=== PATIENT | female | born 1960 | race Caucasian/White ===

== ENCOUNTER 2020-04-28 14:25 | Outpatient (REF) | payer OTHER, SELFPAY ==
--- NOTE | 2020-04-28 15:36 | XR_ITS ---
EXAMINATION: XR CHEST CLINICAL INFORMATION: Asthma COMPARISON: None TECHNIQUE: 2 views of the chest were obtained. FINDINGS: Cardiac silhouette is at the upper limits of normal in size. Lungs are well aerated. There is no lobar consolidation. No pleural effusion or pneumothorax. Mild diffuse degenerative changes of the spine. IMPRESSION: No acute pulmonary pathology.
--- NOTE | 2020-04-28 15:36 | XR_ITS ---
EXAMINATION: XR SOFT TISSUE NECK CLINICAL INDICATION: Unspecified asthma, uncomplicated. J45.909. COMPARISON: None. TECHNIQUE: 2 views of the soft tissue neck were obtained. FINDINGS: The nasopharynx is patent measuring 4-6 mm in width. The vallecula is not well visualized, likely due to laxity of the tongue and technique. The epiglottis and aryepiglottic folds are normal. The subglottic airway is unremarkable. There is no prevertebral soft tissue swelling. There are degenerative changes cervical spine with disc narrowing C4-C5 and C5-C6. Both levels show mild retrolisthesis of C4 on C5 and C5 on C6, likely due to degenerative changes. There is no disc or facet widening. No vertebral compression. The lung apices are clear. IMPRESSION: 1. Unremarkable epiglottis, aryepiglottic folds, and subglottic airway. 2. Vallecula not well visualized, likely related to laxity of tongue and technique. 3. No prevertebral soft tissue swelling. 4. Degenerative changes cervical spine with disc narrowing and mild retrolisthesis C4-C5 and at C5-C6.
== END 2020-04-28 14:26 | disposition home or self-care (01) ==
LOC: HO.XRAY 14:25
PROVIDERS: PCP Internal Medicine; Referring Provider Internal Medicine; Visit Provider Internal Medicine
DX: R59.0 Localized enlarged lymph nodes (principal); R06.00 Dyspnea, unspecified; J45.909 Unspecified asthma, uncomplicated; G47.33 Obstructive sleep apnea (adult) (pediatric)
CPT/HCPCS: 70360; 71046; 99203; 99204

== ENCOUNTER 2020-05-05 11:07 | Outpatient (REF) | payer OTHER, SELFPAY ==
--- NOTE | 2020-05-06 08:38 | PFT_ITS ---
Forced vital capacity and FEV1 are normal. CTY53-32 slightly reduced. MVV normal. Post bronchodilator therapy, there is a significant improvement in BIF00-83, and slight improvement in FEV1. Total lung capacity and residual volume normal. Diffusion capacity normal. CONCLUSION: Mild obstructive airway disorder with complete reversibility after bronchodilator therapy. This finding is consistent with a mild degree of bronchial asthma. Clinical correlation recommended. MD ELEN Clemons/MODL / [id number]
== END 2020-05-05 11:08 | disposition home or self-care (01) ==
LOC: HO.RESP 11:07
PROVIDERS: PCP Internal Medicine; Visit Provider Internal Medicine
DX: R06.00 Dyspnea, unspecified (principal); J45.909 Unspecified asthma, uncomplicated
CPT/HCPCS: 94010

== ENCOUNTER 2020-05-24 10:50 | Outpatient (REF) | payer OTHER, SELFPAY ==
[2020-05-24 13:19] LABS: Blood Urea Nitrogen 21 mg/dL (9-16); Estimated Glomerular Filt Rate > 60
== END 2020-05-24 10:51 | disposition home or self-care (01) ==
LOC: HO.LAB 10:50
PROVIDERS: Visit Provider Internal Medicine
DX: R59.0 Localized enlarged lymph nodes (principal)
CPT/HCPCS: 82565; 84520

== ENCOUNTER 2020-05-25 09:07 | Outpatient (REF) | payer OTHER, SELFPAY ==
--- NOTE | 2020-05-25 09:12 | CT_ITS ---
EXAMINATION: CT SOFT TISSUE NECK WITH CONTRAST CLINICAL INFORMATION: Localized swelling. Mass and lump in neck. COMPARISON: Soft tissue neck radiographs 04/28/2020. TECHNIQUE: Following the intravenous administration of 60 mL of Omnipaque 350 intravenous contrast, helical imaging was performed in the axial plane with generation of coronal and sagittal reformatted images. This CT examination was performed using dose optimization techniques as appropriate, variously including the following: *Automated exposure control *Adjustment of mA and/or kV according to patient size (this includes techniques or standardized protocols for targeted exams where dose is matched to indication/reason for exam; i.e. extremities or head) *Use of iterative reconstruction technique DLP: 357 mGy-cm FINDINGS: There is a nasopharyngeal mucosal mass best illustrated on axial image 26 of 137 series 4. Multiple bulky right and left cervical lymph nodes are noted. For instance the dominant right level II cervical lymph node measures 3.3 cm in maximal transaxial dimension best illustrated on axial image 48 of 137 series 4 with multiple areas of central necrosis. A necrotic 2.3 cm left level II cervical lymph node is visualized on axial image 45 of the same series. Scattered small albeit suspicious right level V cervical lymph nodes are also noted. Television Production Technician spaces are symmetric. Parotid and submandibular glands are normal. The tongue base and epiglottis are normal. Preepiglottic fat is preserved. Glottic and subglottic airways are normal. The thyroid gland is normal and the remainder of the visualized visceral soft tissues are normal. Lung apices are clear. Aortic arch apex is normal. Cervical carotid and vertebral arteries are patent. Internal jugular veins fill symmetrically. There is no acute osseous finding. Specifically no worrisome lytic or blastic osseous lesion. There is a right mastoid tip effusion. Mild to moderate paranasal sinus disease within the sphenoid sinus. Globes and orbits are symmetric. Limited visualization of intracranial compartment reveals no abnormal finding. 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
[2020-05-25] MEDS: iohexoL 350 MG/ML 100 ML INFUS..BTL 60 ML IV (09:46)
== END 2020-05-25 09:08 | disposition home or self-care (01) ==
LOC: HO.CT 09:07
PROVIDERS: PCP Internal Medicine; Visit Provider Internal Medicine
DX: R22.1 Localized swelling, mass and lump, neck (principal)
CPT/HCPCS: 70491; Q9967

== ENCOUNTER → 2020-06-01 11:18 | Outpatient (BNVA) | payer OTHER, SELFPAY | PROVIDERS: PCP Internal Medicine; Visit Provider Internal Medicine | DX: R22.1 Localized swelling, mass and lump, neck (principal); J45.909 Unspecified asthma, uncomplicated | CPT/HCPCS: 99212 ==

== ENCOUNTER → 2020-06-18 13:49 | Outpatient (REF) | payer OTHER, SELFPAY ==
--- NOTE | 2020-06-18 14:00 | ECG_ITS ---
Test Reason : ANESTHESIA PRE OP Blood Pressure : / mmHG Vent. Rate : 076 BPM Atrial Rate : 076 BPM P-R Int : 164 ms QRS Dur : 088 ms QT Int : 382 ms P-R-T Axes : 020 007 020 degrees QTc Int : 429 ms Normal sinus rhythm Normal ECG No previous ECGs available Referred By: Kimberly Marques Electronically Signed By:KAYE MARTIN
== END ==
LOC: HO.CARD 13:49
PROVIDERS: PCP Internal Medicine; Visit Provider Nurse Practitioner Family
DX: Z01.818 Encounter for other preprocedural examination (principal)
CPT/HCPCS: 93005

== ENCOUNTER 2020-06-21 11:51 | Outpatient (REF) | payer OTHER, SELFPAY ==
[2020-06-21 12:19] LABS: MANUAL DIFF FLAG NO
[2020-06-21 12:25] LABS: Basophils Percent Auto 0.4 % (0-2); Eosinophils Percent Auto 0.4 % (0-4); Hematocrit 42.9 % (37-47); Hemoglobin 13.7 g/dl (12.0-16.0); Imm Gran Abs Auto 0.04 X10*3/uL (0.00-0.03); Imm Gran Pct Auto 0.5 % (0.0-0.4); Lymphocytes Absolute Auto 1.6 X10*3/uL (1.2-4.9); Lymphocytes Percent Auto 18.6 % (20-40); Mean Corpuscular HGB Conc 31.9 g/dl (31.0-35.0); Mean Corpuscular Hemoglobin 31.6 pg (27.0-33.0); Mean Corpuscular Volume 98.8 fL (80-98); Mean Platelet Volume 9.6 fL (9.4-12.3); Monocytes Absolute Auto 0.7 X10*3/uL (0.1-1.2); Monocytes Percent Auto 7.9 % (2-11); Neutrophils Absolute Auto 6.2 X10*3/uL (2.0-8.3); Neutrophils Percent Auto 72.2 % (45-73); Platelet Count 267 X10*3/uL (160-400); Red Blood Count 4.34 X10*6/uL (4.20-5.50); Red Cell Distribution Width 12.5 % (11.0-16.0); White Blood Count 8.6 X10*3/uL (4.8-10.8)
[2020-06-21 13:08] LABS: Anion Gap 16 (12-20); Blood Urea Nitrogen 19 mg/dL (9-16); Carbon Dioxide 28 mmol/L (22-29); Chloride 101 mmol/L (96-108); Estimated Glomerular Filt Rate > 60; Glucose Fasting 90 mg/dL (60-99); Potassium 4.2 mmol/l (3.3-5.1); Sodium 141 mmol/L (135-145)
[2020-06-25 11:52] LABS: Mixing Study - PT 10.3 sec (9.0-11.5); PTT LA 29 sec (< OR = 40)
== END 2020-06-21 11:52 | disposition home or self-care (01) ==
LOC: HO.LAB 11:51
PROVIDERS: Absent Provider Internal Medicine; PCP Internal Medicine; Visit Provider Nurse Practitioner Family
DX: Z01.818 Encounter for other preprocedural examination (principal); I10 Essential (primary) hypertension
CPT/HCPCS: 36415; 80048; 85025; 85611; 85732

== ENCOUNTER 2021-09-08 10:11 | Outpatient (REF) | payer OTHER, SELFPAY ==
--- NOTE | ~2021-09-08 | MM_ITS ---
EXAMINATION: MM SCREENING DIGITAL BREAST TOMOSYNTHESIS, BILATERAL CLINICAL INFORMATION: Screening. Asymptomatic. History head and neck cancer. The lifetime risk of breast cancer based on the Tyrer-Cuzick Model is 10%. COMPARISON: Mammography: 12/16/2014, 03/05/2012 TECHNIQUE: Digital breast tomosynthesis is performed in both the craniocaudal and mediolateral oblique views along with computer-aided detection (CAD). Synthesized 2D images are generated from the tomosynthesis. Additional right MLO view is provided. FINDINGS: There are scattered areas of fibroglandular density (ACR BI-RADS breast composition Category b). There is a fine fibronodular parenchymal pattern similar to prior studies. No interval developing density or dominant nodularity. There is a port partially overlying the posterior right axilla on MLO view. There are no significant masses, abnormal calcifications, or other abnormalities. Skin contours are smooth. MM/MM tomosynthesis screening BI IMPRESSION: No mammographic evidence of malignancy. ASSESSMENT: BI-RADS 2: Benign RECOMMENDATION: Routine annual mammography screening. This patient's information was entered into a reminder system with a target due date for their next mammogram.
== END 2021-09-08 10:12 | disposition home or self-care (01) ==
LOC: HO.MAMMO 10:11
PROVIDERS: PCP Internal Medicine; Visit Provider Internal Medicine
DX: Z12.31 Encounter for screening mammogram for malignant neoplasm of breast (principal)
CPT/HCPCS: 77063; 77067

== ENCOUNTER 2021-11-17 08:28 | Outpatient (REF) | payer OTHER, SELFPAY ==
[2021-11-17 08:48] LABS: MANUAL DIFF FLAG NO
[2021-11-17 09:58] LABS: Basophils Percent Auto 0.4 % (0-2); Eosinophils Absolute Auto 0.1 X10*3/uL (0.0-0.4); Eosinophils Percent Auto 1.6 % (0-4); Hematocrit 35.7 % (37.0-47.0); Hemoglobin 11.8 g/dl (12.0-16.0); Imm Gran Abs Auto 0.03 X10*3/uL (0.00-0.03); Imm Gran Pct Auto 0.7 % (0.0-0.4); Lymphocytes Absolute Auto 0.5 X10*3/uL (1.2-4.9); Mean Corpuscular HGB Conc 33.1 g/dl (31.0-35.0); Mean Corpuscular Hemoglobin 32.2 pg (27.0-33.0); Mean Corpuscular Volume 97.3 fL (80.0-98.0); Monocytes Absolute Auto 0.5 X10*3/uL (0.1-1.2); Monocytes Percent Auto 11.8 % (2-11); Neutrophils Absolute Auto 3.3 x10*3/uL (2.0-8.3); Neutrophils Percent Auto 73.5 % (45-73); Platelet Count 215 X10*3/uL (160-400); Red Blood Count 3.67 X10*6/uL (4.20-5.50); Red Cell Distribution Width 13.7 % (11.0-16.0); White Blood Count 4.5 X10*3/uL (4.8-10.8)
[2021-11-17 10:05] LABS: Appearance Urine CLEAR; Color Urine YELLOW; Glucose Urine UA NEG (NEG); Leukocyte Esterase Urine NEG (NEG); Nitrite Urine NEG (NEG); Urine Blood NEG (NEG); Urine Ketones NEG (NEG); Urine Protein NEG (NEG-TRACE)
[2021-11-17 10:16] LABS: Alanine Aminotransferase 18 U/L (0-31); Albumin Level 4.2 g/dL (3.5-5.0); Alkaline Phosphatase 83 U/L (39-117); Anion Gap 12 (12-20); Aspartate Amino Transferase 34 U/L (5-31); Bilirubin Total 0.7 mg/dL (0.0-1.0); Blood Urea Nitrogen 19 mg/dL (9-16); Carbon Dioxide 30 mmol/L (22-29); Chloride 97 mmol/L (96-108); Cholesterol 185 mg/dL; Estimated Glomerular Filt Rate 41; Glucose Fasting 98 mg/dL (60-99); HDL Cholesterol 56 mg/dL; LDL Cholesterol Calculated 70 mg/dl; Potassium 4.2 mmol/L (3.3-5.1); Sodium 135 mmol/L (135-145); Total Protein 7.5 g/dL (6.5-8.0); Triglycerides 295 mg/dL
[2021-11-17 10:39] LABS: TSH reflex Free T4 12.24 uIU/mL (0.32-4.0)
[2021-11-17 11:12] LABS: Free T4 (Free Thyroxine) 0.96 ng/dL (0.71-1.85)
== END 2021-11-17 08:29 | disposition home or self-care (01) ==
LOC: HO.LAB 08:28
PROVIDERS: PCP Internal Medicine; Visit Provider Internal Medicine
DX: E78.00 Pure hypercholesterolemia, unspecified (principal); I10 Essential (primary) hypertension
CPT/HCPCS: 36415; 80053; 80061; 81003; 84439; 84443; 85025

== ENCOUNTER 2022-10-24 13:39 | Outpatient (AMB) | payer OTHER, SELFPAY ==
[2022-10-24 13:47] VITALS: BP 118/76; PULSE 68; O2SAT 99; BMI 30.6
--- NOTE | 2022-10-24 13:47 | A.OFFPC_ITS ---
Vital Signs 10/24/22 13:47 Height 5 ft 2 in Weight 167 lb 4 oz BMI 30.6 BP 118/76 Blood Pressure Location Lt brachial Position Sitting Pulse 68 Pulse Source Pulse Oximeter Pulse Oximetry (%) 99 Oxygen Delivery Method Room Air Intake Visit Reasons: HTN, thyroid Intake Note: Patient is here to discuss hypertension and thyroid. Bioinformatics Analyst Required: No Accompanied by: Self / Same As Patient Allergies No Known Allergies Allergy (Verified 02/23/23 14:42) Medication List - Last Reconciled 10/24/22 by Jakob Reynolds MD amlodipine 10 mg PO DAILY atenolol 25 mg PO DAILY fluticasone propionate 50 mcg/actuation 2 sprays intranasal DAILY PRN 30 days levothyroxine 50 mcg PO DAILY loratadine 10 mg PO DAILY lorazepam 0.5 mg PO BID PRN 30 days rosuvastatin 5 mg PO DAILY sertraline 100 mg PO DAILY 90 days Tobacco use date assessed: 10/24/22 HPI HTN, thyroid HPI Details Patient comes in today for her follow up visit - was last seen by me almost a year ago on 12/24/2020 States that she completed her cancer Tx last year in 11/2020 Has been experiencing symptoms of neuropathy for the past year, which she was advised are mostly due to side effects from her chemothera[y Reports that her symptoms mostly include on and off burning pain and numbness in both feet and also (+) milder similar symptoms in her hands States that the numbness in her feet sometimes go up into her ankles and legs lately Notes that her anxiety has also been increasing lately States that she is only her Sertraline at 50 mg (instead of 100 mg QD) as she has felt very tired and does not feel like doing anything when she was on 100 mg QD a couple of months ago and she cut down on her dose on her own She denies any headaches or dizziness Denies any chest pains, no shortness of breath No nausea/ vomiting, no abdominal pain No change in bowel habits noted REPLACED BY [facility] Medical History (Updated 02/25/23 @ 18:30 by Jakob Reynolds MD) Allergic rhinitis Anxiety Asthma Asthma Benign essential hypertension Cervical adenopathy Depression Dyspnea Hypertension Hypothyroidism (acquired) Impaired fasting glucose Neck mass Obesity (BMI 30-39.9) MELLY (obstructive sleep apnea) Osteoarthritis of hand Pre-op examination Pre-op examination Pure hypercholesterolemia Recurrent sinus infections Squamous cell carcinoma of nasopharynx Vitamin B12 deficiency Surgical History No pertinent past surgical history Family History Father Hypertension Cardiovascular disease Mother Unknown family medical history Social History Housing: House Alcohol intake: former Patient Tobacco Use Status: Former Tobacco user Years Smoked: 44 years but stopped for years at a time e-Cigarette/Vaping Use: Never Used Second Hand Smoke Exposure: No service: No Current occupational status: unemployed and disabled Cognitive needs: No Hearing needs: No Vision needs: Yes (glasses) Questionnaire PHQ-9 Over the last 2 weeks, how often have you been bothered by any of the following problems? 1. Little interest or pleasure in doing things: several days 2. Feeling down, depressed, or hopeless: several days 3. Trouble falling or staying asleep, or sleeping too much: several days 4. Feeling tired or having little energy: not at all 5. Poor appetite or overeating: not at all 6. Feeling bad about yourself - or that you are a failure or have let yourself or your family down: not at all 7. Trouble concentrating on things, such as reading the newspaper or watching television: not at all 8. Moving or speaking so slowly that other people could have noticed. Or the opposite - being so fidgety or restless that you have been moving around a lot more than usual: not at all 9. Thoughts that you would be better off or of hurting yourself in some way: not at all Total score: 3 Depression Screening Interpretation: Positive Depression Screening Follow-up: Existing condition and In treatment 13332 - PHQ-9 Billing: Yes Source: Developed by Drs. Eddie Maldonado, Isabel Castellanos, Jose Puga and colleagues, with an educational bree from [employer]. Thrive Questionnaire Declines Thrive assessment: No Date Thrive assessed: 10/24/22 I am a: Patient What is your living situation today?: I have a steady place to live Within the past 12 months, did the food you bought not last and you didn't have the money to get more?: Never true Within the past 12 months, did you worry whether your food would run out before you got money to buy more?: Never true Do you have trouble paying for medicines?: No Do you have trouble getting transportation to medical appointments?: No Do you have trouble paying your heating and electricity bill?: No Do you have trouble taking care of your child, family member or friend?: No Do you have trouble with day-to-day activities such as bathing, preparing meals, shopping, managing finances, etc.?: No Are you currently unemployed and looking for a job?: No Are you interested in more education?: No Currently or been in a relationship where the following occur: no concerns reported AUDIT C Alcohol Use Questionnaire (AUDIT-C) 1. How often do you have a drink containing alcohol?: Never 3. How often do you have six or more drinks on one occasion?: Never Total Score: 0 Score Reviewed/Action Taken: Yes DAVIS-7 AMB Questionnaire DAVIS-7 Date DAVIS - 7 assessed: 10/24/22 Feeling nervous, anxious, or on edge: 1 = Several days Not being able to stop or control worryin = Several days Worrying too much about different things: 1 = Several days Trouble relaxin = Several days Being so restless that it is hard to sit still: 0 = Not at all Becoming easily annoyed or irritable: 0 = Not at all Feeling afraid as if something awful might happen: 0 = Not at all Total DAVIS-7 score (0-4 normal; 5-9 mild; 10-14 moderate; 15-21 severe): 4 Source: Developed by Drs. Eddie Maldonado, Isabel Castellanos, Jose Puga and colleagues, with an educational bree from [employer]. Review of Systems Const Denies chills, Reports fatigue, Denies fever(s) and Denies headache(s) ENT Denies dysphagia, Denies dizziness, Reports dry mouth (at times), Denies otalgia, Denies headache(s), Denies neck pain, Denies odynophagia, Reports tinnitus (on and off) and Denies sore throat Card Denies chest pain, Denies palpitations and Denies dyspnea Resp Denies cough and Denies dyspnea GI Denies abdominal pain, Denies constipation, Denies dysphagia, Denies heartburn, Denies diarrhea, Denies nausea, Denies odynophagia and Denies vomiting Denies difficulty voiding, Denies nocturia and Denies dysuria Musc Denies neck pain and Reports tingling (in both lower extremities) Neuro Denies dizziness, Denies headache(s), Reports tingling (in both lower extremities) and Reports paresthesias Psych Reports anxiety (increasing) Endo Reports fatigue and Denies palpitations Physical exam (Primary Care) Vital Signs: Last Vital Signs Pulse 68 10/24/22 13:47 BP 118/76 10/24/22 13:47 Pulse Ox 99 10/24/22 13:47 Oxygen Delivery Method Room Air 10/24/22 13:47 BMI result Body Mass Index 30.6 Tobacco/Smoking Status: Tobacco use Status Tobacco use date assessed 10/24/22 10/24/22 13:58 Patient Tobacco Use Status Former Tobacco user 10/24/22 13:58 e-Cigarette/Vaping Use Never Used 10/24/22 13:58 PHQ-9: PHQ-9 Score PHQ-9: Total score 3 10/24/22 14:28 Depression Screening Interpretation: Positive Depression Screening Follow-up: Existing condition and In treatment Thrive Assessment: Date of Thrive Assessment Date Thrive assessed 10/24/22 10/24/22 13:58 Currently or been in a relationship where the following occur: no concerns reported Const General: no acute distress and alert HENMT Ears: TM's normal bilaterally and EAC's normal Throat: Yes posterior oropharynx normal and Yes tonsils normal (no TP congestion noted) Neck Neck: Yes no lymphadenopathy and Yes supple Resp Auscultation: clear to auscultation bilaterally, no rales and no wheezes Cardio Rate: regular rate Rhythm: regular rhythm Heart sounds: no murmurs GI Palpation (GI): Soft to palpation and nontender Auscultation: normal bowel sounds Extrem General: Yes no clubbing, cyanosis or edema Assessment and Plan Assessment & Plan (1) Squamous cell carcinoma of nasopharynx: Code(s): C11.9 - Malignant neoplasm of nasopharynx, unspecified Plan: Patient completed her concurrent Cisplatin and radiation therapy for squamous cell carcinoma of the nasopharynx back in November 2020 and is currently in remission Follow up with ENT and oncology as scheduled for continuing surveillance (2) Neuropathy: Code(s): G62.9 - Polyneuropathy, unspecified Plan: Patient was reportedly started on Duloxetine 30 mg by oncology (AUTOMATION TESTER) for her neuropathy before but she is not sure if she should continue on it while she is also on her Sertraline Have instructed patient to continue on Duloxetine 30 mg QD and we will try to see we can wean her off Sertraline in the meantime Had advised her to stay on Duloxetine daily and we can slowly adjust / increase her dose over time, depending on her response to the medication (3) Benign essential hypertension: Code(s): I10 - Essential (primary) hypertension Plan: Reinforced low sodium diet - goal is systolic BP of at least 130 mm or less Continue Amlodipine 10 mg QD and Atenolol 25 mg QD (4) Pure hypercholesterolemia: Code(s): E78.00 - Pure hypercholesterolemia, unspecified Plan: Reinforced low cholesterol diet Continue Rosuvastatin 5 mg QD Will recheck her labs and fasting lipids for follow up [facility] as she has not had any follow-up labs done in almost a year now Will also have her recheck again her fasting lipids in 4 months for follow-up (5) Impaired fasting glucose: Code(s): R73.01 - Impaired fasting glucose Plan: In-office HgbA1c was normal at 5.5% when previously checked Reinforced low calorie diet/exercise as tolerated. (6) Hypothyroidism (acquired): Code(s): E03.9 - Hypothyroidism, unspecified Plan: Continue Levothyroxine 50 mcg QD Will recheck her TFTs [facility] for follow up (7) Asthma: Comment: Mild. Needs to use Albuterol MDI 2 puffs q 4-6 Hrs only PRN Code(s): J45.909 - Unspecified asthma, uncomplicated Qualifiers: Asthma severity: unspecified severity Asthma persistence: unspecified Asthma complication type: uncomplicated Qualified Code(s): J45.909 - Unspecified asthma, uncomplicated Plan: Stable - has Albuterol HFA that he uses at 1 to 2 puffs 4 times a day as needed but has not needed to use this in a while now (8) Allergic rhinitis: Code(s): J30.9 - Allergic rhinitis, unspecified Qualifiers: Allergic rhinitis trigger: unspecified Allergic rhinitis seasonality: unspecified Qualified Code(s): J30.9 - Allergic rhinitis, unspecified Plan: Continue Loratadine 10 mg QD and Fluticasone nasal spray 50 mcg QD PRN (9) Anxiety: Code(s): F41.9 - Anxiety disorder, unspecified Plan: Continue Lorazepam 0.5 mg BID PRN (10) Depression: Code(s): F32.9 - Major depressive disorder, single episode, unspecified Qualifiers: Depression Type: major depressive disorder Major depression recurrence: recurrent Active/Remission status: currently active Major depression episode severity: unspecified Qualified Code(s): F33.9 - Major depressive disorder, recurrent, unspecified Plan: Was started on Duloxetine 30 mg BID for her neuropathy by oncology last year Will have patient try to wean off her Sertraline slowly - she is currently on 100 mg QD and she can start by cutting her dose in half to 50 mg QD for 1 week, then she can try stopping the medicine completely after that Have instructed patient to call at any time should she develop any problems while she is weaning herself off her Sertraline Follow up with psychiatry as scheduled (11) Obesity (BMI 30-39.9): Code(s): E66.9 - Obesity, unspecified Plan: Reinforced diet/exercise as tolerated/lose weight Plan Follow up in 4 months Orders: Orders Complete Blood Count Auto Diff 10/24/22 I10 - Essential (primary) hypertension [facility] [place]. Panel Fast 10/24/22 E78.00 - Pure hypercholesterolemia, unsp ecified Lipid Panel 10/24/22 E78.00 - Pure hypercholesterolemia, unspecified Thyroid Stimulating Hormone 10/24/22 E03.9 - Hypothyroidism, unspecified Free T4 (Free Thyroxine) 10/24/22 E03.9 - Hypothyroidism, unspecified Vitamin B12 and Folate 10/24/22 E53.8 - Deficiency of other specified B group vitamins, G62.9 - Polyneuropathy, unspecified Vitamin D 25-OH Total 10/24/22 E55.9 - Vitamin D deficiency, unspecified UA CC w/rflx Micro + Cult 10/24/22 R30.0 - Dysuria Erythrocyte Sedimentation Rate 10/24/22 G62.9 - Polyneuropathy, unspecified Hemoglobin A1c 10/24/22 R73.01 - Impaired fasting glucose [facility] [place]. Panel Fast 4 Months E78.00 - Pure hypercholesterolemia, unspecified Lipid Panel 4 Months E78.00 - Pure hypercholesterolemia, unspecified Medications: New duloxetine 30 mg PO DAILY 30 caps 1RF 30 days G62.9 - Polyneuropathy, unspecified, F32.9 - Major depressive disorder, single episode, unspecified, F41.9 - Anxiety disorder, unspecified Discontinued sertraline Discontinued Reason: Doctor's Order 100 mg PO DAILY 90 days 90 tabs 1RF Coding Level of Care Code Est Pt Level 4 (08173) Diagnoses Squamous cell carcinoma of nasopharynx C11.9 Neuropathy G62.9 Benign essential hypertension I10 Pure hypercholesterolemia E78.00 Impaired fasting glucose R73.01 Hypothyroidism (acquired) E03.9 Asthma J45.909 Asthma severity: unspecified severity Asthma persistence: unspecified Asthma complication type: uncomplicated Allergic rhinitis J30.9 Allergic rhinitis trigger: unspecified Allergic rhinitis seasonality: unspecified Anxiety F41.9 Depression F33.9 Depression Type: major depressive disorder Major depression recurrence: recurrent Active/Remission status: currently active Major depression episode severity: unspecified Obesity (BMI 30-39.9) E66.9
== END 2022-10-24 14:38 | disposition home or self-care (01) ==
LOC: HO.HMGH 13:39
PROVIDERS: PCP Internal Medicine; Visit Provider Internal Medicine
DX: C11.9 Malignant neoplasm of nasopharynx, unspecified (principal); G62.9 Polyneuropathy, unspecified; I10 Essential (primary) hypertension; E78.00 Pure hypercholesterolemia, unspecified; R73.01 Impaired fasting glucose; E03.9 Hypothyroidism, unspecified; J45.909 Unspecified asthma, uncomplicated; J30.9 Allergic rhinitis, unspecified; F41.9 Anxiety disorder, unspecified; F33.9 Major depressive disorder, recurrent, unspecified; E66.9 Obesity, unspecified
CPT/HCPCS: 99214

== ENCOUNTER 2022-12-13 09:05 | Outpatient (REF) | payer MEDICARE, MEDICAID, SELFPAY ==
[2022-12-13 11:01] LABS: MANUAL DIFF FLAG NO
[2022-12-13 11:08] LABS: Basophils Percent Auto 0.7 % (0-2); Eosinophils Absolute Auto 0.1 X10*3/uL (0.0-0.4); Eosinophils Percent Auto 2.5 % (0-4); Hematocrit 35.3 % (37.0-47.0); Hemoglobin 11.7 g/dl (12.0-16.0); Imm Gran Abs Auto 0.02 X10*3/uL (0.00-0.03); Imm Gran Pct Auto 0.5 % (0.0-0.4); Lymphocytes Absolute Auto 0.7 X10*3/uL (1.2-4.9); Lymphocytes Percent Auto 16.5 % (20-40); Mean Corpuscular HGB Conc 33.1 g/dl (31.0-35.0); Mean Corpuscular Hemoglobin 33.7 pg (27.0-33.0); Mean Corpuscular Volume 101.7 fL (80.0-98.0); Mean Platelet Volume 9.2 fL (9.4-12.3); Monocytes Absolute Auto 0.4 X10*3/uL (0.1-1.2); Neutrophils Absolute Auto 2.8 x10*3/uL (2.0-8.3); Neutrophils Percent Auto 68.8 % (45-73); Platelet Count 174 X10*3/uL (160-400); Red Blood Count 3.47 X10*6/uL (4.20-5.50); Red Cell Distribution Width 13.3 % (11.0-16.0)
[2022-12-13 11:52] LABS: Erythrocyte Sedimentation Rate 25 MM/HR (0-20); Estimated Average Glucose 94 mg/dL; Hemoglobin A1c % 4.9 %
[2022-12-13 12:26] LABS: Alanine Aminotransferase 30 U/L (0-31); Albumin Level 4.5 g/dL (3.5-5.0); Alkaline Phosphatase 111 U/L (39-117); Anion Gap 16 (12-20); Aspartate Amino Transferase 62 U/L (5-31); Bilirubin Total 1.1 mg/dL (0.0-1.0); Blood Urea Nitrogen 23 mg/dL (9-16); Carbon Dioxide 27 mmol/L (22-29); Chloride 99 mmol/L (96-108); Cholesterol 237 mg/dL; Estimated Glomerular Filt Rate 38; Glucose Fasting 87 mg/dL (60-99); HDL Cholesterol 68 mg/dL; LDL Cholesterol Calculated 110 mg/dl; Potassium 4.4 mmol/L (3.3-5.1); Sodium 138 mmol/L (135-145); Total Protein 7.5 g/dL (6.5-8.0); Triglycerides 298 mg/dL
[2022-12-13 12:46] LABS: Folate 8.7 ng/mL (> or = 4.0); Free T4 (Free Thyroxine) 0.77 ng/dL (0.71-1.85); Thyroid Stimulating Hormone 14.44 uIU/mL (0.32-4.0); Vitamin B12 210 pg/mL (200-900); Vitamin D 25-OH Total 39.5 ng/mL (>30)
== END 2022-12-13 09:06 | disposition home or self-care (01) ==
LOC: HO.10HDL 09:05
PROVIDERS: Visit Provider Internal Medicine
DX: I10 Essential (primary) hypertension (principal); E03.9 Hypothyroidism, unspecified; E53.8 Deficiency of other specified B group vitamins; G62.9 Polyneuropathy, unspecified; E78.00 Pure hypercholesterolemia, unspecified; E55.9 Vitamin D deficiency, unspecified; R73.01 Impaired fasting glucose
CPT/HCPCS: 36415; 80053; 80061; 82306; 82607; 82746; 83036; 84439; 84443; 85025; 85652

== ENCOUNTER 2023-02-23 14:08 | Outpatient (AMB) | payer MEDICARE, MEDICAID, SELFPAY ==
--- NOTE | 2023-02-23 14:09 | MHC.PC.OV ---
Vital Signs 02/23/23 14:10 Height 5 ft 2 in Weight 170 lb 2 oz BMI 31.1 BP 100/76 Blood Pressure Location Lt brachial Position Sitting Pulse 78 Pulse Source Pulse Oximeter Pulse Oximetry (%) 98 Oxygen Delivery Method Room Air Intake Visit Reasons: [facility] f/u Mexican [employer] Required: No Accompanied by: Self / Same As Patient Allergies No Known Allergies Allergy (Verified 02/23/23 14:42) Medication List - Last Reconciled 02/23/23 by Jakob Reynolds MD amlodipine 10 mg PO DAILY atenolol 25 mg PO DAILY duloxetine 30 mg PO DAILY 30 days fluticasone propionate 50 mcg/actuation 2 sprays intranasal DAILY PRN 30 days levothyroxine 50 mcg PO DAILY loratadine 10 mg PO DAILY lorazepam 0.5 mg PO BID PRN 30 days rosuvastatin 5 mg PO DAILY Tobacco use date assessed: 02/23/23 Dental Screening Dental Screen Date: 02/23/23 Did you have a dental visit in the last 12 months?: Yes Did you have a dental problem in the last 6 months where you did not have access to dental care?: No Was dental information given to patient?: Patient has dentist HPI [facility] f/u HPI Details Patient comes in today for her follow up visit States that she has been experiencing symptoms of neuropathy (recurrent numbness and tingling sensations in her arms and legs) since she had her cancer Tx a couple of years ago and feels that her symptoms have been getting worse lately Relates that she has been having trouble walking as a result and more recently fell from her porch last weekend States that she sustained some bruises on her left hand, left knee and on her face but fortunately did not get hurt more than that Adds that she has been experiencing increased anxiety lately as she has not been able to get her Lorazepam 0.5 mg Rx refilled on time due to unavailablity of the medication at her local pharmacy She denies any headaches or dizziness Denies any chest pains, no shortness of breath No nausea /vomiting, no abdominal pain No change in bowel habits noted Had her follow-up labs done a couple of months ago - to discuss her results [facility] Medical History (Updated 02/25/23 @ 18:30 by Jakob Reynolds MD) Allergic rhinitis Anxiety Asthma Asthma Benign essential hypertension Cervical adenopathy Depression Dyspnea Hypertension Hypothyroidism (acquired) Impaired fasting glucose Neck mass Obesity (BMI 30-39.9) MELLY (obstructive sleep apnea) Osteoarthritis of hand Pre-op examination Pre-op examination Pure hypercholesterolemia Recurrent sinus infections Squamous cell carcinoma of nasopharynx Vitamin B12 deficiency Surgical History No pertinent past surgical history Family History Father Hypertension Cardiovascular disease Mother Unknown family medical history Social History Housing: House Alcohol intake: former Patient Tobacco Use Status: Former Tobacco user Years Smoked: 44 years but stopped for years at a time e-Cigarette/Vaping Use: Never Used Second Hand Smoke Exposure: No service: No Current occupational status: unemployed and disabled Cognitive needs: No Hearing needs: No Vision needs: Yes (glasses) Questionnaire PHQ-9 Over the last 2 weeks, how often have you been bothered by any of the following problems? 1. Little interest or pleasure in doing things: several days 2. Feeling down, depressed, or hopeless: several days 3. Trouble falling or staying asleep, or sleeping too much: several days 4. Feeling tired or having little energy: not at all 5. Poor appetite or overeating: not at all 6. Feeling bad about yourself - or that you are a failure or have let yourself or your family down: not at all 7. Trouble concentrating on things, such as reading the newspaper or watching television: not at all 8. Moving or speaking so slowly that other people could have noticed. Or the opposite - being so fidgety or restless that you have been moving around a lot more than usual: not at all 9. Thoughts that you would be better off or of hurting yourself in some way: not at all Total score: 3 Depression Screening Interpretation: Positive Depression Screening Follow-up: Existing condition and In treatment 29910 - PHQ-9 Billing: Yes Source: Developed by Drs. Eddie Maldonado, Isabel Castellanos, Jose Puga and colleagues, with an educational bree from [employer]. Thrive Questionnaire Date Thrive assessed: 02/23/23 I am a: Patient What is your living situation today?: I have a steady place to live Within the past 12 months, did the food you bought not last and you didn't have the money to get more?: Never true Within the past 12 months, did you worry whether your food would run out before you got money to buy more?: Never true Do you have trouble paying for medicines?: No Do you have trouble getting transportation to medical appointments?: No Do you have trouble paying your heating and electricity bill?: No Do you have trouble taking care of your child, family member or friend?: No Do you have trouble with day-to-day activities such as bathing, preparing meals, shopping, managing finances, etc.?: No Are you currently unemployed and looking for a job?: No Are you interested in more education?: No Please select the resources that you would like help with: None Currently or been in a relationship where the following occur: no concerns reported AUDIT C Alcohol Use Questionnaire (AUDIT-C) 1. How often do you have a drink containing alcohol?: Never 3. How often do you have six or more drinks on one occasion?: Never Total Score: 0 Score Reviewed/Action Taken: Yes DAVIS-7 AMB Questionnaire DAVIS-7 Date DAVIS - 7 assessed: 02/23/23 Feeling nervous, anxious, or on edge: 1 = Several days Not being able to stop or control worryin = Several days Worrying too much about different things: 1 = Several days Trouble relaxin = Several days Being so restless that it is hard to sit still: 0 = Not at all Becoming easily annoyed or irritable: 0 = Not at all Feeling afraid as if something awful might happen: 0 = Not at all Total DAVIS-7 score (0-4 normal; 5-9 mild; 10-14 moderate; 15-21 severe): 4 Source: Developed by Drs. Eddie Maldonado, Isabel Castellanos, Jose Puga and colleagues, with an educational bree from [employer]. Review of Systems Const Denies chills, Reports fatigue, Denies fever(s) and Denies headache(s) ENT Denies dysphagia, Denies dizziness, Reports dry mouth (at times), Denies otalgia, Denies headache(s), Denies neck pain, Denies odynophagia, Reports tinnitus (on and off) and Denies sore throat Card Denies chest pain, Denies palpitations and Denies dyspnea Resp Denies cough and Denies dyspnea GI Denies abdominal pain (but frequent abdominal discomfort), Denies constipation, Denies dysphagia, Denies heartburn, Denies diarrhea, Denies nausea, Denies odynophagia and Denies vomiting Denies difficulty voiding, Denies nocturia and Denies dysuria Musc Denies neck pain and Reports tingling (in both lower extremities) Neuro Denies dizziness, Denies headache(s), Reports tingling (in both lower extremities) and Reports paresthesias Endo Reports fatigue and Denies palpitations Physical exam (Primary Care) Vital Signs: Last Vital Signs Pulse 78 02/23/23 14:10 BP 100/76 02/23/23 14:10 Pulse Ox 98 02/23/23 14:10 Oxygen Delivery Method Room Air 02/23/23 14:10 BMI result Body Mass Index 31.1 Tobacco/Smoking Status: Tobacco use Status Tobacco use date assessed 02/23/23 02/23/23 14:17 Patient Tobacco Use Status Former Tobacco user 02/23/23 14:17 e-Cigarette/Vaping Use Never Used 02/23/23 14:17 PHQ-9: PHQ-9 Score PHQ-9: Total score 3 02/23/23 14:45 Depression Screening Interpretation: Positive Depression Screening Follow-up: Existing condition and In treatment Thrive Assessment: Date of Thrive Assessment Date Thrive assessed 02/23/23 02/23/23 14:17 Currently or been in a relationship where the following occur: no concerns reported Const General: no acute distress and alert HENMT Ears: TM's normal bilaterally and EAC's normal Throat: Yes posterior oropharynx normal and Yes tonsils normal (no TP congestion noted) Neck Neck: Yes no lymphadenopathy and Yes supple Resp Auscultation: clear to auscultation bilaterally, no rales and no wheezes Cardio Rate: regular rate Rhythm: regular rhythm Heart sounds: no murmurs GI Other: (+) G-tube in place Palpation (GI): Soft to palpation and nontender Auscultation: normal bowel sounds Extrem General: Yes no clubbing, cyanosis or edema Results Reviewed Results Reviewed: Laboratory Tests 12/13/22 12/13/2223 09:07 09:07 09:07 WBC 4.0 L Hgb 11.7 L Hct 35.3 L Plt Count 174 ESR 25 H Sodium 138 Potassium 4.4 Creatinine 1.41 H Estimated GFR 38 Fasting Glucose 87 Hemoglobin A1c % Calcium 10.0 AST 62 H ALT 30 Triglycerides 298 Cholesterol 237 LDL Cholesterol, Calc 110 HDL Cholesterol 68 Vitamin B12 210 25-OH Vitamin D Total 39.5 TSH 14.44 H Free T4 0.77 12/13/22 09:07 WBC Hgb Hct Plt Count ESR Sodium Potassium Creatinine Estimated GFR Fasting Glucose Hemoglobin A1c % 4.9 Calcium AST ALT Triglycerides Cholesterol LDL Cholesterol, Calc HDL Cholesterol Vitamin B12 25-OH Vitamin D Total TSH Free T4 Assessment and Plan Assessment & Plan (1) Squamous cell carcinoma of nasopharynx: Code(s): C11.9 - Malignant neoplasm of nasopharynx, unspecified Plan: Patient completed her concurrent Cisplatin and radiation therapy for squamous cell carcinoma of the nasopharynx back in November 2020 and currently remains in remission Follow up with ENT and oncology as scheduled for continuing surveillance (2) Neuropathy: Code(s): G62.9 - Polyneuropathy, unspecified Plan: Will send patient for NCV & EMG [facility] for further evaluation Patient is advised that her Vitamin B12 level was low on her labs done a couple of months ago and this may also be partly the reason for her recently increasing symptoms of numbness and tingling sensation in her lower extremities She will be started on Vitamin B12 supplements today at 1000 mcg QD She is also instructed to increase her Duloxetine from 30 mg QD to BID (3) Benign essential hypertension: Code(s): I10 - Essential (primary) hypertension Plan: Reinforced low sodium diet - goal is systolic BP of at least 130 mm or less Continue Amlodipine 10 mg QD and Atenolol 25 mg QD (4) Pure hypercholesterolemia: Code(s): E78.00 - Pure hypercholesterolemia, unspecified Plan: Results of her labs done a couple of months ago reviewed and discussed with patient - cautioned that her cholesterol levels were elevated on her recent labs compared to her numbers last year Reinforced low cholesterol diet - patient admits to poor compliance with diet over the past several months Continue Rosuvastatin 5 mg QD for now Will recheck labs and fasting lipids in 3 months for follow up (5) Impaired fasting glucose: Code(s): R73.01 - Impaired fasting glucose Plan: HgbA1c was normal at 4.9% on her labs done a couple of months ago; in-office HgbA1c done previously was also normal at 5.5% Reinforced low calorie diet/exercise as tolerated. (6) Vitamin B12 deficiency: Code(s): E53.8 - Deficiency of other specified B group vitamins Plan: Her B12 level was low on her labs done back in December 2022 Will start her on Vitamin B12 1000 mcg QD Will recheck her Vitamin B12 level in 3 months for follow up (7) Hypothyroidism (acquired): Code(s): E03.9 - Hypothyroidism, unspecified Plan: Continue Levothyroxine 50 mcg QD Patient's free T4 level was normal when checked back in December 2022 but her TSH level remains elevated Will recheck her TFTs in 3 months and will include TPO level for further evaluation (8) Asthma: Comment: Mild. Needs to use Albuterol MDI 2 puffs q 4-6 Hrs only PRN Code(s): J45.909 - Unspecified asthma, uncomplicated Qualifiers: Asthma severity: unspecified severity Asthma persistence: unspecified Asthma complication type: uncomplicated Qualified Code(s): J45.909 - Unspecified asthma, uncomplicated Plan: Stable - has Albuterol HFA that he uses at 1 to 2 puffs 4 times a day as needed but has not needed to use this in a while now (9) Allergic rhinitis: Code(s): J30.9 - Allergic rhinitis, unspecified Qualifiers: Allergic rhinitis trigger: unspecified Allergic rhinitis seasonality: unspecified Qualified Code(s): J30.9 - Allergic rhinitis, unspecified Plan: Continue Loratadine 10 mg QD and Fluticasone nasal spray 50 mcg QD PRN (10) Anxiety: Code(s): F41.9 - Anxiety disorder, unspecified Plan: Patient has been on Lorazepam 0.5 mg BID PRN for years but has been having trouble getting this refilled on time lately due to unavailability of the prescription at her local pharmacy She has been advised by her pharmacy recently that this is a disability attorney and supplier issue Have advised patient to call and check around with the different pharmacies in the area and find out if anyone of them has the medication in stock and we can send or call in her prescription to that pharmacy in the mean time (11) Depression: Code(s): F32.9 - Major depressive disorder, single episode, unspecified Qualifiers: Depression Type: major depressive disorder Major depression recurrence: recurrent Active/Remission status: currently active Major depression episode severity: unspecified Qualified Code(s): F33.9 - Major depressive disorder, recurrent, unspecified Plan: Was started on Duloxetine 30 mg BID for her neuropathy by oncology last year but for unclear reasons, she is somehow taking this QD only Will increase her Duloxetine to 30 mg BID Patient was also on Sertraline in the past (100 mg QD) but as this is also an antidepressant, she was able to come off her Sertraline then but now appears to be experiencing increasing anxiety Will start her additionally for now on Mirtazapine 7.5 mg Q HS - advised that this should help with her mood disorder - both with anxiety and depression Follow up with psychiatry as scheduled (12) Obesity (BMI 30-39.9): Code(s): E66.9 - Obesity, unspecified Plan: Reinforced diet/exercise as tolerated/lose weight Plan Follow up in 3 months Orders: Orders NE nerve conduction velocity 02/23/ G62.9 - Polyneuropathy, unspecified NE electromyogram (EMG) 02/23/23 G62.9 - Polyneuropathy, unspecified Complete Blood Count Auto Diff 3 Months I10 - Essential (primary) hypertension Comprehensive [place]. Panel Fast 3 Months E78.00 - Pure hypercholesterolemia, unspecified Vitamin B12 and Folate 3 Months E53.8 - Deficiency of other specified B group vitamins Free T4 (Free Thyroxine) 3 Months E03.9 - Hypothyroidism, unspecified Vitamin D 25-OH Total 3 Months E55.9 - Vitamin D deficiency, unspecified Thyroid Stimulating Hormone 3 Months E03.9 - Hypothyroidism, unspecified Lipid Panel 3 Months E78.00 - Pure hypercholesterolemia, unspecified UA CC w/rflx Micro + Cult 3 Months R30.0 - Dysuria Methylmalonic Acid 3 Months D51.8 - Other vitamin B12 deficiency anemias Thyroid Peroxidase Antibodies 3 Months R79.89 - Other specified abnormal findings of blood chemistry Medications: New cyanocobalamin (vitamin B-12) 1,000 mcg PO DAILY 90 days 90 tabs 3RF mirtazapine 7.5 mg PO BEDTIME 30 days 30 tabs 3RF Changed From duloxetine 30 mg PO DAILY 30 days 30 caps 1RF F32.9 - Major depressive disorder, single episode, unspecified, F41.9 - Anxiety disorder, unspecified, G62.9 - Polyneuropathy, unspecified To duloxetine 30 mg PO BID 30 days 60 caps 2RF F32.9 - Major depressive disorder, single episode, unspecified, F41.9 - Anxiety disorder, unspecified, G62.9 - Polyneuropathy, unspecified Coding Level of Care Code Est Pt Level 4 (98660) Diagnoses Squamous cell carcinoma of nasopharynx C11.9 Neuropathy G62.9 Benign essential hypertension I10 Pure hypercholesterolemia E78.00 Impaired fasting glucose R73.01 Vitamin B12 deficiency E53.8 Hypothyroidism (acquired) E03.9 Asthma J45.909 Asthma severity: unspecified severity Asthma persistence: unspecified Asthma complication type: uncomplicated Allergic rhinitis J30.9 Allergic rhinitis trigger: unspecified Allergic rhinitis seasonality: unspecified Anxiety F41.9 Depression F33.9 Depression Type: major depressive disorder Major depression recurrence: recurrent Active/Remission status: currently active Major depression episode severity: unspecified Obesity (BMI 30-39.9) E66.9
[2023-02-23 14:10] VITALS: BP 100/76; PULSE 78; O2SAT 98; BMI 31.1
== END 2023-02-23 15:02 | disposition home or self-care (01) ==
PROVIDERS: PCP Internal Medicine; Visit Provider Internal Medicine
DX: I10 Essential (primary) hypertension (principal); E03.9 Hypothyroidism, unspecified; J45.909 Unspecified asthma, uncomplicated; F41.9 Anxiety disorder, unspecified; C11.9 Malignant neoplasm of nasopharynx, unspecified; F33.9 Major depressive disorder, recurrent, unspecified; E78.00 Pure hypercholesterolemia, unspecified; G62.9 Polyneuropathy, unspecified; R73.01 Impaired fasting glucose; E53.8 Deficiency of other specified B group vitamins; J30.9 Allergic rhinitis, unspecified; E66.9 Obesity, unspecified
CPT/HCPCS: 99214

== ENCOUNTER 2023-04-13 10:50 | Outpatient (REF) | payer MEDICARE, MEDICAID, SELFPAY | END 2023-04-13 10:51 | disposition home or self-care (01) | LOC: HO.NEURO 10:50 | PROVIDERS: PCP Internal Medicine; Visit Provider Internal Medicine | DX: G62.9 Polyneuropathy, unspecified (principal); R20.2 Paresthesia of skin | CPT/HCPCS: 95886; 95909 ==

== ENCOUNTER → 2023-04-13 10:53 | Outpatient (BNV) | payer MEDICARE, MEDICAID, SELFPAY | PROVIDERS: PCP Internal Medicine; Visit Provider Physical Medicine & Rehabilitation | DX: G62.89 Other specified polyneuropathies (principal) | CPT/HCPCS: 95886; 95909 ==

== ENCOUNTER 2023-12-10 10:23 | Outpatient (REF) | payer MEDICARE, MEDICAID, SELFPAY ==
[2023-12-10 10:57] LABS: Appearance Urine Cloudy; Color Urine Yellow; Glucose Urine UA Negative (Negative); Leukocyte Esterase Urine Small (1+) (Negative); Nitrite Urine Negative (Negative); PH 5.5 (5.0-9.0); Specific Gravity - Urine 1.015 (1.005-1.025); UMIC TRIGGER UACC YES; Urine Blood Negative (Negative); Urine Ketones Trace mg/dL (Negative); Urine Protein Trace mg/dL (Neg-Trace)
[2023-12-10 11:01] LABS: MANUAL DIFF FLAG NO
[2023-12-10 11:16] LABS: Bacteria Urine None Seen (None Seen); Granular Casts Urine Present; Hyaline Casts Urine >20 /LPF (0-2); RBC Urine 0-2 /HPF (0-2); UACC Culture Trigger YES; WBC Urine 0-5 /HPF (0-5)
[2023-12-10 11:31] LABS: Alanine Aminotransferase 17 U/L (0-31); Albumin Level 4.4 g/dL (3.5-5.0); Alkaline Phosphatase 95 U/L (39-117); Anion Gap 16 (12-20); Aspartate Amino Transferase 30 U/L (5-31); Bilirubin Total 0.6 mg/dL (0.0-1.0); Blood Urea Nitrogen 21 mg/dL (9-16); Calcium 10.5 mg/dL (8.4-10.2); Carbon Dioxide 25 mmol/L (22-29); Chloride 100 mmol/L (96-108); Cholesterol 208 mg/dL (<200); Estimated Glomerular Filt Rate 30; Glucose Fasting 99 mg/dL (60-99); HDL Cholesterol 77 mg/dL (>40); LDL Cholesterol Calculated 101 mg/dL (<100); Potassium 4.5 mmol/L (3.3-5.1); Sodium 136 mmol/L (135-145); Total Protein 7.6 g/dL (6.5-8.0); Triglycerides 153 mg/dL (<150)
[2023-12-10 11:34] LABS: Free T4 (Free Thyroxine) 0.77 ng/dL (0.71-1.85); Thyroid Stimulating Hormone 30.79 uIU/mL (0.32-4.0); Vitamin D 25-OH Total 26.1 ng/mL (>30)
[2023-12-10 11:35] LABS: Basophils Percent Auto 0.5 % (0-2); Eosinophils Absolute Auto 0.1 X10*3/uL (0.0-0.4); Eosinophils Percent Auto 1.1 % (0-4); Hematocrit 32.5 % (37.0-47.0); Imm Gran Abs Auto 0.04 X10*3/uL (0.00-0.03); Imm Gran Pct Auto 0.6 % (0.0-0.4); Lymphocytes Absolute Auto 0.7 X10*3/uL (1.2-4.9); Lymphocytes Percent Auto 11.3 % (20-40); Mean Corpuscular HGB Conc 33.8 g/dl (31.0-35.0); Mean Corpuscular Hemoglobin 35.7 pg (27.0-33.0); Mean Corpuscular Volume 105.5 fL (80.0-98.0); Mean Platelet Volume 9.6 fL (9.4-12.3); Monocytes Absolute Auto 0.4 X10*3/uL (0.1-1.2); Monocytes Percent Auto 6.8 % (2-11); NRBC Pct Auto 0.3 /100WBC (0.0-0.2); Neutrophils Absolute Auto 4.9 x10*3/uL (2.0-8.3); Neutrophils Percent Auto 79.7 % (45-73); Platelet Count 225 X10*3/uL (160-400); Red Blood Count 3.08 X10*6/uL (4.20-5.50); White Blood Count 6.2 X10*3/uL (4.8-10.8)
[2023-12-10 12:41] LABS: Folate 7.7 ng/mL (> or = 4.0); Vitamin B12 242 pg/mL (200-900)
[2023-12-12 21:33] LABS: Thyroid Peroxidase Antibodies 765 IU/mL (<9)
[2023-12-15 16:38] LABS: Methylmalonic Acid 296 nmol/L (87-318)
== END 2023-12-10 10:24 | disposition home or self-care (01) ==
LOC: HO.10HDL 10:23
PROVIDERS: Visit Provider Internal Medicine
DX: E55.9 Vitamin D deficiency, unspecified (principal); E03.9 Hypothyroidism, unspecified; E78.00 Pure hypercholesterolemia, unspecified; I10 Essential (primary) hypertension; E53.8 Deficiency of other specified B group vitamins; R79.89 Other specified abnormal findings of blood chemistry
CPT/HCPCS: 36415; 80053; 80061; 81001; 82306; 82607; 82746; 83921; 84439; 84443; 85025; 86376; 87086

== ENCOUNTER 2023-12-11 16:47 | Outpatient (AMB) | payer MEDICARE, MEDICAID, SELFPAY ==
[2023-12-11 16:50] VITALS: BP 122/84; PULSE 75; O2SAT 99; BMI 35.5
--- NOTE | 2023-12-11 16:50 | MHC.PC.OV ---
Vital Signs 12/11/23 16:50 Height 5 ft 2 in Weight 194 lb BMI 35.5 BP 122/84 Blood Pressure Location Lt brachial Position Sitting Pulse 75 Pulse Source Pulse Oximeter Pulse Oximetry (%) 99 Oxygen Delivery Method Room Air Intake Visit Reasons: urology referral Roofing Foreman Required: No Clinical Manager Home Care: Not Required per policy Accompanied by: Self / Same As Patient Allergies No Known Allergies Allergy (Verified 12/11/23 17:08) Medication List - Last Reconciled 12/11/23 by Jakob Reynolds MD amlodipine 10 mg PO DAILY atenolol 25 mg PO DAILY cyanocobalamin (vitamin B-12) 1,000 mcg PO DAILY 90 days duloxetine 30 mg PO BID 30 days fluticasone propionate 50 mcg/actuation 2 sprays intranasal DAILY PRN 30 days levothyroxine 50 mcg PO DAILY loratadine 10 mg PO DAILY lorazepam 0.5 mg PO BID PRN 30 days mirtazapine 7.5 mg PO BEDTIME 30 days rosuvastatin 5 mg PO DAILY sertraline 100 mg PO DAILY 90 days Tobacco use date assessed: 12/11/23 Dental Screening Dental Screen Date: 12/11/23 Did you have a dental visit in the last 12 months?: Yes Did you have a dental problem in the last 6 months where you did not have access to dental care?: No Was dental information given to patient?: Patient has dentist HPI urology referral HPI Details Patient comes in today mainly to request for a referral to urology She has not been back since her last visit on 02/23/2023 States that reason she wants to see urology is because she has been coming down with urinary tract infections very frequently lately She currently feels okay otherwise She denies any headaches or dizziness Denies any chest pains, no shortness of breath No nausea / vomiting, no abdominal pain No change in bowel habits noted She had her follow-up lab done yesterday - to discuss her results [facility] Medical History (Updated 01/14/24 @ 01:50 by Jakob Reynolds MD) Vitamin D deficiency Hypothyroidism (acquired) Vitamin B12 deficiency Obesity (BMI 30-39.9) Depression Allergic rhinitis Impaired fasting glucose Pure hypercholesterolemia Benign essential hypertension Squamous cell carcinoma of nasopharynx Pre-op examination Hypertension Pre-op examination Asthma Recurrent sinus infections Neck mass Anxiety Osteoarthritis of hand Dyspnea Cervical adenopathy MELLY (obstructive sleep apnea) Asthma Surgical History No pertinent past surgical history Family History Father Hypertension Cardiovascular disease Mother Unknown family medical history Social History Housing: House Alcohol intake: former Patient Tobacco Use Status: Former Tobacco user Years Smoked: 44 years but stopped for years at a time e-Cigarette/Vaping Use: Never Used Second Hand Smoke Exposure: No service: No Current occupational status: unemployed and disabled Cognitive needs: No Hearing needs: No Vision needs: Yes (glasses) Questionnaire PHQ-9 Over the last 2 weeks, how often have you been bothered by any of the following problems? 1. Little interest or pleasure in doing things: several days 2. Feeling down, depressed, or hopeless: several days 3. Trouble falling or staying asleep, or sleeping too much: several days 4. Feeling tired or having little energy: not at all 5. Poor appetite or overeating: not at all 6. Feeling bad about yourself - or that you are a failure or have let yourself or your family down: not at all 7. Trouble concentrating on things, such as reading the newspaper or watching television: not at all 8. Moving or speaking so slowly that other people could have noticed. Or the opposite - being so fidgety or restless that you have been moving around a lot more than usual: not at all 9. Thoughts that you would be better off or of hurting yourself in some way: not at all Total score: 3 Depression Screening Interpretation: Positive Depression Screening Follow-up: Existing condition and In treatment Depression Screening Done: Yes 13720 - PHQ-9 Billing: Yes Source: Developed by Drs. Eddie Maldonado, Isabel Castellanos, Jose Puga and colleagues, with an educational bree from [employer]. Thrive Questionnaire Date Thrive assessed: 12/11/23 I am a: Patient What is your living situation today?: I have a steady place to live Within the past 12 months, did the food you bought not last and you didn't have the money to get more?: Never true Within the past 12 months, did you worry whether your food would run out before you got money to buy more?: Never true Do you have trouble paying for medicines?: No Do you have trouble getting transportation to medical appointments?: No Do you have trouble paying your heating and electricity bill?: No Do you have trouble taking care of your child, family member or friend?: No Do you have trouble with day-to-day activities such as bathing, preparing meals, shopping, managing finances, etc.?: No Are you currently unemployed and looking for a job?: No Are you interested in more education?: No Please select the resources that you would like help with: None Currently or been in a relationship where the following occur: no concerns reported THRIVE Score: 0 AUDIT C Alcohol Use Questionnaire (AUDIT-C) 1. How often do you have a drink containing alcohol?: Never 3. How often do you have six or more drinks on one occasion?: Never Total Score: 0 Score Reviewed/Action Taken: Yes DAVIS-7 AMB Questionnaire DAVIS-7 Date DAVIS - 7 assessed: 12/11/23 Feeling nervous, anxious, or on edge: 0 = Not at all Not being able to stop or control worryin = Not at all Worrying too much about different things: 0 = Not at all Trouble relaxin = Not at all Being so restless that it is hard to sit still: 0 = Not at all Becoming easily annoyed or irritable: 0 = Not at all Feeling afraid as if something awful might happen: 0 = Not at all Total DAVIS-7 score (0-4 normal; 5-9 mild; 10-14 moderate; 15-21 severe): 0 Source: Developed by Drs. Eddie Maldonado, Isabel Castellanos, Jose Puga and colleagues, with an educational bree from [employer]. Review of Systems Const Denies chills, Reports fatigue, Denies fever(s) and Denies headache(s) ENT Denies dysphagia, Denies dizziness, Reports dry mouth (at times), Denies otalgia, Denies headache(s), Denies neck pain, Denies odynophagia, Reports tinnitus (on and off) and Denies sore throat Card Denies chest pain, Denies palpitations and Denies dyspnea Resp Denies cough and Denies dyspnea GI Denies abdominal pain, Denies constipation, Denies dysphagia, Denies heartburn, Denies diarrhea, Denies nausea, Denies odynophagia and Denies vomiting Reports as per HPI, Denies difficulty voiding, Denies nocturia and Denies dysuria Musc Denies back pain, Denies neck pain and Reports tingling (in both lower extremities) Skin/Breast Denies rash Neuro Denies dizziness, Denies headache(s), Reports tingling (in both lower extremities) and Reports paresthesias Endo Reports fatigue and Denies palpitations Physical exam (Primary Care) Vital Signs: Last Vital Signs Pulse 75 12/11/23 16:50 BP 122/84 12/11/23 16:50 Pulse Ox 99 12/11/23 16:50 Oxygen Delivery Method Room Air 12/11/23 16:50 BMI result Body Mass Index 35.5 Tobacco/Smoking Status: Tobacco use Status Tobacco use date assessed 12/11/23 12/11/23 16:56 Patient Tobacco Use Status Former Tobacco user 12/11/23 16:56 e-Cigarette/Vaping Use Never Used 12/11/23 16:56 PHQ-9: PHQ-9 Score PHQ-9: Total score 3 12/11/23 17:19 Depression Screening Interpretation: Positive Depression Screening Follow-up: Existing condition and In treatment Thrive Assessment: Date of Thrive Assessment Date Thrive assessed 12/11/23 12/11/23 16:56 Currently or been in a relationship where the following occur: no concerns reported Const General: no acute distress and alert HENMT Ears: TM's normal bilaterally and EAC's normal Throat: Yes posterior oropharynx normal and Yes tonsils normal (no TP congestion noted) Neck Neck: Yes no lymphadenopathy and Yes supple Thyroid: Thyroid normal Resp Auscultation: clear to auscultation bilaterally, no rales and no wheezes Cardio Rate: regular rate Rhythm: regular rhythm Heart sounds: no murmurs GI Palpation (GI): Soft to palpation and nontender Auscultation: normal bowel sounds General: Yes no CVA tenderness Back/Spine/Pelvis Back: no CVA tenderness Thoracic/Lumbar Spine: No lumbar spinal tenderness Skin Rashes: no rashes Extrem General: Yes no clubbing, cyanosis or edema Results Reviewed Results Reviewed: Laboratory Tests 12/10/23 10:26 WBC 6.2 Hgb 11.0 L Hct 32.5 L Plt Count 225 D Sodium 136 Potassium 4.5 Creatinine 1.71 H Estimated GFR 30 Fasting Glucose 99 Calcium 10.5 H AST 30 ALT 17 Triglycerides 153 H Cholesterol 208 H LDL Cholesterol, Calc 101 H HDL Cholesterol 77 Vitamin B12 242 25-OH Vitamin D Total 26.1 L TSH 30.79 H Free T4 0.77 Ur Specific Monon 1.015 Urine Protein Trace Urine Glucose (UA) Negative Urine Blood Negative Urine Nitrite Negative Assessment and Plan Assessment & Plan (1) Squamous cell carcinoma of nasopharynx: Code(s): C11.9 - Malignant neoplasm of nasopharynx, unspecified Plan: Patient completed her concurrent Cisplatin and radiation therapy for squamous cell carcinoma of the nasopharynx back in November 2020 and currently remains in remission Follow up with ENT and oncology as scheduled for continuing surveillance (2) Neuropathy: Code(s): G62.9 - Polyneuropathy, unspecified Plan: NCV & EMG done in April 2023 revealed (+) distal sensorimotor polyneuropathy, with axonal features. Continue Duloxetine 30 mg BID (3) Benign essential hypertension: Code(s): I10 - Essential (primary) hypertension Plan: Reinforced low sodium diet - goal is systolic BP of at least 130 mm or less Continue Amlodipine 10 mg QD and Atenolol 25 mg QD (4) Pure hypercholesterolemia: Code(s): E78.00 - Pure hypercholesterolemia, unspecified Plan: Results of her labs done yesterday reviewed and discussed with patient Reinforced low cholesterol diet Continue Rosuvastatin 5 mg QD Will recheck labs and fasting lipids in 4 months for follow up (5) Impaired fasting glucose: Code(s): R73.01 - Impaired fasting glucose Plan: HgbA1c was normal at 4.9% and 5.5% when last checked last year; FBS was normal at 99 mg/dl on her labs done yesterday Reinforced low calorie diet/exercise as tolerated. (6) Vitamin B12 deficiency: Code(s): E53.8 - Deficiency of other specified B group vitamins Plan: Continue Vitamin B12 1000 mcg QD (7) Hypothyroidism (acquired): Code(s): E03.9 - Hypothyroidism, unspecified Plan: Patient's TSH level was significantly elevated (>30) on her labs done yesterday Her TPO level was also significantly elevated, cionsistent with Bang's Will increase her Levothyroxine to 75 mcg QD Will recheck her TFTs in 4 months for follow up (8) Vitamin D deficiency: Code(s): E55.9 - Vitamin D deficiency, unspecified Plan: She is advised that her Vitamin D level is low on her recent labs Will start her on Vitamin D3 2000 units QD (9) Asthma: Comment: Mild. Needs to use Albuterol MDI 2 puffs q 4-6 Hrs only PRN Code(s): J45.909 - Unspecified asthma, uncomplicated Qualifiers: Asthma severity: unspecified severity Asthma persistence: unspecified Asthma complication type: uncomplicated Qualified Code(s): J45.909 - Unspecified asthma, uncomplicated Plan: Stable - has Albuterol HFA that he uses at 1 to 2 puffs 4 times a day as needed but has not needed to use this in a while now (10) Allergic rhinitis: Code(s): J30.9 - Allergic rhinitis, unspecified Qualifiers: Allergic rhinitis trigger: unspecified Allergic rhinitis seasonality: unspecified Qualified Code(s): J30.9 - Allergic rhinitis, unspecified Plan: Continue Loratadine 10 mg QD and Fluticasone nasal spray 50 mcg QD PRN (11) Recurrent urinary tract infection: Code(s): N39.0 - Urinary tract infection, site not specified Plan: Per request, will refer her to urology for further evaluation and management (12) Anxiety: Code(s): F41.9 - Anxiety disorder, unspecified Plan: Continue Lorazepam 0.5 mg BID PRN (13) Depression: Code(s): F32.9 - Major depressive disorder, single episode, unspecified Qualifiers: Depression Type: major depressive disorder Major depression recurrence: recurrent Active/Remission status: currently active Major depression episode severity: unspecified Qualified Code(s): F33.9 - Major depressive disorder, recurrent, unspecified Plan: Continue Duloxetine 30 mg BID and Mirtazapine 7.5 mg Q HS Follow up with psychiatry as scheduled (14) Obesity (BMI 30-39.9): Code(s): E66.9 - Obesity, unspecified Plan: Reinforced diet/exercise as tolerated/lose weight Plan Follow up in 4 months Orders: Orders Comprehensive [place]. Panel Fast 4 Months E78.00 - Pure hypercholesterolemia, unspecified Free T4 (Free Thyroxine) 4 Months E03.9 - Hypothyroidism, unspecified Lipid Panel 4 Months E78.00 - Pure hypercholesterolemia, unspecified Vitamin B12 and Folate 4 Months E53.8 - Deficiency of other specified B group vitamins Vitamin D 25-OH Total 4 Months E55.9 - Vitamin D deficiency, unspecified UA CC w/rflx Micro + Cult 4 Months R30.0 - Dysuria Complete Blood Count Auto Diff 4 Months D64.9 - Anemia, unspecified Thyroid Stimulating Hormone 4 Months E03.9 - Hypothyroidism, unspecified Referrals Urology Referral N39.0 - Urinary tract infection, site not specified Medications: New cholecalciferol (vitamin D3) 50 mcg PO DAILY 90 caps 3RF 90 days E55.9 - Vitamin D deficiency, unspecified Changed From levothyroxine 50 mcg PO DAILY To levothyroxine 75 mcg PO DAILY 90 tabs 1RF 90 days From cyanocobalamin (vitamin B-12) 1,000 mcg PO DAILY 90 days 90 tabs 3RF To cyanocobalamin (vitamin B-12) 1,000 mcg PO DAILY 90 tabs 3RF 90 days Coding Level of Care Code Est Pt Level 4 (35458) Diagnoses Squamous cell carcinoma of nasopharynx C11.9 Neuropathy G62.9 Benign essential hypertension I10 Pure hypercholesterolemia E78.00 Impaired fasting glucose R73.01 Vitamin B12 deficiency E53.8 Hypothyroidism (acquired) E03.9 Vitamin D deficiency E55.9 Uncomplicated asthma, unspecified asthma severity, unspecified whether persistent J45.909 Asthma severity: unspecified severity Asthma persistence: unspecified Asthma complication type: uncomplicated Allergic rhinitis, unspecified seasonality, unspecified trigger J30.9 Allergic rhinitis trigger: unspecified Allergic rhinitis seasonality: unspecified Recurrent urinary tract infection N39.0 Anxiety F41.9 Episode of recurrent major depressive disorder, unspecified depression episode severity F33.9 Depression Type: major depressive disorder Major depression recurrence: recurrent Active/Remission status: currently active Major depression episode severity: unspecified Obesity (BMI 30-39.9) E66.9
== END 2023-12-11 17:28 | disposition home or self-care (01) ==
PROVIDERS: PCP Internal Medicine; Visit Provider Internal Medicine
DX: N39.0 Urinary tract infection, site not specified (principal); C11.9 Malignant neoplasm of nasopharynx, unspecified; G62.9 Polyneuropathy, unspecified; I10 Essential (primary) hypertension; E78.00 Pure hypercholesterolemia, unspecified; R73.01 Impaired fasting glucose; E53.8 Deficiency of other specified B group vitamins; E03.9 Hypothyroidism, unspecified; E55.9 Vitamin D deficiency, unspecified; J45.909 Unspecified asthma, uncomplicated; J30.9 Allergic rhinitis, unspecified; F41.9 Anxiety disorder, unspecified
CPT/HCPCS: 99214

== ENCOUNTER 2024-01-18 08:25 | Outpatient (REF) | payer MEDICARE, MEDICAID, SELFPAY ==
--- NOTE | ~2024-01-18 | MM_ITS ---
EXAMINATION: MM DIAGNOSTIC DIGITAL BREAST TOMOSYNTHESIS, BILATERAL US BREAST LIMITED, LEFT MAMMOGRAPHY: CLINICAL INFORMATION: 63-year-old female complaining of redness and tenderness left breast inferomedial aspect suspicious for mastitis. Patient just completed antibiotic therapy with reported significant improvement in symptoms and appearance. Patient due for bilateral screening. Patient has known chronic kidney disease. Patient has history of head and neck cancer. COMPARISON: Mammography: 09/08/2021, 12/16/2014, 03/05/2012 TECHNIQUE: Digital breast tomosynthesis is performed in both the craniocaudal and mediolateral oblique views along with computer-aided detection (CAD). Synthesized 2D images are generated from the tomosynthesis. FINDINGS: There are scattered areas of fibroglandular density (ACR BI-RADS breast composition Category b). There is mild skin thickening of the left breast anteriorly, inferiorly, and medially. There is minimal thickening of the skin in the medial inferior right breast. This may relate to fluid overload with mild asymmetric skin edema. This could also relate to infection in the left breast, superimposed upon cutaneous edema. Otherwise, there are no suspicious masses, suspicious grouped calcifications, or areas of architectural distortion in either breast. The parenchymal pattern is stable from prior exams. There is no axillary abnormality. ULTRASOUND: CLINICAL INFORMATION: 63-year-old female complaining of redness and tenderness left breast inferomedial aspect suspicious for mastitis. Patient just completed antibiotic therapy with reported improvement in symptoms and appearance COMPARISON: None TECHNIQUE: Targeted sonographic evaluation left breast was performed using a high frequency linear transducer. Left breast was scanned from the 3:00 to the 9:00 axis in the region of skin redness and symptomatology which has now improved. Selected archived documentation. FINDINGS: LEFT BREAST: There is a mixture of fatty and fibroglandular tissue. No suspicious mass is seen. There is no pathologic acoustic shadowing. There is no abscess or edema within the soft tissues planes. There is mild residual skin thickening in this region. MM/MM tomosynthesis diagnostic BI IMPRESSION: -There are no findings in either breast suspicious for malignancy. -Improved mastitis involving the inferomedial left breast. Mild residual skin thickening is present, which may reflect residua of recent mastitis versus mild subcutaneous edema from known kidney disease and fluid overload. There is minimal skin thickening mammographically involving the right breast. -No evidence of subdermal abscess or edema in the soft tissue planes. -Recommend continued clinical management of left breast symptoms. -Otherwise, recommend this patient resume routine annual screening in one year. OVERALL ASSESSMENT: Mammography: BI-RADS 2 - Benign Findings Ultrasound: BI-RADS 2 - Benign Findings RECOMMENDATION: 1. Patient should be managed based on the clinical impression. 2. Otherwise, routine annual screening mammography. Results were provided to the patient at time of visit by the technologist. This patient's information was entered into a reminder system with a target due date for their next mammogram.
== END 2024-01-18 08:26 | disposition home or self-care (01) ==
LOC: HO.MAMMO 08:25
PROVIDERS: PCP Internal Medicine; Visit Provider Internal Medicine
DX: N64.89 Other specified disorders of breast (principal)
CPT/HCPCS: 77062; 77066

== ENCOUNTER → 2024-01-18 08:45 | Outpatient (BNV) | payer MEDICARE, MEDICAID, SELFPAY | PROVIDERS: PCP Internal Medicine; Visit Provider Radiology Diagnostic Radiology | DX: N64.4 Mastodynia (principal) | CPT/HCPCS: 76641; 77066; G0279 ==

== ENCOUNTER 2024-01-18 09:15 | Outpatient (REF) | payer MEDICARE, MEDICAID, SELFPAY ==
[2024-01-18 11:29] LABS: Appearance Urine Clear; Color Urine Dark Yellow; Glucose Urine UA Negative (Negative); Leukocyte Esterase Urine Small (1+) (Negative); Nitrite Urine Negative (Negative); PH 5.5 (5.0-9.0); Specific Gravity - Urine 1.015 (1.005-1.025); UMIC TRIGGER UACC YES; Urine Blood Negative (Negative); Urine Ketones Trace mg/dL (Negative); Urine Protein 30 (1+) mg/dL (Neg-Trace)
[2024-01-18 11:59] LABS: Bacteria Urine Trace (None Seen); RBC Urine 0-2 /HPF (0-2); Squamous Epithelial Cell Urine >20 /HPF (0-2); UACC Culture Trigger YES; WBC Urine 0-5 /HPF (0-5)
[2024-01-18 13:30] LABS: MANUAL DIFF FLAG NO
[2024-01-18 13:38] LABS: Basophils Absolute Auto 0.1 X10*3/uL (0.0-0.2); Basophils Percent Auto 0.5 % (0-2); Eosinophils Absolute Auto 0.2 X10*3/uL (0.0-0.4); Eosinophils Percent Auto 1.9 % (0-4); Hematocrit 30.3 % (37.0-47.0); Imm Gran Abs Auto 0.08 X10*3/uL (0.00-0.03); Imm Gran Pct Auto 0.8 % (0.0-0.4); Lymphocytes Absolute Auto 1.5 X10*3/uL (1.2-4.9); Mean Corpuscular Hemoglobin 34.4 pg (27.0-33.0); Mean Corpuscular Volume 104.1 fL (80.0-98.0); Mean Platelet Volume 9.3 fL (9.4-12.3); Monocytes Absolute Auto 0.7 X10*3/uL (0.1-1.2); NRBC Pct Auto 0.2 /100WBC (0.0-0.2); Neutrophils Absolute Auto 7.3 x10*3/uL (2.0-8.3); Neutrophils Percent Auto 74.8 % (45-73); Platelet Count 370 X10*3/uL (160-400); Red Blood Count 2.91 X10*6/uL (4.20-5.50); Red Cell Distribution Width 13.1 % (11.0-16.0); White Blood Count 9.7 X10*3/uL (4.8-10.8)
[2024-01-18 14:09] LABS: Alanine Aminotransferase 12 U/L (0-31); Albumin Level 4.5 g/dL (3.5-5.0); Alkaline Phosphatase 77 U/L (39-117); Anion Gap 18 (12-20); Aspartate Amino Transferase 22 U/L (5-31); Bilirubin Total 0.5 mg/dL (0.0-1.0); Blood Urea Nitrogen 18 mg/dL (9-16); Calcium 10.4 mg/dL (8.4-10.2); Carbon Dioxide 26 mmol/L (22-29); Chloride 95 mmol/L (96-108); Estimated Glomerular Filt Rate 25; Glucose Random 112 mg/dL (60-115); Potassium 4.1 mmol/L (3.3-5.1); Sodium 135 mmol/L (135-145)
[2024-01-18 14:16] LABS: TSH reflex Free T4 1.75 uIU/mL (0.32-4.0)
== END 2024-01-18 09:16 | disposition home or self-care (01) ==
LOC: HO.10HDLNP 09:15
PROVIDERS: Nurse Practitioner Family; Visit Provider Internal Medicine
DX: E03.9 Hypothyroidism, unspecified (principal); E87.1 Hypo-osmolality and hyponatremia; N17.9 Acute kidney failure, unspecified; R30.0 Dysuria
CPT/HCPCS: 80053; 81001; 84443; 85025; 87086

== ENCOUNTER 2024-01-18 10:55 | Outpatient (AMB) | payer MEDICARE, MEDICAID, SELFPAY ==
--- NOTE | 2024-01-18 10:57 | MHC.PC.OV ---
Vital Signs 01/18/24 10:59 Height 5 ft 2 in Weight 193 lb BMI 35.3 BP 106/72 Blood Pressure Location Lt brachial Position Sitting Pulse 109 H Pulse Source Pulse Oximeter Pulse Oximetry (%) 96 Oxygen Delivery Method Room Air Intake Visit Reasons: kidney disease [facility] 01/04 Intake Note: Patient is here for hospital discharge follow up. Patient was discharged from [facility] on 01/05/24. Lodging Facilities Attendant Required: No Artists' Booking Representative: Not Required per policy Accompanied by: Self / Same As Patient Allergies No Known Allergies Allergy (Verified 01/18/24 10:59) Tobacco use date assessed: 01/18/24 Fall risk assessment: No Falls in past year Last assessed Fall Risk: 01/18/24 Dental Screening Dental Screen Date: 12/11/23 HPI HPI Comments History of Present Illness Details 63 y/o female patient who presents to the clinic for HDF from [facility]. Pt was admitted @ [facility] for Left Breast pain, and Breast skin changes. DOS: 01/03/24 and DOD: 01/05/2024. In the hospital Pt was found to be Hyponatremic, Hypothyroid, KELY and Mastitis left breast. Hospital recommendations: - Outpatient Liver/Kidney US to check for chronic Kidney disease and any liver abnormalities causing Hyponatremia. - Referral to Building Components Designer outpatient to check for CKD (Pt was seen by LISBETHNE while in the hospital). - Repeat Renal function tests outpatient (Pt states giving urine sample at the lab today) - U/S breast including Dx Mammo (Pt had Lt Breast U/S this morning). - Repeat Thyroid levels outpatient 3-6 weeks (Pt currently taking Levothy 75 mcg) [facility] Medical History (Updated 01/14/24 @ 01:50 by Jakob Reynolds MD) Vitamin D deficiency Hypothyroidism (acquired) Vitamin B12 deficiency Obesity (BMI 30-39.9) Depression Allergic rhinitis Impaired fasting glucose Pure hypercholesterolemia Benign essential hypertension Squamous cell carcinoma of nasopharynx Pre-op examination Hypertension Pre-op examination Asthma Recurrent sinus infections Neck mass Anxiety Osteoarthritis of hand Dyspnea Cervical adenopathy MELLY (obstructive sleep apnea) Asthma Surgical History No pertinent past surgical history Family History Father Hypertension Cardiovascular disease Mother Unknown family medical history Social History Housing: House Alcohol intake: former Patient Tobacco Use Status: Former Tobacco user Years Smoked: 44 years but stopped for years at a time e-Cigarette/Vaping Use: Never Used Second Hand Smoke Exposure: No service: No Current occupational status: unemployed and disabled Cognitive needs: No Hearing needs: No Vision needs: Yes (glasses) Questionnaire Thrive Questionnaire Date Thrive assessed: 12/11/23 DAVIS-7 AMB Questionnaire DAVIS-7 Date DAVIS - 7 assessed: 12/11/23 Source: Developed by Drs. Eddie Maldonado, Isabel Castellanos, Jose Puga and colleagues, with an educational bree from [address]. Review of Systems Const All systems reviewed & are unremarkable except as noted in HPI and below Physical exam (Primary Care) Vital Signs: Last Vital Signs Pulse 109 H 01/18/24 10:59 BP 106/72 01/18/24 10:59 Pulse Ox 96 01/18/24 10:59 Oxygen Delivery Method Room Air 01/18/24 10:59 BMI result Body Mass Index 35.3 Tobacco/Smoking Status: Tobacco use Status Tobacco use date assessed 01/18/24 01/18/24 11:06 Patient Tobacco Use Status Former Tobacco user 01/18/24 11:06 e-Cigarette/Vaping Use Never Used 01/18/24 11:06 Thrive Assessment: Date of Thrive Assessment Date Thrive assessed 12/11/23 01/18/24 11:06 Const General: comfortable and no acute distress Nutritional Appearance: obese Orientation/consciousness: patient oriented x3 Chest Breast/axilla inspection: normal inspection of the breasts and normal inspection of the axillae Breast/axilla palpation: normal palpation of the axillae, no axillary lymphadenopathy and other (Mild tenderness left breast. Normal color of skin, no drainage, no redness) Resp Effort & Inspection: normal respiratory effort and able to speak in complete sentences Auscultation: no crackles, no rales, no rhonchi and no wheezes Cardio Heart sounds: S1 normal heart sound present and S2 normal heart sound present Neuro General: patient oriented x3, gait normal and moves all extremities Psych Speech and movement: Normal speech and movement present Vital Signs: Last Vital Signs Pulse 109 H 01/18/24 10:59 BP 106/72 01/18/24 10:59 Pulse Ox 96 01/18/24 10:59 Oxygen Delivery Method Room Air 01/18/24 10:59 BMI result Body Mass Index 35.3 Const General: comfortable and no acute distress Nutritional Appearance: obese Orientation/consciousness: patient oriented x3 Chest Breast/axilla inspection: normal inspection of the breasts and normal inspection of the axillae Breast/axilla palpation: normal palpation of the axillae, no axillary lymphadenopathy and other (Mild tenderness left breast. Normal color of skin, no drainage, no redness) Resp Effort & Inspection: normal respiratory effort and able to speak in complete sentences Auscultation: no crackles, no rales, no rhonchi and no wheezes Cardio Heart sounds: S1 normal heart sound present and S2 normal heart sound present Neuro General: patient oriented x3, gait normal and moves all extremities Psych Speech and movement: Normal speech and movement present Assessment and Plan Assessment & Plan (1) Acute hyponatremia: Code(s): E87.1 - Hypo-osmolality and hyponatremia Plan: Will continue to monitor with repeat Labs (2) Acute kidney injury: Code(s): N17.9 - Acute kidney failure, unspecified Plan: Repeat Renal labs - Pt gave urine sample this morning Will consult with PCP to see if Nephrolo referral is required at this time. (3) Hypothyroidism (acquired): Code(s): E03.9 - Hypothyroidism, unspecified Plan: Ordered TSH today Continue on Levo 75 mcg as prescribed F/U with PCP PRN (4) Mastodynia: Code(s): N64.4 - Mastodynia Plan: Mild tenderness left breast. Advised Ibuprofen. Normal color and texture Marcelo breasts Had U/S left breast this morning Mastitis resolved. Orders: Orders Complete Blood Count Auto Diff Today E87.1 - Hypo-osmolality and hyponatremia, N17.9 - Acute kidney failure, unspecified Comprehensive Met. Panel Today E87.1 - Hypo-osmolality and hyponatremia, N17.9 - Acute kidney failure, unspecified TSH reflex Free T4 Today E03.9 - Hypothyroidism, unspecified Coding Level of Care Code Est Pt Level 4 (11357) Diagnoses Acute hyponatremia E87.1 Acute kidney injury N17.9 Hypothyroidism (acquired) E03.9 Mastodynia N64.4 Comment Spent 20 minutes reviewing hospital discharge notes and labs.
[2024-01-18 10:59] VITALS: BP 106/72; PULSE 109; O2SAT 96; BMI 35.3
== END 2024-01-18 11:32 | disposition home or self-care (01) ==
PROVIDERS: PCP Internal Medicine; Visit Provider Nurse Practitioner Family
DX: E87.1 Hypo-osmolality and hyponatremia (principal); N17.9 Acute kidney failure, unspecified; E03.9 Hypothyroidism, unspecified; N64.4 Mastodynia
CPT/HCPCS: 99214

== ENCOUNTER → 2024-01-22 13:00 | Outpatient (BNV) | payer MEDICARE, MEDICAID, SELFPAY | PROVIDERS: PCP Internal Medicine; Visit Provider Radiology Diagnostic Radiology | DX: N61.0 Mastitis without abscess (principal) | CPT/HCPCS: 76642; 77066; G0279 ==

== ENCOUNTER 2024-01-22 13:04 | Outpatient (REF) | payer MEDICARE, MEDICAID, SELFPAY ==
--- NOTE | ~2024-01-22 | US_ITS ---
EXAMINATION: MM DIAGNOSTIC DIGITAL BREAST TOMOSYNTHESIS, BILATERAL US BREAST LIMITED, LEFT MAMMOGRAPHY: CLINICAL INFORMATION: 63-year-old female complaining of redness and tenderness left breast inferomedial aspect suspicious for mastitis. Patient just completed antibiotic therapy with reported significant improvement in symptoms and appearance. Patient due for bilateral screening. Patient has known chronic kidney disease. Patient has history of head and neck cancer. COMPARISON: Mammography: 09/08/2021, 12/16/2014, 03/05/2012 TECHNIQUE: Digital breast tomosynthesis is performed in both the craniocaudal and mediolateral oblique views along with computer-aided detection (CAD). Synthesized 2D images are generated from the tomosynthesis. FINDINGS: There are scattered areas of fibroglandular density (ACR BI-RADS breast composition Category b). There is mild skin thickening of the left breast anteriorly, inferiorly, and medially. There is minimal thickening of the skin in the medial inferior right breast. This may relate to fluid overload with mild asymmetric skin edema. This could also relate to infection in the left breast, superimposed upon cutaneous edema. Otherwise, there are no suspicious masses, suspicious grouped calcifications, or areas of architectural distortion in either breast. The parenchymal pattern is stable from prior exams. There is no axillary abnormality. ULTRASOUND: CLINICAL INFORMATION: 63-year-old female complaining of redness and tenderness left breast inferomedial aspect suspicious for mastitis. Patient just completed antibiotic therapy with reported improvement in symptoms and appearance COMPARISON: None TECHNIQUE: Targeted sonographic evaluation left breast was performed using a high frequency linear transducer. Left breast was scanned from the 3:00 to the 9:00 axis in the region of skin redness and symptomatology which has now improved. Selected archived documentation. FINDINGS: LEFT BREAST: There is a mixture of fatty and fibroglandular tissue. No suspicious mass is seen. There is no pathologic acoustic shadowing. There is no abscess or edema within the soft tissues planes. There is mild residual skin thickening in this region. US/US breast LT limited mamm only IMPRESSION: -There are no findings in either breast suspicious for malignancy. -Improved mastitis involving the inferomedial left breast. Mild residual skin thickening is present, which may reflect residua of recent mastitis versus mild subcutaneous edema from known kidney disease and fluid overload. There is minimal skin thickening mammographically involving the right breast. -No evidence of subdermal abscess or edema in the soft tissue planes. -Recommend continued clinical management of left breast symptoms. -Otherwise, recommend this patient resume routine annual screening in one year. OVERALL ASSESSMENT: Mammography: BI-RADS 2 - Benign Findings Ultrasound: BI-RADS 2 - Benign Findings RECOMMENDATION: 1. Patient should be managed based on the clinical impression. 2. Otherwise, routine annual screening mammography. Results were provided to the patient at time of visit by the technologist. This patient's information was entered into a reminder system with a target due date for their next mammogram.
== END 2024-01-22 13:05 | disposition home or self-care (01) ==
LOC: HO.MAMMO 13:04
PROVIDERS: PCP Internal Medicine; Visit Provider Internal Medicine
DX: N64.89 Other specified disorders of breast (principal)
CPT/HCPCS: 76642

== ENCOUNTER 2024-01-25 15:07 | Outpatient (REF) | payer MEDICARE, MEDICAID, SELFPAY ==
[2024-01-25 16:51] LABS: Urine Cytology See Pathology rpt
== END 2024-01-25 15:08 | disposition home or self-care (01) ==
LOC: HO.LNP 15:07
PROVIDERS: PCP Internal Medicine; Visit Provider Urology
DX: N39.0 Urinary tract infection, site not specified (principal)
CPT/HCPCS: 51798; 81003; 87086; 87088; 88112; 99202

== ENCOUNTER 2024-01-25 15:07 | Outpatient (AMB) | payer MEDICARE, MEDICAID, SELFPAY ==
--- NOTE | 2024-01-25 15:10 | MHC.OFFVIS ---
Intake Visit Reasons: Urinary tract infection Intake Note: New Patient presents for initial visit for urinary tract infection Urology Medications: none Blood Thinner: none PVR: 0ml's Automation/Controls Manager Required: No Accompanied by: Self / Same As Patient Allergies environmental allergies Allergy (Unknown, Verified 02/06/24 13:19) Unknown HPI Comments Details: 01/25/2024--Vivian is a pleasant 63-year-old woman with a history of CKD, hypertension hyperlipidemia. She presents for evaluation due to recurrent UTI. She is followed by nephrology. She has a pending renal ultrasound. Review microbiology: Urine culture 12/10/2023 greater than 100,000 colonies mixed bacteria, urine culture 01/18/2024 was than 10,000 colonies. We will send surveillance urine culture today follow-up office cystoscopy. [facility] Medical History Chronic kidney disease, stage 4 (severe) Vitamin D deficiency Hypothyroidism (acquired) Vitamin B12 deficiency Obesity (BMI 30-39.9) Depression Allergic rhinitis Impaired fasting glucose Pure hypercholesterolemia Benign essential hypertension Squamous cell carcinoma of nasopharynx Pre-op examination Hypertension Pre-op examination Asthma Recurrent sinus infections Neck mass Anxiety Osteoarthritis of hand Dyspnea Cervical adenopathy MELLY (obstructive sleep apnea) Asthma Surgical History No pertinent past surgical history Family History Father Hypertension Cardiovascular disease Mother Unknown family medical history Social History Housing: House Alcohol intake: former Patient Tobacco Use Status: Former Tobacco user Years Smoked: 44 years but stopped for years at a time e-Cigarette/Vaping Use: Never Used Second Hand Smoke Exposure: No service: No Current occupational status: unemployed and disabled Cognitive needs: No Hearing needs: No Vision needs: Yes (glasses) Review of Systems Const All systems reviewed & are unremarkable except as noted in HPI and below Reports no additional complaints Eyes Reports no additional complaints ENT Reports no additional complaints Card Reports no additional complaints Resp Reports no additional complaints GI Reports no additional complaints Reports as per HPI Musc Reports no additional complaints Skin/Breast Reports system reviewed and no additional complaints, except as documented Neuro Reports no additional complaints Psych Reports no additional complaints Endo Reports no additional complaints Manuel/Lymph Reports no additional complaints Aller/Immun Reports no additional complaints Physical Exam Const General: cooperative, healthy appearing and no acute distress Orientation/consciousness: patient oriented x3 HEENT Head: Yes normal to inspection, Yes normocephalic and Yes atraumatic Eyes Conjunctivae: conjunctivae normal Neck Neck: Yes normal visual inspection and Yes trachea midline Chest Chest palpation & inspection: normal inspection of the chest Resp Effort & Inspection: normal respiratory effort Cardio Jugular venous distension: no JVD GI Inspection: Yes normal to inspection Neuro General: patient oriented x3 Psych Appearance: grossly normal Office Procedures Post Void Residual Post Residual Void Post Void Residual (PVR): 0 [id number] Void Residual by ultrasound Results AMB Urinalysis, Automated UA Leukoctes 15 Tiburcio/uL Last Edit by [facility] on 01/25/24 15:37 UA Nitrite Negative Last Edit by [facility] on 01/25/24 15:37 UA Urobilinogen 0.2 mg/dL Last Edit by [facility] on 01/25/24 15:37 UA Protein 15 mg/dL Last Edit by [facility] on 01/25/24 15:37 UA pH 6.0 Last Edit by [facility] on 01/25/24 15:37 UA Blood 0 Nikhil/uL Last Edit by [facility] on 01/25/24 15:37 UA Specific Bastian 1.025 Last Edit by [facility] on 01/25/24 15:37 UA Ketone Negative Last Edit by [facility] on 01/25/24 15:37 UA Bilirubin 1 mg/dL Last Edit by [facility] on 01/25/24 15:37 UA Glucose 0 mg/dL Last Edit by [facility] on 01/25/24 15:37 Results Reviewed Results Reviewed: Laboratory Last Values Urine pH (Auto) 6.0 01/25/24 15:36 Specific Bastian (Auto) 1.025 01/25/24 15:36 Urine Protein (Auto) 15 mg/dL 01/25/24 15:36 Glucose (UA)(Auto) 0 mg/dL 01/25/24 15:36 Urine Ketones (Auto) Negative 01/25/24 15:36 Urine Blood (Auto) 0 Nikhil/uL 01/25/24 15:36 Urine Nitrite (Auto) Negative 01/25/24 15:36 Urine Bilirubin (Auto) 1 mg/dL 01/25/24 15:36 Urine Urobilinogen (Auto) 0.2 mg/dL 01/25/24 15:36 Leukocyte Esterase (Auto) 15 Tiburcio/uL 01/25/24 15:36 Assessment & Plan Assessment & Plan (1) CKD (chronic kidney disease): Code(s): N18.9 - Chronic kidney disease, unspecified Category: Medical (2) Recurrent urinary tract infection: Code(s): N39.0 - Urinary tract infection, site not specified Category: Medical Plan Renal US is pending. Schedule fu cysto Orders: Orders AMB Urinalysis Automated 01/25/24 Z13.9 - Encounter for screening, unspecified AMB Post Void Residual by ultrasound 01/25/24 N39.0 - Urinary tract infection, site not specified Urine Culture 01/25/24 N39.0 - Urinary tract infection, site not specified Urine Cytology 01/25/24 N39.0 - Urinary tract infection, site not specified Patient Instructions: The patient had an opportunity to ask questions regarding treatment plan. The patient expressed understanding and agreement with the above treatment plan. The patient is aware they should contact our office by phone for worsening of their current condition or the appearance of new symptoms. Compliance is encouraged with any medications and followup testing that is ordered. It is a privilege to be allowed the opportunity to participate in the urologic care of your patient. If you have any questions or concerns regarding treatment for the above conditions please do not hesitate to contact me. The office telephone contact is [phone]. This note is constructed in part using voice recognition software. While every effort has been made to ensure accuracy beef farmer errors may have been included. Yours sincerely, Thom Shaikh MD Coding Level of Care Code New Pt Level 4 (80650) Diagnoses CKD (chronic kidney disease) N18.9 Recurrent urinary tract infection N39.0 CPT Codes Post Residual Void - PVR CPT Code: 31762-[id number] Void Residual by ultrasound ([id number])
== END 2024-01-25 16:05 | disposition home or self-care (01) ==
PROVIDERS: PCP Internal Medicine; Visit Provider Urology
DX: N18.9 Chronic kidney disease, unspecified (principal); N39.0 Urinary tract infection, site not specified
CPT/HCPCS: 99204

== ENCOUNTER 2024-01-28 09:25 | Outpatient (REF) | payer MEDICARE, MEDICAID, SELFPAY ==
--- NOTE | ~2024-01-28 | US_ITS ---
EXAMINATION: US RETROPERITONEAL LIMITED (RENAL ONLY) CLINICAL INFORMATION: Chronic kidney disease, stage 4 (severe). COMPARISON: None available. TECHNIQUE: Real-time imaging of the kidneys. FINDINGS: RIGHT KIDNEY: 10.0 x 4.0 x 5.1 cm (SAG x AP x TRV). The kidney is normal in size, contour, and echogenicity. Mild atrophy. No calculi or focal parenchymal lesions. No hydronephrosis. LEFT KIDNEY: 10.7 x 4.4 x 4.8 cm (SAG x AP x TRV). The kidney is normal in size, contour, and echogenicity. Mild atrophy. No calculi or focal parenchymal lesions. No hydronephrosis. US/US renal BI IMPRESSION: No obstructive uropathy. Symmetric bilateral cortical renal atrophy.
== END 2024-01-28 09:26 | disposition home or self-care (01) ==
LOC: HO.US 09:25
PROVIDERS: PCP Internal Medicine; Visit Provider Internal Medicine
DX: N18.4 Chronic kidney disease, stage 4 (severe) (principal)
CPT/HCPCS: 76775

== ENCOUNTER 2024-02-06 13:13 | Outpatient (AMB) | payer MEDICARE, MEDICAID, SELFPAY ==
[2024-02-06 13:16] VITALS: BP 90/62; PULSE 101; O2SAT 96; BMI 34.6
--- NOTE | 2024-02-06 13:16 | HO.NEPHOV_ITS ---
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 Accompanied by: Self / Same As Patient Allergies environmental allergies Allergy (Unknown, Verified 02/06/24 13:19) Unknown Medication List - Last Reconciled 02/06/24 by Mic Richardson MD cholecalciferol (vitamin D3) 50 mcg PO DAILY 90 days cyanocobalamin (vitamin B-12) 1,000 mcg PO DAILY 90 days fluticasone propionate 50 mcg/actuation 2 sprays intranasal DAILY PRN 30 days levothyroxine 75 mcg PO DAILY 90 days loratadine 10 mg PO DAILY lorazepam 0.5 mg PO BID PRN 30 days rosuvastatin 5 mg PO DAILY sertraline 50 mg PO DAILY sulfamethoxazole-trimethoprim 800-160 mg (Bactrim DS) 1 tab PO BID 5 days HPI Comments Details: Vivian is a pleasant 63-year-old woman with a history of kidney cancer status p ost chemotherapy and radiation 2 years ago along with a history of hypertension hyperlipidemia. Next she was recently in the hospital for mastodynia. At that time she was hypotensive and she was also found to have acute kidney injury with a creatinine of 2.8. With IV hydration serum creatinine improved and she has been discharge for outpatient management. She had mild hyponatremia with serum sodium 132 over admission which resolved promptly. Corresponding urine sodium was less than 20 mg/dL Prior to hospitalization she was on amlodipine and atenolol. This was discontinued due to hypotension. Currently she is on on any antihypertensive medication [facility] Medical History Chronic kidney disease, stage 4 (severe) Vitamin D deficiency Hypothyroidism (acquired) Vitamin B12 deficiency Obesity (BMI 30-39.9) Depression Allergic rhinitis Impaired fasting glucose Pure hypercholesterolemia Benign essential hypertension Squamous cell carcinoma of nasopharynx Pre-op examination Hypertension Pre-op examination Asthma Recurrent sinus infections Neck mass Anxiety Osteoarthritis of hand Dyspnea Cervical adenopathy MELLY (obstructive sleep apnea) Asthma Surgical History No pertinent past surgical history Family History Father Hypertension Cardiovascular disease Mother Unknown family medical history Social History Housing: House Alcohol intake: former Patient Tobacco Use Status: Former Tobacco user Years Smoked: 44 years but stopped for years at a time e-Cigarette/Vaping Use: Never Used Second Hand Smoke Exposure: No service: No Current occupational status: unemployed and disabled Cognitive needs: No Hearing needs: No Vision needs: Yes (glasses) Review of Systems Const Denies fever(s) and Denies weight loss Card Denies chest pain Resp Denies cough and Denies hemoptysis GI Denies abdominal pain, Denies diarrhea and Denies nausea Musc Denies back pain Neuro Denies focal weakness Physical Exam Vital Signs: Last Vital Signs Pulse 101 H 02/06/24 13:16 BP 90/62 02/06/24 13:16 Pulse Ox 96 02/06/24 13:16 Oxygen Delivery Method Room Air 02/06/24 13:16 BMI result Body Mass Index 34.6 Results Reviewed Nephrology Results: Hgb 10.0 g/dl (12.0-16.0) L 01/18/24 WBC 9.7 X10*3/uL (4.8-10.8) 01/18/24 Plt Count 370 X10*3/uL (160-400) 01/18/24 Sodium 135 mmol/L (135-145) 01/18/24 Potassium 4.1 mmol/L (3.3-5.1) 01/18/24 Chloride 95 mmol/L (96-108) L 01/18/24 Carbon Dioxide 26 mmol/L (22-29) 01/18/24 BUN 18 mg/dL (9-16) H 01/18/24 Creatinine 2.04 mg/dL (0.5-1.4) H 01/18/24 Calcium 10.4 mg/dL (8.4-10.2) H 01/18/24 Urine Protein 30 (1+) mg/dL (Neg-Trace) H 01/18/24 Renal US 01/28/24 Assessment & Plan Assessment & Plan (1) CKD (chronic kidney disease): Code(s): N18.9 - Chronic kidney disease, unspecified Category: Medical Plan Vivian has chronic kidney disease in the setting of hypertension he had any cancer. Baseline creatinine was 1.2 mg/dL back in 2021. She has sustained acute kidney injury in 12/27/2023 most likely due to hypoperfusion. Urine sodium was less than 10 suggestive of hypoperfusion. She also had an mild hypovolemic hyponatremia. With IV hydration serum creatinine improved and recent creatinine was 1.9 mg/dL. Urine sediments are rather bland no reason to believe she has any active glomerular nephritis or interstitial disease. Renal ultrasonogram from 01/26/2024 was unremarkable. Final results are pending. Goal is to slow the progression of renal disease Continue overt nephrotoxic agents Optimize blood pressure and avoid hypotension. Repeat renal function today to see progress Of note recently finished a course of Bactrim which could contribute to elevation serum creatinine and hyperkalemia. Orders: Orders AMB 24 HR B/P Monitor PLACEMENT Today Mic Richardson MD I10 - Essential (primary) hypertension Complete Blood Count Auto Diff Today Mic Richardson MD N18.4 - Chronic kidney disease, stage 4 (severe) Comprehensive Met. Panel Today Mic Richardson MD N18.4 - Chronic ki dney disease, stage 4 (severe) Parathyroid Hormone Intact Today Mic Richardson MD N18.4 - Chronic kidney disease, stage 4 (severe) Medications: Changed From sertraline 100 mg PO DAILY 90 days 90 tabs 1RF To sertraline 50 mg PO DAILY Jakob Reynolds MD Coding Level of Care Code New Pt Level 4 (67890) Diagnoses CKD (chronic kidney disease) N18.9
== END 2024-02-06 14:50 | disposition home or self-care (01) ==
PROVIDERS: PCP Internal Medicine; Referring Provider Internal Medicine; Visit Provider Internal Medicine Hypertension Specialist
DX: N18.9 Chronic kidney disease, unspecified (principal)
CPT/HCPCS: 99204

== ENCOUNTER → 2024-02-06 13:13 | Outpatient (BNVA) | payer MEDICARE, MEDICAID, SELFPAY | PROVIDERS: PCP Internal Medicine; Referring Provider Internal Medicine; Visit Provider Internal Medicine Hypertension Specialist ==

== ENCOUNTER 2024-02-06 13:45 | Outpatient (REF) | payer MEDICARE, MEDICAID, SELFPAY ==
[2024-02-06 17:54] LABS: MANUAL DIFF FLAG NO
[2024-02-06 17:58] LABS: Basophils Percent Auto 0.6 % (0-2); Eosinophils Absolute Auto 0.2 X10*3/uL (0.0-0.4); Eosinophils Percent Auto 2.5 % (0-4); Hematocrit 28.4 % (37.0-47.0); Hemoglobin 9.6 g/dl (12.0-16.0); Imm Gran Abs Auto 0.04 X10*3/uL (0.00-0.03); Imm Gran Pct Auto 0.6 % (0.0-0.4); Lymphocytes Absolute Auto 0.8 X10*3/uL (1.2-4.9); Lymphocytes Percent Auto 12.9 % (20-40); Mean Corpuscular HGB Conc 33.8 g/dl (31.0-35.0); Mean Corpuscular Hemoglobin 33.3 pg (27.0-33.0); Mean Corpuscular Volume 98.6 fL (80.0-98.0); Mean Platelet Volume 9.2 fL (9.4-12.3); Monocytes Absolute Auto 0.5 X10*3/uL (0.1-1.2); Monocytes Percent Auto 7.8 % (2-11); Neutrophils Absolute Auto 4.8 x10*3/uL (2.0-8.3); Neutrophils Percent Auto 75.6 % (45-73); Platelet Count 325 X10*3/uL (160-400); Red Blood Count 2.88 X10*6/uL (4.20-5.50); Red Cell Distribution Width 13.4 % (11.0-16.0); White Blood Count 6.3 X10*3/uL (4.8-10.8)
[2024-02-06 18:42] LABS: Alanine Aminotransferase 8 U/L (0-31); Albumin Level 4.2 g/dL (3.5-5.0); Alkaline Phosphatase 72 U/L (39-117); Anion Gap 13 (12-20); Aspartate Amino Transferase 15 U/L (5-31); Bilirubin Total 0.4 mg/dL (0.0-1.0); Blood Urea Nitrogen 19 mg/dL (9-16); Calcium 10.4 mg/dL (8.4-10.2); Carbon Dioxide 24 mmol/L (22-29); Chloride 98 mmol/L (96-108); Estimated Glomerular Filt Rate 21; Glucose Random 102 mg/dL (60-115); Potassium 4.6 mmol/L (3.3-5.1); Sodium 130 mmol/L (135-145); Total Protein 7.4 g/dL (6.5-8.0)
[2024-02-07 05:26] LABS: Parathyroid Hormone Intact 59.9 pg/mL (8.7-77.1)
== END 2024-02-06 13:46 | disposition home or self-care (01) ==
LOC: HO.HKASLDS 13:45
PROVIDERS: Visit Provider Internal Medicine Hypertension Specialist
DX: I12.9 Hypertensive chronic kidney disease with stage 1 through stage 4 chronic kidney disease, or unspecified chronic kidney disease (principal); N18.4 Chronic kidney disease, stage 4 (severe); Z85.528 Personal history of other malignant neoplasm of kidney; Z92.21 Personal history of antineoplastic chemotherapy; Z92.3 Personal history of irradiation
CPT/HCPCS: 36415; 80053; 83970; 85025; 99202

== ENCOUNTER 2024-03-19 08:24 | Outpatient (AMB) | payer MEDICARE, MEDICAID, SELFPAY ==
[2024-03-19 08:28] VITALS: BP 138/84; PULSE 81; O2SAT 98
--- NOTE | 2024-03-19 08:28 | HO.NEPHOV ---
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 Next she was recently in the hospital for mastodynia. At that time she was hypotensive and she was also found to have acute kidney injury with a creatinine of 2.8. With IV hydration serum creatinine improved and she has been discharge for outpatient management. She had mild hyponatremia with serum sodium 132 over admission which resolved promptly. Corresponding urine sodium was less than 20 mg/dL Prior to hospitalization she was on amlodipine and atenolol. This was discontinued due to hypotension. Currently she is on on any antihypertensive medication 03/19/24: Here for follow up. Overall doing well. No new issues COUNTS INCLUDE 234 BEDS AT THE [facility] Medical History Chronic kidney disease, stage 4 (severe) Vitamin D deficiency Hypothyroidism (acquired) Vitamin B12 deficiency Obesity (BMI 30-39.9) Depression Allergic rhinitis Impaired fasting glucose Pure hypercholesterolemia Benign essential hypertension Squamous cell carcinoma of nasopharynx Pre-op examination Hypertension Pre-op examination Asthma Recurrent sinus infections Neck mass Anxiety Osteoarthritis of hand Dyspnea Cervical adenopathy MELLY (obstructive sleep apnea) Asthma Surgical History No pertinent past surgical history Family History Father Hypertension Cardiovascular disease Mother Unknown family medical history Social History Housing: House Alcohol intake: former Patient Tobacco Use Status: Former Tobacco user Years Smoked: 44 years but stopped for years at a time e-Cigarette/Vaping Use: Never Used Second Hand Smoke Exposure: No service: No Current occupational status: unemployed and disabled Cognitive needs: No Hearing needs: No Vision needs: Yes (glasses) Physical Exam Vital Signs: Last Vital Signs Pulse 81 03/19/24 08:28 BP 138/84 03/19/24 08:28 Pulse Ox 98 03/19/24 08:28 Oxygen Delivery Method Room Air 03/19/24 08:28 Const General: comfortable; No acute distress Orientation/consciousness: patient oriented x3 Eyes General: appearance normal, both eyes and all related structures Visual Perrin: normal visual perrin by confrontation Neck Neck: Yes supple and Yes no JVD Resp Effort & Inspection: normal respiratory effort and respiratory effort not decreased Auscultation: rhonchi Cardio Palpation: no palpable S3 and no palpable S4 Heart sounds: no rubs GI Inspection: Yes normal to inspection Palpation (GI): Soft to palpation Percussion: Yes normal to percussion Auscultation: normal bowel sounds General: Yes no CVA tenderness Back/Spine/Pelvis Back: no CVA tenderness Skin General skin exam: no petechiae and no purpura Neuro General: patient oriented x3 and no focal motor deficits Extrem General: No clubbing and No edema Results Reviewed Nephrology Results: Hgb 9.6 g/dl (12.0-16.0) L 02/06/24 WBC 6.3 X10*3/uL (4.8-10.8) 02/06/24 Plt Count 325 X10*3/uL (160-400) 02/06/24 Sodium 130 mmol/L (135-145) L 02/06/24 Potassium 4.6 mmol/L (3.3-5.1) 02/06/24 Chloride 98 mmol/L (96-108) 02/06/24 Carbon Dioxide 24 mmol/L (22-29) 02/06/24 BUN 19 mg/dL (9-16) H 02/06/24 Creatinine 2.29 mg/dL (0.5-1.4) H 02/06/24 Calcium 10.4 mg/dL (8.4-10.2) H 02/06/24 PTH Intact 59.9 pg/mL (8.7-77.1) 02/06/24 Urine Protein 30 (1+) mg/dL (Neg-Trace) H 01/18/24 Renal US 01/28/24 Assessment & Plan Assessment & Plan (1) CKD (chronic kidney disease): Code(s): N18.9 - Chronic kidney disease, unspecified Category: Medical Plan Vivian has chronic kidney disease in the setting of hypertension he had any cancer. Baseline creatinine was 1.2 mg/dL back in 2021. She has sustained acute kidney injury in 12/27/2023 most likely due to hypoperfusion. Urine sodium was less than 10 suggestive of hypoperfusion. She also had an mild hypovolemic hyponatremia. With IV hydration serum creatinine improved and recent creatinine was 1.9 mg/dL. Urine sediments are rather bland no reason to believe she has any active glomerular nephritis or interstitial disease. Renal ultrasonogram from 01/26/2024 was unremarkable. Goal is to slow the progression of renal disease Continue to avoid nephrotoxic agents Optimize blood pressure and avoid hypotension. Repeat renal function today Orders: Orders Complete Blood Count Auto Diff Today N18.9 - Chronic kidney disease, unspecified Comprehensive Met. Panel Today N18.9 - Chronic kidney disease, unspecified Medications: Discontinued sulfamethoxazole-trimethoprim 800-160 mg (Bactrim DS) Discontinued Reason: Patient Completed Course 1 tab PO BID 5 days 10 tabs 0RF Coding Level of Care Code Est Pt Level 4 (82050) Diagnoses CKD (chronic kidney disease) N18.9
== END 2024-03-19 08:45 | disposition home or self-care (01) ==
PROVIDERS: PCP Internal Medicine; Visit Provider Internal Medicine Hypertension Specialist
DX: N18.9 Chronic kidney disease, unspecified (principal)
CPT/HCPCS: 99214

== ENCOUNTER 2024-03-19 08:49 | Outpatient (REF) | payer MEDICARE, MEDICAID, SELFPAY ==
[2024-03-19 17:34] LABS: MANUAL DIFF FLAG NO
[2024-03-19 17:45] LABS: Basophils Absolute Auto 0.1 X10*3/uL (0.0-0.2); Basophils Percent Auto 0.6 % (0-2); Eosinophils Absolute Auto 0.1 X10*3/uL (0.0-0.4); Eosinophils Percent Auto 1.5 % (0-4); Hematocrit 31.8 % (37.0-47.0); Hemoglobin 10.8 g/dl (12.0-16.0); Imm Gran Abs Auto 0.02 X10*3/uL (0.00-0.03); Imm Gran Pct Auto 0.3 % (0.0-0.4); Lymphocytes Absolute Auto 1.2 X10*3/uL (1.2-4.9); Lymphocytes Percent Auto 14.4 % (20-40); Mean Corpuscular Volume 94.1 fL (80.0-98.0); Mean Platelet Volume 9.1 fL (9.4-12.3); Monocytes Absolute Auto 0.5 X10*3/uL (0.1-1.2); Neutrophils Absolute Auto 6.1 x10*3/uL (2.0-8.3); Neutrophils Percent Auto 77.2 % (45-73); Platelet Count 303 X10*3/uL (160-400); Red Blood Count 3.38 X10*6/uL (4.20-5.50); Red Cell Distribution Width 15.3 % (11.0-16.0)
[2024-03-19 17:54] LABS: Alanine Aminotransferase 15 U/L (0-31); Albumin Level 4.5 g/dL (3.5-5.0); Alkaline Phosphatase 82 U/L (39-117); Anion Gap 12 (12-20); Aspartate Amino Transferase 22 U/L (5-31); Bilirubin Total 0.6 mg/dL (0.0-1.0); Blood Urea Nitrogen 12 mg/dL (9-16); Calcium 10.2 mg/dL (8.4-10.2); Carbon Dioxide 27 mmol/L (22-29); Chloride 99 mmol/L (96-108); Estimated Glomerular Filt Rate 40; Glucose Random 104 mg/dL (60-115); Potassium 4.2 mmol/L (3.3-5.1); Sodium 134 mmol/L (135-145); Total Protein 7.6 g/dL (6.5-8.0)
== END 2024-03-19 08:50 | disposition home or self-care (01) ==
LOC: HO.HKASLDS 08:49
PROVIDERS: Visit Provider Internal Medicine Hypertension Specialist
DX: N18.9 Chronic kidney disease, unspecified (principal)
CPT/HCPCS: 36415; 80053; 85025; 99212

== ENCOUNTER 2024-07-23 15:44 | Outpatient (AMB) | payer MEDICARE, MEDICAID, SELFPAY ==
--- NOTE | 2024-07-23 15:56 | MHC.PC.OV ---
Vital Signs 07/23/24 15:58 Height 5 ft 2 in Weight 191 lb BMI 34.9 BP 140/90 H Blood Pressure Location Lt brachial Position Sitting Pulse 111 H Pulse Source Pulse Oximeter Temp 97.5 F Temp Source Skin Pulse Oximetry (%) 98 Oxygen Delivery Method Room Air Intake Visit Reasons: pain/swelling LT Breast Intake Note: Patient is here to follow up on pain and swelling of left breast. Genetic Counselor Required: No File System Installer: Not Required per policy Accompanied by: Self / Same As Patient Allergies environmental allergies Allergy (Unknown, Verified 07/23/24 16:08) Unknown Medication List - Last Reconciled 07/23/24 by Jakob Reynolds MD cholecalciferol (vitamin D3) 50 mcg PO DAILY 90 days cyanocobalamin (vitamin B-12) 1,000 mcg PO DAILY 90 days fluticasone propionate 50 mcg/actuation 2 sprays intranasal DAILY PRN 30 days levothyroxine 75 mcg PO DAILY 90 days loratadine 10 mg PO DAILY lorazepam 0.5 mg PO BID PRN 30 days rosuvastatin 5 mg PO DAILY sertraline 100 mg PO DAILY Tobacco use date assessed: 07/23/24 Fall risk assessment: No Falls in past year Last assessed Fall Risk: 07/23/24 Dental Screening Dental Screen Date: 07/23/24 Did you have a dental visit in the last 12 months?: Yes Did you have a dental problem in the last 6 months where you did not have access to dental care?: No Was dental information given to patient?: Patient has dentist HPI pain/swelling LT Breast HPI Details Patient comes in today for evaluation of increased redness, pain and swelling over her left breast and to request for Abx Rx States that her current symptoms started a couple of days ago and are similar to what she had back in December 2023 when she was admitted to [facility] for mastitis and started on oral Clindamycin She last had her follow up mammogram and breast US done back in January 2024 that came back negative She is currently requesting for something to take for the pain, especially at night, as OTC Tylenol does not help and she has not been able to get much sleep over the past couple of nights due to the increased pain in her left breast States that other than her left breast symptoms, she feels well She denies any fever, headaches or dizziness Denies any chest pains, no SOB No nausea/vomiting, no abdominal pain No change in bowel habits noted PFSH Medical History Chronic kidney disease, stage 4 (severe) Vitamin D deficiency Hypothyroidism (acquired) Vitamin B12 deficiency Obesity (BMI 30-39.9) Depression Allergic rhinitis Impaired fasting glucose Pure hypercholesterolemia Benign essential hypertension Squamous cell carcinoma of nasopharynx Pre-op examination Hypertension Pre-op examination Asthma Recurrent sinus infections Neck mass Anxiety Osteoarthritis of hand Dyspnea Cervical adenopathy MELLY (obstructive sleep apnea) Asthma Surgical History No pertinent past surgical history Family History Father Hypertension Cardiovascular disease Mother Unknown family medical history Social History Housing: House Alcohol intake: current Alcohol intake frequency: holidays/special occasions only Patient Tobacco Use Status: Former Tobacco user Years Smoked: 44 years but stopped for years at a time e-Cigarette/Vaping Use: Never Used Second Hand Smoke Exposure: Yes service: No Current occupational status: unemployed and disabled Cognitive needs: No Hearing needs: No Vision needs: Yes (glasses) Questionnaire PHQ-9 Over the last 2 weeks, how often have you been bothered by any of the following problems? 1. Little interest or pleasure in doing things: not at all 2. Feeling down, depressed, or hopeless: not at all 3. Trouble falling or staying asleep, or sleeping too much: not at all 4. Feeling tired or having little energy: not at all 5. Poor appetite or overeating: not at all 6. Feeling bad about yourself - or that you are a failure or have let yourself or your family down: not at all 7. Trouble concentrating on things, such as reading the newspaper or watching television: not at all 8. Moving or speaking so slowly that other people could have noticed. Or the opposite - being so fidgety or restless that you have been moving around a lot more than usual: not at all 9. Thoughts that you would be better off or of hurting yourself in some way: not at all Total score: 0 Depression Screening Interpretation: Negative Depression Screening Done: Yes 88374 - PHQ-9 Billing: Yes Source: Developed by Drs. Eddie Maldonado, Isabel Castellanos, Jose Puga and colleagues, with an educational bree from [employer]. Thrive Questionnaire Date Thrive assessed: 07/23/24 I am a: Patient What is your living situation today?: I have a steady place to live Within the past 12 months, did the food you bought not last and you didn't have the money to get more?: Never true Within the past 12 months, did you worry whether your food would run out before you got money to buy more?: Never true Do you have trouble paying for medicines?: No Do you have trouble getting transportation to medical appointments?: No Do you have trouble paying your heating and electricity bill?: No Do you have trouble taking care of your child, family member or friend?: No Do you have trouble with day-to-day activities such as bathing, preparing meals, shopping, managing finances, etc.?: No Are you currently unemployed and looking for a job?: No Are you interested in more education?: No Please select the resources that you would like help with: None Currently or been in a relationship where the following occur: No concerns reported THRIVE Score: 0 AUDIT C Alcohol Use Questionnaire (AUDIT-C) 1. How often do you have a drink containing alcohol?: Never 3. How often do you have six or more drinks on one occasion?: Never Total Score: 0 Score Reviewed/Action Taken: Yes DAVIS-7 AMB Questionnaire DAVIS-7 Date DAVIS - 7 assessed: 07/23/24 Feeling nervous, anxious, or on edge: 0 = Not at all Not being able to stop or control worryin = Not at all Worrying too much about different things: 0 = Not at all Trouble relaxin = Not at all Being so restless that it is hard to sit still: 0 = Not at all Becoming easily annoyed or irritable: 0 = Not at all Feeling afraid as if something awful might happen: 0 = Not at all Total DAVIS-7 score (0-4 normal; 5-9 mild; 10-14 moderate; 15-21 severe): 0 Source: Developed by Isabel Caba.W. Emanuel, Jose Puga and colleagues, with an educational bree from [email or web address]. Review of Systems Const Denies chills, Denies fatigue, Denies fever(s) and Denies headache(s) ENT Denies dysphagia, Denies dizziness, Reports dry mouth (at times), Denies otalgia, Denies headache(s), Denies neck pain, Denies odynophagia, Reports tinnitus (on and off) and Denies sore throat Card Denies chest pain, Denies palpitations and Denies dyspnea Resp Denies chest congestion, Denies cough and Denies dyspnea GI Denies abdominal pain, Denies constipation, Denies dysphagia, Denies heartburn, Denies diarrhea, Denies nausea, Denies odynophagia and Denies vomiting Denies difficulty voiding, Denies nocturia and Denies dysuria Musc Denies back pain, Denies neck pain and Reports tingling (in both lower extremities) Skin/Breast Details: increased swelling, redness and pain over the left breast, mostly over the lower half of the breast Denies rash Neuro Denies dizziness, Denies headache(s), Reports tingling (in both lower extremities) and Reports paresthesias Endo Denies fatigue and Denies palpitations Physical exam (Primary Care) Vital Signs: Last Vital Signs Temp 97.5 F 07/23/24 15:58 Pulse 111 H 07/23/24 15:58 BP 140/90 H 07/23/24 15:58 Pulse Ox 98 07/23/24 15:58 Oxygen Delivery Method Room Air 07/23/24 15:58 BMI result Body Mass Index 34.9 Tobacco/Smoking Status: Tobacco use Status Tobacco use date assessed 07/23/24 07/23/24 16:04 Patient Tobacco Use Status Former Tobacco user 07/23/24 16:04 e-Cigarette/Vaping Use Never Used 07/23/24 16:04 PHQ-9: PHQ-9 Score PHQ-9: Total score 0 07/23/24 16:07 Depression Screening Interpretation: Negative Thrive Assessment: Date of Thrive Assessment Date Thrive assessed 07/23/24 07/23/24 16:04 Currently or been in a relationship where the following occur: No concerns reported Const General: no acute distress and alert HENMT Throat: Yes posterior oropharynx normal and Yes tonsils normal (no TP congestion noted) Neck Neck: Yes no lymphadenopathy and Yes supple Thyroid: Thyroid normal Chest Other: increased erythema with mild tenderness on palpation over the entire lower half of the left breast; erythematous area is slightly warm to touch Resp Auscultation: clear to auscultation bilaterally, no rales and no wheezes Cardio Rate: regular rate Rhythm: regular rhythm Heart sounds: no murmurs GI Palpation (GI): Soft to palpation and nontender Auscultation: normal bowel sounds General: Yes no CVA tenderness Back/Spine/Pelvis Back: no CVA tenderness Thoracic/Lumbar Spine: No lumbar spinal tenderness Skin Rashes: no rashes Extrem General: Yes no clubbing, cyanosis or edema Coding Level of Care Code Est Pt Level 3 (28500) Diagnoses Acute mastitis of left breast N61.0 Additional Codes PHQ-9 - 16554 - PHQ-9 Billing: Yes ([id number]) Assessment & Plan Assessment & Plan (1) Acute mastitis of left breast: Code(s): N61.0 - Mastitis without abscess Category: Medical Plan: Will start patient on Cephalexin 500 mg Q 6 hours x 7 days Will start her as well on some Tramadol 50 mg Q HS PRN for increased pain Plan Follow up as scheduled in 2 weeks Medications: New tramadol Take only as needed for severe pain 50 mg PO BEDTIME PRN 7 tabs 0RF severe pain cephalexin 500 mg PO Q6H 7 days 28 caps 0RF
[2024-07-23 15:58] VITALS: BP 140/90; PULSE 111; TEMP 36.4; O2SAT 98; BMI 34.9
--- OUTSIDE RECORDS SUMMARY | 2024-07-23 18:30 | XMS_ITS | Continuity of Care Document ---
Author Organization [place] - [facility], [facility] Address [address] [place] [address] Assessment No assessment recorded. Plan of Treatment Reminders Order Date Submit Date Provider Last Modified By Organization Details Last Modified Time Details Appointments Establish ed 30 2024 10:00A M EDWIN Vines MD Not available Not available Not available Lab None recorded. Referral None recorded. Procedures None recorded. Surgeries None recorded. Imaging None recorded. Medication Orders None recorded. Patient TargetsNo targets recorded. Patient InstructionsNo instructions recorded. Reason for Referral None Reported. Problems Name Problem SNOMED Code Status Onset Date Resolution Date Notes Provider Name and Address Organization Details Recorded Time Mass of neck 111718767 Active 2021 Localized swelling, mass and lump, neck; Note: Date Diagnosed : 08/04/2021 10:20 AM (R22.1) Not Available [facility] 4 03:12:11 Neck swelling 671425516 Active 2021 Localized swelling, mass and lump, neck; Note: Date Diagnosed : 08/04/2021 10:20 AM (R22.1) Not Available [facility] 4 03:12:11 Follow-up visit Active 2020 Encounter for follow-up examinati on after completed treatment for malignant neoplasm; Note: Date Diagnosed : 02/22/2021 9:25 AM (Z08) Not Available [facility] 4 03:12:11 Eustachia n tube disorder 19934640 Active 2019 Other specified disorders of Eustachia n tube, unspecifi ed ear; Note: Date Diagnosed : 0 12:07 PM (H69.80) Not Available [facility] 4 03:12:12 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 7159705081 Active 2021 Personal history of malignant neoplasm of unspecifi ed site of lip, oral cavity, and pharynx; Note: Date Diagnosed : 03/27/2022 8:41 AM (Z85.819) Not Available [facility] 4 03:12:10 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 309717988 Active 2019 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; Note: Date Diagnosed : 0 10:26 AM (C11.1) Not Available [facility] 4 03:12:10 Allergic rhinitis caused by pollen 26393410 Active 2019 Allergic rhinitis due to pollen; Note: Date Diagnosed : 0 12:07 PM (J30.1) Not Available [facility] 4 03:12:11 Allergic rhinitis 01854304 Active 2021 Allergic rhinitis, unspecifi ed; Note: Date Diagnosed : 08/04/2021 10:20 AM (J30.9) Allergi c rhinitis, unspecifi ed; Note: Date Diagnosed : 02/22/2021 9:25 AM (J30.9) ; Start Date : 1 Not Available [facility] 4 03:12:11 Nasal congestio n 16108657 Active 2021 Nasal congestio n; Note: Date Diagnosed : 09/13/2021 12:25 PM (R09.81) Not Available [facility] 4 03:12:10 History of malignant neoplasm of pharynx 08005872357 107 Active 2021 Personal history of malignant neoplasm: Other and unspecifi ed oral cavity and pharynx; Note: Date Diagnosed : 03/27/2022 8:41 AM (V10.02) Not Available [facility] 4 03:12:10 Gastroeso phageal reflux disease without esophagit is 321213751 Active 2023 MAURICE ROBERTS PA-C [address] [place] [address],[address] [place], [phone] , [facility] 12:04:31 Chronic hoarsenes s 00890495722 05 Active 2023 MAURICE ROBERTS PA-C [address] [facility],[place] [address], [place], [phone] , [facility] 12:04:38 Problem Notes None recorded. Procedures Surgical History Date Name Laterality Status Provider Name and Address Organization Details Recorded Time 06/04/2024 FFL_RE completed EDWIN CAIN MD [address] [facility],[place] [address], [place], [address], [facility] 06/04/2024 16:27:33 04/14/2024 FOL_DP completed MAURICE ROBERTS PA-C [address] [facility],[place] [address], [place], [address], [facility] 04/14/2024 12:03:17 Imaging Results None recorded. Procedure Notes None recorded. Medical Equipment None Reported. Medications Name Sig Start Date Stop Date Status Note LastModified by Organization Details LastModified Time amoxicill in 500 mg capsule TAKE 1 CAPSULE BY MOUTH EVERY 12 HOURS UNTIL GONE active Not Available Not Available No t Available clindamyc in HCl 300 mg capsule TAKE 1 CAPSULE BY MOUTH EVERY 6 HOURS FOR 5 DAYS 04/14 completed Not Available Not Available Not Available cetirizin e 10 mg tablet 2020 active Medicati on ID: [id number] D uration Value: 30 Prescri bed By Name: Edwin corral MD Brand Name: cetirizi ne Send Method: E-Prescr ibed Sub s Allowed: subs OK Speci al Instruct ion: Take 1 tablet by mouth every day Medi cationGe nericNam e: cetirizi ne Not Available Not Available Not Available azithromy farrah 250 mg tablet TAKE 2 TABLETS BY MOUTH TODAY, THEN TAKE 1 TABLET DAILY FOR 4 DAYS DIRECTED 04/14 completed Not Available Not Available Not Available ibuprofen 800 mg tablet 1 TABLET EVERY 8 HOURS NEEDED FOR PAIN active Not Available Not Available No t Available hydrocodo ne 5 mg-acetam inophen 325 mg tablet 2019 active Medicati on ID: [id number] B rand Name: hydrocod one-acet aminophe n Send Method: E-Prescr ibed Sub s Allowed: subs OK Medic ationGen ericName : hydrocod one-acet aminophe n Not Available Not Available Not Available sertralin e 100 mg tablet TAKE 1 TABLET BY MOUTH EVERY DAY active Not Available Not Available No t Available atenolol 25 mg tablet TAKE 1 TABLET BY MOUTH EVERY DAY active Not Available Not Available No t Available sulfameth oxazole 800 mg-trimet hoprim 160 mg tablet TAKE 1 TABLET BY MOUTH TWICE A DAY FOR 5 DAYS 04/14 completed Not Available Not Available Not Available acetamino phen ER 650 mg tablet,ex tended release TAKE 1 TABLET BY MOUTH EVERY 8 HOURS NEEDED FOR PAIN active Not Available Not Available No t Available levothyro xine 75 mcg tablet TAKE 1 TABLET BY MOUTH EVERY DAY active Not Available Not Available No t Available lorazepam 0.5 mg tablet TAKE 1 TABLET BY MOUTH 2 TIMES DAILY NEEDED FOR ANXIETY active Not Available Not Available No t Available amlodipin e 10 mg tablet TAKE 1 TABLET BY MOUTH EVERY DAY active Not Available Not Available No t Available levothyro xine 50 mcg tablet TAKE 1 TABLET BY MOUTH EVERY DAY active Not Available Not Available No t Available cephalexi n 500 mg capsule TAKE 1 CAPSULE BY MOUTH THREE TIMES A DAY FOR 7 DAYS 04/14 completed Not Available Not Available Not Available omeprazol e 20 mg capsule,d elayed release TAKE 1 CAPSULE BY MOUTH EVERY DAY 2023 active Not Available Not Available Not Avai lable albuterol sulfate HFA 90 mcg/actua tion aerosol inhaler 2019 active Medicati on ID: [id number] B rand Name: albutero l sulfate Send Method: E-Prescr ibed Sub s Allowed: subs OK Medic ationGen ericName : albutero l sulfate Not Available Not Available Not Available fluticaso ne propionat e 50 mcg/actua tion nasal spray,nia pension 2019 active Medicati on ID: [id number] B rand Name: fluticas one propiona te Send Method: E-Prescr ibed Sub s Allowed: subs OK Medic ationGen ericName : fluticas one propiona te Not Available Not Available Not Available loratadin e 10 mg tablet 2019 active Medicati on ID: [id number] B rand Name: mic burton Send Method: E-Prescr ibed Sub s Allowed: subs OK Medic ationGen ericName : mic burton Not Available Not Available Not Available Vitamin B-12 1,000 mcg tablet TAKE 1 TABLET BY MOUTH EVERY DAY active Not Available Not Available No t Available oxycodone 5 mg tablet TAKE 1/2 TABLET EVERY 6 HOURS NEEDED FOR MODERATE PAIN FOR 3 DAYS 04/14 completed Not Available Not Available Not Available rosuvasta tin 5 mg tablet TAKE 1 TABLET BY MOUTH EVERY DAY active Not Available Not Available No t Available nitrofura ntoin monohydra te/macroc rystals 100 mg capsule TAKE 1 CAPSULE ORALLY EVERY 12 HOURS FOR 7 DAYS MUST ADMINIST ER WITH A MEAL/CHALO D 04/14 completed Not Available Not Available Not Available Vitamin D3 50 mcg (2,000 unit) capsule TAKE 1 CAPSULE BY MOUTH EVERY DAY active Not Available Not Available No t Available Vitals Date Recorded Body height Body mass index (BMI) Body weight Provider Name and Address Organization Details Last Updated DateTime 06/04/2024 157.48 cm 33.3 kg/m2 45423.81 g Selene Mchugh [place] - [facility] 06/04/2024 15:24:27 Social History None recorded. Functional Status None recorded. Mental Status None recorded. Family History Nothing Reported. Medical History No medical history recorded. Gynecological HistoryNo gynecological history recorded. Obstetrics History GPAL:G 0 P 0 0 0 0 Past Encounters Encounter ID Performer Location Encounter Start Date Encounter Closed Date Diagnosis/Indication Diagnosis SNOMED-CT Code Diagnosis ICD10 Code Diagnosis Note [id number] EDWIN CAIN MD [facility] [address] [address] 06/04/2024 15:09:34 06/04/2024 16:14:46 History of malignant neoplasm of head and/or neck 114769089 Z85.89 Exam and Laryngosco py showed no evidence of disease. We will continue routine surveillan ce. I gave reassuranc e I don't see a vocal cord lesion on exam today. She will f/u in 6 months for continued surveillan ce. Screening for malignant neoplasm of respiratory tract 766210494 Z12.2 Exam and Laryngosco py showed no evidence of disease. We will continue routine surveillan ce. Health Concerns Section Related Observation LastModified by Organization Detai ls LastModified Time None Recorded Concern Status LastModified by Organization Details LastModified Time None Recorded Payers Encounter Date Sequence Insurance Name Policy Number Policy Lara Covered Member ID Lara Member ID Guarantor Name 06/04/2024 1 [facility] Vivian Dorsey [id number] Vivian Dorsey Notes Date Note Type Note Provider Name and Address Organization Details Recorded Time 06/04/2024 text/html 63-year-old fema debbie with a history of nasopharyngeal carcinoma treated with chemotherapy and radiation which was completed in 2020. Her posttreatment PET was clear. She was lost to f/u and saw Maurice who noted a possible right vocal cord lesion. EDWIN CAIN MD [address] [place] [address], [phone], [facility] - [facility] 06/04/2024 16:29:40 OBGyn Episode No OBEpisode recorded.
== END 2024-07-23 16:47 | disposition home or self-care (01) ==
PROVIDERS: PCP Internal Medicine; Visit Provider Internal Medicine
DX: N61.0 Mastitis without abscess (principal)

== ENCOUNTER → 2024-07-23 15:44 | Outpatient (BNVA) | payer MEDICARE, MEDICAID, SELFPAY | PROVIDERS: PCP Internal Medicine; Visit Provider Internal Medicine | DX: N61.0 Mastitis without abscess (principal); N64.4 Mastodynia | CPT/HCPCS: 96127; 99212 ==

== ENCOUNTER 2024-07-30 10:38 | Outpatient (REF) | payer MEDICARE, MEDICAID, SELFPAY ==
[2024-07-30 17:42] LABS: MANUAL DIFF FLAG NO
[2024-07-30 17:45] LABS: Basophils Percent Auto 0.5 % (0-2); Eosinophils Absolute Auto 0.1 X10*3/uL (0.0-0.4); Eosinophils Percent Auto 1.5 % (0-4); Hematocrit 35.8 % (37.0-47.0); Hemoglobin 11.7 g/dl (12.0-16.0); Imm Gran Abs Auto 0.05 X10*3/uL (0.00-0.03); Imm Gran Pct Auto 0.8 % (0.0-0.4); Lymphocytes Percent Auto 16.9 % (20-40); Mean Corpuscular HGB Conc 32.7 g/dl (31.0-35.0); Mean Corpuscular Hemoglobin 33.2 pg (27.0-33.0); Mean Corpuscular Volume 101.7 fL (80.0-98.0); Mean Platelet Volume 9.5 fL (9.4-12.3); Monocytes Absolute Auto 0.4 X10*3/uL (0.1-1.2); Monocytes Percent Auto 7.1 % (2-11); Neutrophils Absolute Auto 4.4 x10*3/uL (2.0-8.3); Neutrophils Percent Auto 73.2 % (45-73); Platelet Count 290 X10*3/uL (160-400); Red Blood Count 3.52 X10*6/uL (4.20-5.50); Red Cell Distribution Width 13.1 % (11.0-16.0)
[2024-07-30 18:04] LABS: Alanine Aminotransferase 26 U/L (0-31); Albumin Level 4.4 g/dL (3.5-5.0); Alkaline Phosphatase 98 U/L (39-117); Anion Gap 12 (12-20); Aspartate Amino Transferase 41 U/L (5-31); Bilirubin Total 0.5 mg/dL (0.0-1.0); Blood Urea Nitrogen 16 mg/dL (9-16); Calcium 10.3 mg/dL (8.4-10.2); Carbon Dioxide 24 mmol/L (22-29); Chloride 104 mmol/L (96-108); Cholesterol 175 mg/dL (<200); Estimated Glomerular Filt Rate 47; Glucose Fasting 86 mg/dL (60-99); Glucose Random 85 mg/dL (60-115); HDL Cholesterol 49 mg/dL (>40); LDL Cholesterol Calculated 93 mg/dL (<100); Potassium 3.9 mmol/L (3.3-5.1); Sodium 136 mmol/L (135-145); Total Protein 8.3 g/dL (6.5-8.0); Triglycerides 169 mg/dL (<150)
[2024-07-30 18:16] LABS: Appearance Urine Clear; Color Urine Yellow; Glucose Urine UA Negative (Negative); Leukocyte Esterase Urine Negative (Negative); Nitrite Urine Negative (Negative); PH 6.5 (5.0-9.0); Specific Gravity - Urine 1.015 (1.005-1.025); Urine Blood Negative (Negative); Urine Ketones Negative (Negative); Urine Protein Negative (Neg-Trace)
[2024-07-30 18:18] LABS: Free T4 (Free Thyroxine) 1.24 ng/dL (0.71-1.85); Thyroid Stimulating Hormone 5.89 uIU/mL (0.32-4.0); Vitamin D 25-OH Total 65.8 ng/mL (>30)
[2024-07-30 18:33] LABS: Folate 12.9 ng/mL (> or = 4.0); Vitamin B12 > 2000 pg/mL (200-900)
== END 2024-07-30 10:39 | disposition home or self-care (01) ==
LOC: HO.HKASLDS 10:38
PROVIDERS: PCP Internal Medicine; Visit Provider Internal Medicine Hypertension Specialist
DX: I12.9 Hypertensive chronic kidney disease with stage 1 through stage 4 chronic kidney disease, or unspecified chronic kidney disease (principal); N18.9 Chronic kidney disease, unspecified; Z85.528 Personal history of other malignant neoplasm of kidney; Z92.21 Personal history of antineoplastic chemotherapy; Z92.3 Personal history of irradiation; D64.9 Anemia, unspecified; E78.00 Pure hypercholesterolemia, unspecified; E03.9 Hypothyroidism, unspecified; R30.0 Dysuria; E53.8 Deficiency of other specified B group vitamins; E55.9 Vitamin D deficiency, unspecified
CPT/HCPCS: 36415; 80048; 80053; 80061; 81003; 82306; 82607; 82746; 84439; 84443; 85025; 99212

== ENCOUNTER 2024-07-30 10:38 | Outpatient (AMB) | payer MEDICARE, MEDICAID, SELFPAY ==
[2024-07-30 10:39] VITALS: BP 118/84; PULSE 97; O2SAT 98; BMI 34.7
--- NOTE | 2024-07-30 10:39 | HO.NEPHOV_ITS ---
Vital Signs 07/30/24 10:39 Height 5 ft 2 in Weight 190 lb BMI 34.7 BP 118/84 Blood Pressure Location Lt brachial Position Sitting Pulse 97 Pulse Source Pulse Oximeter Pulse Oximetry (%) 98 Oxygen Delivery Method Room Air Intake Visit Reasons: 4 mon follow up/ Conf Material Analyst Required: No Accompanied by: Self / Same As Patient Allergies environmental allergies Allergy (Unknown, Verified 07/30/24 10:42) Unknown Medication List - Last Reconciled 07/30/24 by Mic Richardson MD cephalexin 500 mg PO Q6H 7 days cholecalciferol (vitamin D3) 50 mcg PO DAILY 90 days cyanocobalamin (vitamin B-12) 1,000 mcg PO DAILY 90 days doxycycline hyclate 100 mg PO BID 10 days fluticasone propionate 50 mcg/actuation 2 sprays intranasal DAILY PRN 30 days levothyroxine 75 mcg PO DAILY 90 days loratadine 10 mg PO DAILY lorazepam 0.5 mg PO BID PRN 30 days rosuvastatin 5 mg PO DAILY sertraline 100 mg PO DAILY tramadol 50 mg PO BEDTIME PRN HPI Comments Details: Vivian is a pleasant 63-year-old woman with a history of kidney cancer status post chemotherapy and radiation 2 years ago along with a history of hypertension hyperlipidemia. Next she was recently in the hospital for mastodynia. At that time she was hypotensive and she was also found to have acute kidney injury with a creatinine of 2.8. With IV hydration serum creatinine improved and she has been discharge for outpatient management. She had mild hyponatremia with serum sodium 132 over admission which resolved promptly. Corresponding urine sodium was less than 20 mg/dL Prior to hospitalization she was on amlodipine and atenolol. This was discontinued due to hypotension. Currently she is on on any antihypertensive medication 03/19/24: Here for follow up. Overall doing well. No new issues 07/30/24: Doing well from a renal stand point Non oliguric [facility] Medical History Chronic kidney disease, stage 4 (severe) Vitamin D deficiency Hypothyroidism (acquired) Vitamin B12 deficiency Obesity (BMI 30-39.9) Depression Allergic rhinitis Impaired fasting glucose Pure hypercholesterolemia Benign essential hypertension Squamous cell carcinoma of nasopharynx Pre-op examination Hypertension Pre-op examination Asthma Recurrent sinus infections Neck mass Anxiety Osteoarthritis of hand Dyspnea Cervical adenopathy MELLY (obstructive sleep apnea) Asthma Surgical History No pertinent past surgical history Family History Father Hypertension Cardiovascular disease Mother Unknown family medical history Social History Housing: House Alcohol intake: current Alcohol intake frequency: holidays/special occasions only Patient Tobacco Use Status: Former Tobacco user Years Smoked: 44 years but stopped for years at a time e-Cigarette/Vaping Use: Never Used Second Hand Smoke Exposure: Yes service: No Current occupational status: unemployed and disabled Cognitive needs: No Hearing needs: No Vision needs: Yes (glasses) Physical Exam Vital Signs: Last Vital Signs Pulse 97 07/30/24 10:39 BP 118/84 07/30/24 10:39 Pulse Ox 98 07/30/24 10:39 Oxygen Delivery Method Room Air 07/30/24 10:39 BMI result Body Mass Index 34.7 Comfortable Neck supple no JVD. Lungs entry equal no rales. Heart S1-S2 heard no gallop or rub. Abdomen soft nontender. Neuro alert awake oriented. No asterixis. Extremities no edema. Results Reviewed Nephrology Results: Hgb 10.8 g/dl (12.0-16.0) L 03/19/24 WBC 8.0 X10*3/uL (4.8-10.8) 03/19/24 Plt Count 303 X10*3/uL (160-400) 03/19/24 Sodium 134 mmol/L (135-145) L 03/19/24 Potassium 4.2 mmol/L (3.3-5.1) 03/19/24 Chloride 99 mmol/L (96-108) 03/19/24 Carbon Dioxide 27 mmol/L (22-29) 03/19/24 BUN 12 mg/dL (9-16) 03/19/24 Creatinine 1.33 mg/dL (0.5-1.4) 03/19/24 Calcium 10.2 mg/dL (8.4-10.2) 03/19/24 PTH Intact 59.9 pg/mL (8.7-77.1) 02/06/24 Renal US 01/28/24 Assessment & Plan Assessment & Plan (1) CKD (chronic kidney disease): Code(s): N18.9 - Chronic kidney disease, unspecified Category: Medical Plan Vivian has chronic kidney disease in the setting of boderline hypertension and s/p chemotheraphy. Baseline creatinine was 1.2 mg/dL back in 2021. She has sustained acute kidney injury in 12/27/2023 most likely due to hypoperfusion. Urine sodium was less than 10 suggestive of hypoperfusion. She also had an mild hypovolemic hyponatremia. With IV hydration serum creatinine improved and recent creatinine was 1.9 mg/dL. Urine sediments are rather bland no reason to believe she has any active glomerular nephritis or interstitial disease. Renal ultrasonogram from 01/26/2024 was unremarkable. Goal is to slow the progression of renal disease Continue to avoid nephrotoxic agents Optimize blood pressure and avoid hypotension. Repeat renal function today Orders: Orders Basic Metabolic Panel Today N18.9 - Chronic kidney disease, unspecified Coding Level of Care Code Est Pt Level 4 (52279) Diagnoses CKD (chronic kidney disease) N18.9
--- OUTSIDE RECORDS SUMMARY | 2024-07-30 11:52 | XMS_ITS | Data Portability ---
Author Organization [place] [facility], Allergy Address [address] [address] Assessment Encounter Date Assessment Date Assessment LastModified by Organization Details LastModified Time 04/14/2024 04/14/2024 63-year-old female with history of nasopharyngeal carcinoma who completed treatment in 2020 presents for reevaluation. Flexible laryngoscopy was obtained today. No sign of recurrent lesion in the nasopharynx and patent eustachian tube orifice. There is some edema of the false cords bilaterally and there is a small nodular area on the right cord. Bilateral cords are freely mobile. Patient does have heartburn and seasonal allergies. I have recommended a trial of omeprazole with close follow-up in 4 to 6 weeks for reevaluation. Should complete laryngoscopy at that time. Proper use of omeprazole was discussed. She understands and agrees to this plan and has no further questions. Not available 04/14/2024 12:04:24 Plan of Treatment Reminders Order Date Submit Date Provider Last Modified By Organization Details Last Modified Time Details Appointments Establish ed 30 2024 10:00A M EDWIN Vines MD Not available Not available Not available Lab None recorded. Referral None recorded. Procedures None recorded. Surgeries None recorded. Imaging None recorded. Medication Orders omeprazol e 20 mg capsule,d elayed release 2023 024 [facility] #[id number], [address] [place], [address], 04/14/2024 12:05:18 Patient TargetsNo targets recorded. Patient InstructionsNo instructions recorded. Reason for Referral None Reported. Problems Name Problem SNOMED Code Status Onset Date Resolution Date Notes Provider Name and Address Organization Details Recorded Time Mass of neck 700385348 Active 2021 Localized swelling, mass and lump, neck; Note: Date Diagnosed : 08/04/2021 10:20 AM (R22.1) Not Available [facility] 4 03:12:11 Neck swelling 939178361 Active 2021 Localized swelling, mass and lump, neck; Note: Date Diagnosed : 08/04/2021 10:20 AM (R22.1) Not Available [facility] 4 03:12:11 Follow-up visit Active 2020 Encounter for follow-up examinati on after completed treatment for malignant neoplasm; Note: Date Diagnosed : 02/22/2021 9:25 AM (Z08) Not Available [facility] 4 03:12:11 Eustachia n tube disorder 85955296 Active 2019 Other specified disorders of Eustachia n tube, unspecifi ed ear; Note: Date Diagnosed : 0 12:07 PM (H69.80) Not Available [facility] 4 03:12:12 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 7309750679 Active 2021 Personal history of malignant neoplasm of unspecifi ed site of lip, oral cavity, and pharynx; Note: Date Diagnosed : 03/27/2022 8:41 AM (Z85.819) Not Available [facility] 4 03:12:10 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 111860440 Active 2019 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; Note: Date Diagnosed : 0 10:26 AM (C11.1) Not Available [facility] 4 03:12:10 Allergic rhinitis caused by pollen 01136276 Active 2019 Allergic rhinitis due to pollen; Note: Date Diagnosed : 0 12:07 PM (J30.1) Not Available [facility] 4 03:12:11 Allergic rhinitis 62936867 Active 2021 Allergic rhinitis, unspecifi ed; Note: Date Diagnosed : 08/04/2021 10:20 AM (J30.9) Allergi c rhinitis, unspecifi ed; Note: Date Diagnosed : 02/22/2021 9:25 AM (J30.9) ; Start Date : 1 Not Available [facility] 4 03:12:11 Nasal congestio n 31416555 Active 2021 Nasal congestio n; Note: Date Diagnosed : 09/13/2021 12:25 PM (R09.81) Not Available [facility] 4 03:12:10 History of malignant neoplasm of pharynx 41870710044 107 Active 2021 Personal history of malignant neoplasm: Other and unspecifi ed oral cavity and pharynx; Note: Date Diagnosed : 03/27/2022 8:41 AM (V10.02) Not Available [facility] 4 03:12:10 Gastroeso phageal reflux disease without esophagit is 722134275 Active 2023 CARYN ROBERTS PA-C [address] [place] [address], [place], [phone] , [facility] - [facility] 4 12:04:31 Chronic hoarsenes s 49950051741 05 Active 2023 CARYN ROBERTS PA-C [address] [place] [address], [place], [phone] , [facility] - [facility] 4 12:04:38 Problem Notes None recorded. Procedures Surgical History Date Name Laterality Status Provider Name and Address Organization Details Recorded Time 06/04/2024 FFL_RE completed EDWIN CAIN MD [address] [place] [address], [phone], [facility] - [facility] 06/04/2024 16:27:33 04/14/2024 FOL_DP completed CARYN ROBERTS PA-C [address] [place] [address], [phone], [facility] - [facility] 04/14/2024 12:03:17 Imaging Results None recorded. Procedure [...] mg tablet 2020 active Medicati on ID: [id number] D uration Value: 30 Prescri bed By [...] mg tablet 2019 active Medicati on ID: [id number] B rand Name: hydrocod one-acet aminophe n [...] aerosol inhaler 2019 active Medicati on ID: [id number] B rand Name: albutero l sulfate Send Method: E-Prescr ibed Sub s Allowed: subs OK Medic ationGen ericName : albutero l sulfate Not Available Not Available Not Available fluticaso ne propionat e 50 mcg/actua tion nasal spray,nia pension 2019 active Medicati on ID: [id number] B rand Name: fluticas one propiona te Send Method: E-Prescr ibed Sub s Allowed: subs OK Medic ationGen ericName : fluticas one propiona te Not Available Not Available Not Available loratadin e 10 mg tablet 2019 active Medicati on ID: [id number] B rand Name: loratadi ne Send Method: E-Prescr ibed Sub s Allowed: subs OK Medic ationGen ericName : loratadi ne Not Available Not Available Not Available Vitamin [...] and Address Organization Details Last Updated DateTime 04/14/2024 157.48 cm 33.3 kg/m2 36581.81 g Klarissa Drake [place] [facility] 04/14/2024 11:22:18 Date Recorded Body height Body mass index (BMI) Body weight Provider Name and Address Organization Details Last Updated DateTime 06/04/2024 157.48 cm 33.3 kg/m2 89115.81 g Selene Mchugh [facility] 06/04/2024 15:24:27 Social History None recorded. Functional Status None recorded. Mental Status None recorded. Family History Nothing Reported. Medical History No medical history recorded. Gynecological HistoryNo gynecological history recorded. Obstetrics History GPAL:G 0 P 0 0 0 0 Past Encounters Encounter ID Performer Location Encounter Start Date Encounter Closed Date Diagnosis/Indication Diagnosis SNOMED-CT Code Diagnosis ICD10 Code Diagnosis Note JACEK NI MD [facility] [address] [address] 04/14/2024 11:02:04 04/14/2024 11:34:51 Gastroesophageal reflux disease without esophagitis 489541815 K21.9 Chronic hoarseness 78792 13225 105 R49.0 History of malignant neoplasm of head and/or neck 387968564 Z85.89 [id number] EDWIN CAIN MD [facility] [address] [address] 06/04/2024 15:09:34 06/04/2024 16:14:46 History of malignant neoplasm of head and/or neck 139180790 Z85.89 Exam and Laryngosco py showed no evidence of disease. We will continue routine surveillan ce. I gave reassuranc e I don't see a vocal cord lesion on exam today. She will f/u in 6 months for continued surveillan ce. Screening for malignant neoplasm of respiratory tract 998516929 Z12.2 Exam and Laryngosco py showed no evidence of disease. We will continue routine surveillan ce. Health Concerns Section Related Observation LastModified by Organization Detai ls LastModified Time None Recorded Concern Status LastModified by Organization Details LastModified Time None Recorded Advance Directives Directive None Recorded Payers Encounter Date Sequence Insurance Name Policy Number Policy Lara Covered Member ID Lara Member ID Guarantor Name 04/14/2024 1 [facility] Vivian Tejeda Willian [id number] Vivian Dorsey 06/04/2024 1 [facility] Vivian Tejeda Eames [id number] Vivian Dorsey Notes Date Note Type Note Provider Name and Address Organization Details Recorded Time 04/14/2024 text/html 63-year-old iris lewis presents for reevaluation. She has a history of nasopharyngeal carcinoma treated with chemotherapy and radiation which was completed in 2020. Her posttreatment PET was clear. She has been lost to follow-up over the last year. Overall she has been doing well but did have some ear pain last week. It has since resolved but it prompted her to present for reevaluation. She has longstanding hoarseness and difficulty swallowing after radiation but no acute changes. No weight loss or other red flag symptoms. She quit smoking after her initial diagnosis. JACEK NI MD [address] [place] [address], [phone], [place] [facility] 04/14/2024 12:44:54 06/04/2024 text/html 63-year-old iris lewis with a history of nasopharyngeal carcinoma treated with chemotherapy and radiation which was completed in 2020. Her posttreatment PET was clear. She was lost to f/u and saw Caryn who noted a possible right vocal cord lesion. EDWIN CAIN MD [address] [place] [address], [phone], [place] [facility] 06/04/2024 16:29:40 OBGyn Episode No OBEpisode recorded.
== END 2024-07-30 11:08 | disposition home or self-care (01) ==
PROVIDERS: PCP Internal Medicine; Visit Provider Internal Medicine Hypertension Specialist
DX: N18.9 Chronic kidney disease, unspecified (principal)
CPT/HCPCS: 99214

== ENCOUNTER 2024-08-05 15:39 | Outpatient (AMB) | payer MEDICARE, MEDICAID, SELFPAY ==
[2024-08-05 15:44] VITALS: BP 136/78; PULSE 86; O2SAT 98; BMI 34.6
--- NOTE | 2024-08-05 15:44 | MHC.PC.OV ---
Vital Signs 08/05/24 15:44 Height 5 ft 2 in Weight 189 lb BMI 34.6 BP 136/78 Blood Pressure Location Lt brachial Position Sitting Pulse 86 Pulse Source Pulse Oximeter Pulse Oximetry (%) 98 Oxygen Delivery Method Room Air Intake Visit Reasons: hypothyroidism, hyperlipidemia Environmental Issues Instructor Required: No Accompanied by: Self / Same As Patient Allergies tramadol Allergy (Severe, Verified 08/05/24 16:14) Rash environmental allergies Allergy (Unknown, Verified 08/05/24 16:14) Unknown Medication List - Last Reconciled 08/05/24 by Jakob Reynolds MD cholecalciferol (vitamin D3) 50 mcg PO DAILY 90 days cyanocobalamin (vitamin B-12) 1,000 mcg PO DAILY 90 days doxycycline hyclate 100 mg PO BID 10 days fluticasone propionate 50 mcg/actuation 2 sprays intranasal DAILY PRN 30 days levothyroxine 75 mcg PO DAILY 90 days loratadine 10 mg PO DAILY lorazepam 0.5 mg PO BID PRN 30 days rosuvastatin 5 mg PO DAILY sertraline 100 mg PO DAILY Tobacco use date assessed: 08/05/24 Fall risk assessment: 2 + Falls in past year Last assessed Fall Risk: 08/05/24 Dental Screening Dental Screen Date: 08/05/24 Did you have a dental visit in the last 12 months?: Yes Did you have a dental problem in the last 6 months where you did not have access to dental care?: No Was dental information given to patient?: Patient has dentist HPI hypothyroidism, hyperlipidemia HPI Details Patient comes in today for her follow-up visit States that she feels okay and that her previous symptoms of left breast mastitis have improved significantly with antibiotic Tx and they are currently almost completely resolved now States that she only has a couple of days left on her current Doxycycline Rx She denies any headaches or dizziness Denies any chest pains, no increased shortness of breath No nausea/vomiting, no abdominal pain No change in bowel habits noted She had her follow-up labs done last week - to discuss her results [facility] Medical History (Updated 08/06/24 @ 06:08 by Jakob Reynolds MD) Chronic kidney disease, stage III (moderate) Chronic kidney disease, stage 4 (severe) Vitamin D deficiency Hypothyroidism (acquired) Vitamin B12 deficiency Obesity (BMI 30-39.9) Depression Allergic rhinitis Impaired fasting glucose Pure hypercholesterolemia Benign essential hypertension Squamous cell carcinoma of nasopharynx Pre-op examination Hypertension Pre-op examination Asthma Recurrent sinus infections Neck mass Anxiety Osteoarthritis of hand Dyspnea Cervical adenopathy MELLY (obstructive sleep apnea) Asthma Surgical History No pertinent past surgical history Family History Father Hypertension Cardiovascular disease Mother Unknown family medical history Social History Housing: House Alcohol intake: current Alcohol intake frequency: holidays/special occasions only Patient Tobacco Use Status: Former Tobacco user Years Smoked: 44 years but stopped for years at a time e-Cigarette/Vaping Use: Never Used Second Hand Smoke Exposure: Yes service: No Current occupational status: unemployed and disabled Cognitive needs: No Hearing needs: No Vision needs: Yes (glasses) Questionnaire PHQ-9 Over the last 2 weeks, how often have you been bothered by any of the following problems? 1. Little interest or pleasure in doing things: not at all 2. Feeling down, depressed, or hopeless: not at all 3. Trouble falling or staying asleep, or sleeping too much: not at all 4. Feeling tired or having little energy: not at all 5. Poor appetite or overeating: not at all 6. Feeling bad about yourself - or that you are a failure or have let yourself or your family down: not at all 7. Trouble concentrating on things, such as reading the newspaper or watching television: not at all 8. Moving or speaking so slowly that other people could have noticed. Or the opposite - being so fidgety or restless that you have been moving around a lot more than usual: not at all 9. Thoughts that you would be better off or of hurting yourself in some way: not at all Total score: 0 Depression Screening Interpretation: Negative Depression Screening Done: Yes 18107 - PHQ-9 Billing: Yes Source: Developed by Drs. Eddie Maldonado, Isabel Castellanos, Jose Puga and colleagues, with an educational bree from [employer]. Thrive Questionnaire Date Thrive assessed: 08/05/24 I am a: Patient What is your living situation today?: I have a steady place to live Within the past 12 months, did the food you bought not last and you didn't have the money to get more?: Never true Within the past 12 months, did you worry whether your food would run out before you got money to buy more?: Never true Do you have trouble paying for medicines?: No Do you have trouble getting transportation to medical appointments?: No Do you have trouble paying your heating and electricity bill?: No Do you have trouble taking care of your child, family member or friend?: No Do you have trouble with day-to-day activities such as bathing, preparing meals, shopping, managing finances, etc.?: No Are you currently unemployed and looking for a job?: No Are you interested in more education?: No Please select the resources that you would like help with: None Currently or been in a relationship where the following occur: No concerns reported THRIVE Score: 0 AUDIT C Alcohol Use Questionnaire (AUDIT-C) 1. How often do you have a drink containing alcohol?: Never 3. How often do you have six or more drinks on one occasion?: Never Total Score: 0 Score Reviewed/Action Taken: Yes DAVIS-7 AMB Questionnaire DAVIS-7 Date DAVIS - 7 assessed: 08/05/24 Feeling nervous, anxious, or on edge: 0 = Not at all Not being able to stop or control worryin = Not at all Worrying too much about different things: 0 = Not at all Trouble relaxin = Not at all Being so restless that it is hard to sit still: 0 = Not at all Becoming easily annoyed or irritable: 0 = Not at all Feeling afraid as if something awful might happen: 0 = Not at all Total DAVIS-7 score (0-4 normal; 5-9 mild; 10-14 moderate; 15-21 severe): 0 Source: Developed by Drs. Eddie Maldonado, Isabel Castellanos, Jose Puga and colleagues, with an educational bree from [employer]. Review of Systems Const Denies chills, Denies fatigue, Denies fever(s) and Denies headache(s) ENT Denies dysphagia, Denies dizziness, Reports dry mouth (at times), Denies otalgia, Denies headache(s), Denies neck pain, Denies odynophagia, Reports tinnitus (on and off) and Denies sore throat Card Denies chest pain, Denies palpitations and Denies dyspnea Resp Denies chest congestion, Denies cough and Denies dyspnea GI Denies abdominal pain, Denies constipation, Denies dysphagia, Denies heartburn, Denies diarrhea, Denies nausea, Denies odynophagia and Denies vomiting Denies difficulty voiding, Denies nocturia and Denies dysuria Musc Denies back pain, Denies neck pain and Reports tingling (in both lower extremities) Skin/Breast Denies rash Neuro Denies dizziness, Denies headache(s), Reports tingling (in both lower extremities) and Reports paresthesias Endo Denies fatigue and Denies palpitations Physical exam (Primary Care) Vital Signs: Last Vital Signs Pulse 86 08/05/24 15:44 BP 136/78 08/05/24 15:44 Pulse Ox 98 08/05/24 15:44 Oxygen Delivery Method Room Air 08/05/24 15:44 BMI result Body Mass Index 34.6 Tobacco/Smoking Status: Tobacco use Status Tobacco use date assessed 08/05/24 08/05/24 15:54 Patient Tobacco Use Status Former Tobacco user 08/05/24 15:54 e-Cigarette/Vaping Use Never Used 08/05/24 15:54 PHQ-9: PHQ-9 Score PHQ-9: Total score 0 08/05/24 16:20 Depression Screening Interpretation: Negative Thrive Assessment: Date of Thrive Assessment Date Thrive assessed 08/05/24 08/05/24 15:54 Currently or been in a relationship where the following occur: No concerns reported Const General: no acute distress and alert HENMT Ears: TM's normal bilaterally and EAC's normal Throat: Yes posterior oropharynx normal and Yes tonsils normal (no TP congestion noted) Neck Neck: Yes supple and No lymphadenopathy Thyroid: Thyroid normal Resp Auscultation: clear to auscultation bilaterally, no rales and no wheezes Cardio Rate: regular rate Rhythm: regular rhythm Heart sounds: no murmurs GI Palpation (GI): Soft to palpation and nontender Auscultation: normal bowel sounds General: Yes no CVA tenderness Back/Spine/Pelvis Back: no CVA tenderness Thoracic/Lumbar Spine: No lumbar spinal tenderness Skin Rashes: no rashes Extrem General: Yes no clubbing, cyanosis or edema Results Reviewed Results Reviewed: Laboratory Tests 12/10/23 07/30/24 07/30/24 10:26 11:01 11:04 WBC 6.0 Hgb 11.7 L Hct 35.8 L Plt Count 290 Sodium 136 Potassium 3.9 Creatinine 1.16 Estimated GFR 47 Fasting Glucose 86 Calcium 10.3 H AST 41 H ALT 26 Triglycerides 169 H Cholesterol 175 LDL Cholesterol, Calc 93 HDL Cholesterol 49 Vitamin B12 > 2000 H 25-OH Vitamin D Total 65.8 TSH 5.89 H Free T4 1.24 Ur Specific Sargent 1.015 Urine Protein Negative Urine Glucose (UA) Negative Urine Blood Negative Urine Nitrite Negative Ur Leukocyte Esterase Negative Thyroid Peroxidase Ab 765 H Coding Level of Care Code Est Pt Level 4 (63373) Complex EM visit Add On G2211 Diagnoses Squamous cell carcinoma of nasopharynx C11.9 Neuropathy G62.9 Pure hypercholesterolemia E78.00 Benign essential hypertension I10 Stage 3a chronic kidney disease N18.31 Chronic kidney disease stage 3 subtype: stage 3a (GFR 45-59) Impaired fasting glucose R73.01 Hypothyroidism (acquired) E03.9 Vitamin B12 deficiency E53.8 Vitamin D deficiency E55.9 Uncomplicated asthma, unspecified asthma severity, unspecified whether persistent J45.909 Asthma severity: unspecified severity Asthma persistence: unspecified Asthma complication type: uncomplicated Allergic rhinitis, unspecified seasonality, unspecified trigger J30.9 Allergic rhinitis trigger: unspecified Allergic rhinitis seasonality: unspecified Anxiety F41.9 Episode of recurrent major depressive disorder, unspecified depression episode severity F33.9 Depression Type: major depressive disorder Major depression recurrence: recurrent Active/Remission status: currently active Major depression episode severity: unspecified Obesity (BMI 30-39.9) E66.9 Additional Codes PHQ-9 - 74967 - PHQ-9 Billing: Yes ([id number]) Assessment & Plan Assessment & Plan (1) Squamous cell carcinoma of nasopharynx: Comment: diagnosed in 2020 Code(s): C11.9 - Malignant neoplasm of nasopharynx, unspecified Category: Medical Plan: Patient completed her concurrent Cisplatin and radiation therapy for squamous cell carcinoma of the nasopharynx back in November 2020 and currently remains in remission Follow up with ENT and oncology as scheduled for continuing surveillance (2) Neuropathy: Code(s): G62.9 - Polyneuropathy, unspecified Category: Medical Plan: NCV & EMG done in April 2023 revealed (+) distal sensorimotor polyneuropathy, with axonal features. Continue Duloxetine 30 mg BID (3) Pure hypercholesterolemia: Code(s): E78.00 - Pure hypercholesterolemia, unspecified Category: Medical Plan: Results of her labs done last week reviewed and discussed with patient Reinforced low cholesterol diet Continue Rosuvastatin 5 mg QD Will recheck labs and fasting lipids in 4 months for follow up (4) Benign essential hypertension: Code(s): I10 - Essential (primary) hypertension Category: Medical Plan: Reinforced low sodium diet - goal is systolic BP of at least 130 mm or less She used to be on Amlodipine 10 mg QD and Atenolol 25 mg QD but these were discontinued by Nephrology a few months ago due to KELY and hypotension She currently appears to be doing well on no antihypertensives She is reminded to continue monitoring her blood pressure regularly (5) Chronic kidney disease, stage III (moderate): Code(s): N18.30 - Chronic kidney disease, stage 3 unspecified Category: Medical Qualifiers: Chronic kidney disease stage 3 subtype: stage 3a (GFR 45-59) Qualified Code(s): N18.31 - Chronic kidney disease, stage 3a Plan: Have advised patient that renal function appears to have stabilized and improved since she was taken off amlodipine and atenolol by Nephrology few months ago Her renal function has improved from stage IV to stage III CKD Have encouraged the patient to continue to drink plenty of fluids and stay hydrated We will continue to monitor her renal function regularly Follow-up with nephrology as scheduled (6) Impaired fasting glucose: Code(s): R73.01 - Impaired fasting glucose Category: Medical Plan: Her FBS was normal at 86 mg/dL on her recent labs Her HgbA1c was normal at 4.9% and 5.5% when previously checked Reinforced low calorie diet/exercise as tolerated. (7) Hypothyroidism (acquired): Code(s): E03.9 - Hypothyroidism, unspecified Category: Medical Plan: Patient's serum TSH level was slightly elevated but her free T4 was normal on her recent labs Her TPO Ab was elevated at 765 IU/ml when checked in December 2023, consistent with autoimmune thyroiditis or Bang's disease Continue Levothyroxine 75 mcg QD Will recheck her TFTs in 4 months for follow-up (8) Vitamin B12 deficiency: Code(s): E53.8 - Deficiency of other specified B group vitamins Category: Medical Plan: Continue Vitamin B12 1000 mcg QD (9) Vitamin D deficiency: Code(s): E55.9 - Vitamin D deficiency, unspecified Category: Medical Plan: Continue Vitamin D3 2000 units QD (10) Asthma: Comment: Mild. Needs to use Albuterol MDI 2 puffs q 4-6 Hrs only PRN Code(s): J45.909 - Unspecified asthma, uncomplicated Category: Medical Qualifiers: Asthma severity: unspecified severity Asthma persistence: unspecified Asthma complication type: uncomplicated Qualified Code(s): J45.909 - Unspecified asthma, uncomplicated Plan: Stable - she has Albuterol HFA that he uses at 1 to 2 puffs 4 times a day as needed but has not needed to use this in a while (11) Allergic rhinitis: Code(s): J30.9 - Allergic rhinitis, unspecified Category: Medical Qualifiers: Allergic rhinitis trigger: unspecified Allergic rhinitis seasonality: unspecified Qualified Code(s): J30.9 - Allergic rhinitis, unspecified Plan: Continue Loratadine 10 mg QD and Fluticasone nasal spray 50 mcg QD PRN (12) Anxiety: Code(s): F41.9 - Anxiety disorder, unspecified Category: Medical Plan: Continue Lorazepam 0.5 mg BID PRN (13) Depression: Code(s): F32.9 - Major depressive disorder, single episode, unspecified Category: Medical Qualifiers: Depression Type: major depressive disorder Major depression recurrence: recurrent Active/Remission status: currently active Major depression episode severity: unspecified Qualified Code(s): F33.9 - Major depressive disorder, recurrent, unspecified Plan: Continue Duloxetine 30 mg BID and Mirtazapine 7.5 mg Q HS Follow up with psychiatry as scheduled (14) Obesity (BMI 30-39.9): Code(s): E66.9 - Obesity, unspecified Category: Medical Plan: Reinforce diet/exercise as tolerated/lose weight Plan Follow up in 4 months Orders: Orders Comprehensive [place]. Panel Fast 4 Months E78.00 - Pure hypercholesterolemia, unspecified Lipid Panel 4 Months E78.00 - Pure hypercholesterolemia, unspecified Complete Blood Count Auto Diff 4 Months D64.9 - Anemia, unspecified Free T4 (Free Thyroxine) 4 Months E03.9 - Hypothyroidism, unspecified Thyroid Stimulating Hormone 4 Months E03.9 - Hypothyroidism, unspecified UA CC w/rflx Micro + Cult 4 Months R30.0 - Dysuria Vitamin D 25-OH Total 4 Months E55.9 - Vitamin D deficiency, unspecified
--- OUTSIDE RECORDS SUMMARY | 2024-08-05 16:28 | XMS_ITS | Data Portability ---
Author Organization [place] - [facility], Allergy Address [address] [address] Assessment Encounter Date Assessment Date Assessment LastModified [...] this plan and has no further questions. [email or web address] Not available 04/14/2024 12:04:24 Plan of Treatment [...] 20 mg capsule,d elayed release 2023 024 [facility]/Pharmacy #[id number], [address], [place], [address], 04/14/2024 12:05:18 Patient TargetsNo targets recorded. Patient InstructionsNo instructions recorded. Reason for Referral None Reported. Problems Name Problem SNOMED Code Status Onset Date Resolution Date Notes Provider Name and Address Organization Details Recorded Time Mass of neck 700494046 Active 2021 Localized swelling, mass and lump, neck; Note: Date Diagnosed : 08/04/2021 10:20 AM (R22.1) Not Available [facility] 4 03:12:11 Neck swelling 997942131 Active 2021 Localized swelling, mass and lump, neck; Note: Date Diagnosed : 08/04/2021 10:20 AM (R22.1) Not Available [facility] 4 03:12:11 Follow-up visit Active 2020 Encounter for follow-up examinati on after completed treatment for malignant neoplasm; Note: Date Diagnosed : 02/22/2021 9:25 AM (Z08) Not Available [facility] 4 03:12:11 Eustachia n tube disorder 25127997 Active 2019 Other specified disorders of Eustachia n tube, unspecifi ed ear; Note: Date Diagnosed : 0 12:07 PM (H69.80) Not Available [facility] 4 03:12:12 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 Personal history of malignant neoplasm of unspecifi ed site of lip, oral cavity, and pharynx; Note: Date Diagnosed : 03/27/2022 8:41 AM (Z85.819) Not Available [facility] 4 03:12:10 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 920096815 Active 2019 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; Note: Date Diagnosed : 0 10:26 AM (C11.1) Not Available [facility] 4 03:12:10 Allergic rhinitis caused by pollen 93646660 Active 2019 Allergic rhinitis due to pollen; Note: Date Diagnosed : 0 12:07 PM (J30.1) Not Available [facility] 4 03:12:11 Allergic rhinitis 38400508 Active 2021 Allergic rhinitis, unspecifi ed; Note: Date Diagnosed : 08/04/2021 10:20 AM (J30.9) Allergi c rhinitis, unspecifi ed; Note: Date Diagnosed : 02/22/2021 9:25 AM (J30.9) ; Start Date : 1 Not Available [facility] 4 03:12:11 Nasal congestio n 36784097 Active 2021 Nasal congestio n; Note: Date Diagnosed : 09/13/2021 12:25 PM (R09.81) Not Available [facility] 4 03:12:10 History of malignant neoplasm of pharynx 77603384169 107 Active 2021 Personal history of malignant neoplasm: Other and unspecifi ed oral cavity and pharynx; Note: Date Diagnosed : 03/27/2022 8:41 AM (V10.02) Not Available [facility] 4 03:12:10 Gastroeso phageal reflux disease without esophagit is 177194639 Active 2023 CARYN ROBERTS PA-C [address] [place] [address], [place], [phone] , [facility] - [facility] 4 12:04:31 Chronic hoarsenes s 93883543212 05 Active 2023 CARYN ROBERTS PA-C [address] [place] [address], [place], [address] , [place] - [facility] 4 12:04:38 Problem Notes None recorded. Procedures Surgical History Date Name Laterality Status Provider Name and Address Organization Details Recorded Time 06/04/2024 FFL_RE completed EDWIN CAIN MD [address] [place] [address], [phone], [place] - [facility] 06/04/2024 16:27:33 04/14/2024 FOL_DP completed CARYN ROBERTS PA-C [address] [place] [address], [phone], [facility] - [facility] 04/14/2024 12:03:17 Imaging Results None recorded. [...] mg tablet 2020 active Medicati on ID: [id number] D uration Value: 30 Prescri bed By [...] mg tablet 2019 active Medicati on ID: [id number] B rand Name: hydrocod one-acet aminophe n [...] aerosol inhaler 2019 active Medicati on ID: [id number] B rand Name: albutero l sulfate Send Method: E-Prescr ibed Sub s Allowed: subs [place] Medic ationGen ericName : albutero l sulfate Not Available Not Available Not Available fluticaso ne propionat e 50 mcg/actua tion nasal spray,nia pension 2019 active Medicati on ID: [id number] B rand Name: fluticas one propiona te Send Method: E-Prescr ibed Sub s Allowed: subs [place] Medic ationGen ericName : fluticas one propiona te Not Available Not Available Not Available loratadin e 10 mg tablet 2019 active Medicati on ID: [id number] B rand Name: loratadi ne Send Method: [...] Updated DateTime 04/14/2024 157.48 cm 33.3 kg/m2 86907.81 g Klarissa Noelle [place] - [facility] 04/14/2024 11:22:18 Date Recorded Body height Body mass index (BMI) Body weight Provider Name and Address Organization Details Last Updated DateTime 06/04/2024 157.48 cm 33.3 kg/m2 26873.81 g Selene Mchugh [facility] 06/04/2024 15:24:27 Social History None recorded. Functional [...] Diagnosis Note JACEK NI MD [facility] [address] [address] 04/14/2024 11:02:04 04/14/2024 11:34:51 Gastroesophageal reflux disease without esophagitis 667639653 K21.9 Chronic hoarseness 53047 56192 105 R49.0 History of malignant neoplasm of head and/or neck 930099247 Z85.89 [id number] EDWIN CAIN MD [facility] [address] [address] 06/04/2024 15:09:34 06/04/2024 16:14:46 History of malignant neoplasm of head and/or neck 053927937 Z85.89 Exam and Laryngosco py showed no evidence of disease. We will continue routine surveillan ce. I gave reassuranc e I don't see a vocal cord lesion on exam today. She will f/u in 6 months for continued surveillan ce. Screening for malignant neoplasm of respiratory tract 415206837 Z12.2 Exam and Laryngosco py showed no [...] Lara Member ID Guarantor Name 04/14/2024 1 [facility] Vivian Dorsey [id number] Vivian Dorsey 06/04/2024 1 [facility] Vivian Dorsey [id number] Vivian Dorsey Notes Date Note Type Note [...] after her initial diagnosis. JACEK NI MD [address] [place] [address], [phone], [place] - [facility] 04/14/2024 12:44:54 06/04/2024 text/html 63-year-old iris lewis with a history of nasopharyngeal carcinoma treated with chemotherapy and radiation which was completed in 2020. Her posttreatment PET was clear. She was lost to f/u and saw Caryn who noted a possible right vocal cord lesion. EDWIN CAIN MD [address] [place] [address], [phone], [facility] 06/04/2024 16:29:40 OBGyn Episode No OBEpisode recorded.
== END 2024-08-05 16:32 | disposition home or self-care (01) ==
PROVIDERS: PCP Internal Medicine; Visit Provider Internal Medicine
DX: I12.9 Hypertensive chronic kidney disease with stage 1 through stage 4 chronic kidney disease, or unspecified chronic kidney disease (principal); C11.9 Malignant neoplasm of nasopharynx, unspecified; N18.31 Chronic kidney disease, stage 3a; F33.9 Major depressive disorder, recurrent, unspecified; G62.9 Polyneuropathy, unspecified; E78.00 Pure hypercholesterolemia, unspecified; R73.01 Impaired fasting glucose; E03.9 Hypothyroidism, unspecified; E53.8 Deficiency of other specified B group vitamins; E55.9 Vitamin D deficiency, unspecified; J45.909 Unspecified asthma, uncomplicated; J30.9 Allergic rhinitis, unspecified

== ENCOUNTER → 2024-08-05 15:39 | Outpatient (BNVA) | payer MEDICARE, MEDICAID, SELFPAY | PROVIDERS: PCP Internal Medicine; Visit Provider Internal Medicine | DX: C11.9 Malignant neoplasm of nasopharynx, unspecified (principal); G62.9 Polyneuropathy, unspecified; E78.00 Pure hypercholesterolemia, unspecified; I12.9 Hypertensive chronic kidney disease with stage 1 through stage 4 chronic kidney disease, or unspecified chronic kidney disease; N18.31 Chronic kidney disease, stage 3a; R73.01 Impaired fasting glucose; E03.9 Hypothyroidism, unspecified; E55.9 Vitamin D deficiency, unspecified; J45.909 Unspecified asthma, uncomplicated; F41.9 Anxiety disorder, unspecified; F33.9 Major depressive disorder, recurrent, unspecified; E66.9 Obesity, unspecified | CPT/HCPCS: 96127; 99212 ==

== ENCOUNTER 2025-06-25 10:15 | Outpatient (REF) | payer MEDICARE, MEDICAID, SELFPAY ==
[2025-06-25 13:07] LABS: MANUAL DIFF FLAG NO
[2025-06-25 13:09] LABS: Hematocrit 36.7 % (37.0-47.0); Hemoglobin 12.5 g/dl (12.0-16.0); Imm Gran Abs Auto 0.01 X10*3/uL (0.00-0.03); Imm Gran Pct Auto 0.2 % (0.0-0.4); Lymphocytes Absolute Auto 1.1 X10*3/uL (1.2-4.9); Mean Corpuscular HGB Conc 34.1 g/dl (31.0-35.0); Mean Corpuscular Hemoglobin 34.6 pg (27.0-33.0); Mean Corpuscular Volume 101.7 fL (80.0-98.0); NRBC Abs Auto 0.000 X10*3/uL (0.0-0.012); NRBC Pct Auto 0.0 /100WBC (0.0-0.2); Platelet Count 203 X10*3/uL (160-400); Red Blood Count 3.61 X10*6/uL (4.20-5.50); White Blood Count 5.1 X10*3/uL (4.8-10.8)
[2025-06-25 13:49] LABS: Alanine Aminotransferase 11 U/L (0-31); Albumin Level 4.6 g/dL (3.5-5.0); Alkaline Phosphatase 100 U/L (39-117); Anion Gap 13 (12-20); Aspartate Amino Transferase 34 U/L (5-31); Blood Urea Nitrogen 11 mg/dL (9-16); Calcium 9.9 mg/dL (8.4-10.2); Carbon Dioxide 26 mmol/L (22-29); Chloride 101 mmol/L (96-108); Cholesterol 219 mg/dL (<200); Estimated Glomerular Filt Rate 50; HDL Cholesterol 78 mg/dL (>40); Potassium 4.1 mmol/L (3.3-5.1); Sodium 136 mmol/L (135-145); Total Protein 7.6 g/dL (6.5-8.0); Triglycerides 220 mg/dL (<150)
[2025-06-25 14:15] LABS: Free T4 (Free Thyroxine) 1.03 ng/dL (0.71-1.85); Thyroid Stimulating Hormone 2.57 uIU/mL (0.32-4.0)
== END 2025-06-25 10:16 | disposition home or self-care (01) ==
LOC: HO.10HDL 10:15
PROVIDERS: Visit Provider Internal Medicine
DX: E78.00 Pure hypercholesterolemia, unspecified (principal); E03.9 Hypothyroidism, unspecified; D64.9 Anemia, unspecified; E55.9 Vitamin D deficiency, unspecified
CPT/HCPCS: 36415; 80053; 80061; 82306; 84439; 84443; 85025

== ENCOUNTER 2025-06-26 16:08 | Outpatient (AMB) | payer MEDICARE, MEDICAID, SELFPAY ==
[2025-06-26 16:20] VITALS: BP 148/100; PULSE 97; RESP 18; O2SAT 98; BMI 31.9
--- NOTE | 2025-06-26 16:20 | A.OFFPC_ITS ---
Vital Signs 06/26/25 16:20 06/26/25 16:55 Height 5 ft 2 in Weight 174 lb 4 oz BMI 31.9 BP 148/100 H 142/96 H Blood Pressure Location Lt brachial Lt brachial Position Sitting Sitting Respiration 18 Pulse 97 Pulse Source Pulse Oximeter Temp Source Temporal Artery Scan Pulse Oximetry (%) 98 Oxygen Delivery Method Room Air Intake Visit Reasons: follow up Geriatric Aide Required: No Accompanied by: Self / Same As Patient Allergies tramadol Allergy (Severe, Verified 06/26/25 16:50) Rash environmental allergies Allergy (Unknown, Verified 06/26/25 16:50) Unknown Medication List - Last Reconciled 06/26/25 by Jakob Reynolds MD cholecalciferol (vitamin D3) 50 mcg PO DAILY 90 days cyanocobalamin (vitamin B-12) 1,000 mcg PO DAILY 90 days fluticasone propionate 50 mcg/actuation 2 sprays intranasal DAILY PRN 30 days levothyroxine 75 mcg PO DAILY 90 days loratadine 10 mg PO DAILY lorazepam 0.5 mg PO BID PRN 30 days rosuvastatin 5 mg PO DAILY sertraline 100 mg PO DAILY Tobacco use date assessed: 06/26/25 Fall risk assessment: 2 + Falls in past year Last assessed Fall Risk: 06/26/25 Dental Screening Dental Screen Date: 06/26/25 Did you have a dental visit in the last 12 months?: No Did you have a dental problem in the last 6 months where you did not have access to dental care?: No Was dental information given to patient?: Patient has dentist HPI follow up HPI Details Patient comes in today for her follow-up visit - she was last seen in July 2024 States that she feels okay She denies any headaches or dizziness Denies any chest pains, no increased shortness of breath No nausea/vomiting, no abdominal pain No change in bowel habits noted She had her follow-up labs done yesterday - to discuss her results [facility] Medical History (Updated 06/26/25 @ 19:36 by Jakob Reynolds MD) Chronic kidney disease, stage III (moderate) Chronic kidney disease, stage 4 (severe) Vitamin D deficiency Hypothyroidism (acquired) Vitamin B12 deficiency Obesity (BMI 30-39.9) Depression Allergic rhinitis Impaired fasting glucose Pure hypercholesterolemia Benign essential hypertension Squamous cell carcinoma of nasopharynx Hypertension Asthma Recurrent sinus infections Neck mass Anxiety Osteoarthritis of hand Dyspnea Cervical adenopathy MELLY (obstructive sleep apnea) Asthma Surgical History No pertinent past surgical history Family History Father Hypertension Cardiovascular disease Mother Unknown family medical history Social History Housing: House Alcohol intake: current Alcohol intake frequency: holidays/special occasions only Patient Tobacco Use Status: Former Tobacco user Years Smoked: 44 years but stopped for years at a time e-Cigarette/Vaping Use: Never Used Second Hand Smoke Exposure: Yes service: No Current occupational status: unemployed and disabled Cognitive needs: No Hearing needs: No Vision needs: Yes (glasses) Questionnaire Thrive Questionnaire Date Thrive assessed: 08/05/24 DAVIS-7 AMB Questionnaire DAVIS-7 Date DAVIS - 7 assessed: 08/05/24 Source: Developed by Drs. Eddie Maldonado, Isabel Castellanos, Jose Puga and colleagues, with an educational bree from [employer]. Review of Systems Const Denies chills, Denies fatigue, Denies fever(s) and Denies headache(s) ENT Denies dysphagia, Denies dizziness, Reports dry mouth (at times), Denies otalgia, Denies headache(s), Denies neck pain, Denies odynophagia, Reports tinnitus (on and off) and Denies sore throat Card Denies chest pain, Denies palpitations and Denies dyspnea Resp Denies chest congestion, Denies cough and Denies dyspnea GI Denies abdominal pain, Denies constipation, Denies dysphagia, Denies heartburn, Denies diarrhea, Denies nausea, Denies odynophagia and Denies vomiting Denies difficulty voiding, Denies nocturia and Denies dysuria Musc Denies back pain, Denies neck pain and Reports tingling (in both lower extremities) Skin/Breast Denies rash Neuro Denies dizziness, Denies headache(s), Reports tingling (in both lower extremities) and Reports paresthesias Endo Denies fatigue and Denies palpitations Physical exam (Primary Care) Vital Signs: Last Vital Signs Pulse 97 06/26/25 16:20 Resp 18 06/26/25 16:20 BP 142/96 H 06/26/25 16:55 Pulse Ox 98 06/26/25 16:20 Oxygen Delivery Method Room Air 06/26/25 16:20 BMI result Body Mass Index 31.9 Tobacco/Smoking Status: Tobacco use Status Tobacco use date assessed 06/26/25 06/26/25 16:30 Patient Tobacco Use Status Former Tobacco user 06/26/25 16:30 e-Cigarette/Vaping Use Never Used 06/26/25 16:30 Thrive Assessment: Date of Thrive Assessment Date Thrive assessed 08/05/24 06/26/25 16:30 Const General: no acute distress and alert HENMT Ears: TM's normal bilaterally and EAC's normal Throat: Yes posterior oropharynx normal and Yes tonsils normal (no TP congestion noted) Neck Neck: Yes supple and No lymphadenopathy Thyroid: Thyroid normal Resp Auscultation: clear to auscultation bilaterally, no rales and no wheezes Cardio Rate: regular rate Rhythm: regular rhythm Heart sounds: no murmurs GI Palpation (GI): Soft to palpation and nontender Auscultation: normal bowel sounds General: Yes no CVA tenderness Back/Spine/Pelvis Back: no CVA tenderness Thoracic/Lumbar Spine: No lumbar spinal tenderness Skin Rashes: no rashes Extrem General: Yes no clubbing, cyanosis or edema Results Reviewed Results Reviewed: Laboratory Tests 06/25/25 06/25/25 10:20 10:26 WBC 5.1 Hgb 12.5 Hct 36.7 L Plt Count 203 D Sodium 136 Potassium 4.1 Creatinine 1.10 Estimated GFR 50 Fasting Glucose 93 Calcium 9.9 AST 34 H ALT 11 Triglycerides 220 H Cholesterol 219 H LDL Cholesterol, Calc 97 HDL Cholesterol 78 25-OH Vitamin D Total 59.4 TSH 2.57 Free T4 1.03 Coding Level of Care Code Est Pt Level 4 (30514) Diagnoses Squamous cell carcinoma of nasopharynx C11.9 Neuropathy G62.9 Pure hypercholesterolemia E78.00 Benign essential hypertension I10 Stage 3a chronic kidney disease N18.31 Chronic kidney disease stage 3 subtype: stage 3a (GFR 45-59) Impaired fasting glucose R73.01 Hypothyroidism (acquired) E03.9 Vitamin B12 deficiency E53.8 Vitamin D deficiency E55.9 Uncomplicated asthma, unspecified asthma severity, unspecified whether persistent J45.909 Asthma complication type: uncomplicated Asthma persistence: unspecified Asthma severity: unspecified severity Allergic rhinitis, unspecified seasonality, unspecified trigger J30.9 Allergic rhinitis seasonality: unspecified Allergic rhinitis trigger: unspecified Anxiety F41.9 Episode of recurrent major depressive disorder, unspecified depression episode severity F33.9 Active/Remission status: currently active Depression Type: major depressive disorder Major depression episode severity: unspecified Major depression recurrence: recurrent Obesity (BMI 30-39.9) E66.9 Assessment & Plan Assessment & Plan (1) Squamous cell carcinoma of nasopharynx: Comment: diagnosed in 2020 Code(s): C11.9 - Malignant neoplasm of nasopharynx, unspecified Category: Medical Plan: Patient completed her concurrent Cisplatin and radiation therapy for squamous cell carcinoma of the nasopharynx back in November 2020 and currently remains in remission Follow up with ENT and oncology as scheduled for continuing surveillance (2) Neuropathy: Code(s): G62.9 - Polyneuropathy, unspecified Category: Medical Plan: NCV & EMG done in April 2023 revealed (+) distal sensorimotor polyneuropathy, with axonal features. Continue Duloxetine 30 mg BID (3) Pure hypercholesterolemia: Code(s): E78.00 - Pure hypercholesterolemia, unspecified Category: Medical Plan: Results of her labs done yesterday reviewed and discussed with patient Reinforced low cholesterol diet Continue Rosuvastatin 5 mg QD Will recheck labs and fasting lipids in 4 months for follow up (4) Benign essential hypertension: Code(s): I10 - Essential (primary) hypertension Category: Medical Plan: Reinforced low sodium diet - goal is systolic BP of at least 130 mm or less She used to be on Amlodipine 10 mg QD and Atenolol 25 mg QD but these were discontinued by Nephrology a few months ago due to KELY and hypotension She currently appears to be doing well on no antihypertensives She is reminded to continue monitoring her blood pressure regularly (5) Chronic kidney disease, stage III (moderate): Code(s): N18.30 - Chronic kidney disease, stage 3 unspecified Category: Medical Qualifiers: Chronic kidney disease stage 3 subtype: stage 3a (GFR 45-59) Qualified Code(s): N18.31 - Chronic kidney disease, stage 3a Plan: Have advised patient that renal function appears to have stabilized and improved since she was taken off Amlodipine and Atenolol by Nephrology few months ago Her renal function has improved from stage IV to stage III CKD since Have encouraged the patient to continue to stay hydrated We will continue to monitor her renal function regularly Follow-up with nephrology as scheduled (6) Impaired fasting glucose: Code(s): R73.01 - Impaired fasting glucose Category: Medical Plan: Her FBS was normal at 93 mg/dL on her recent labs Her HgbA1c was normal at 4.9% and 5.5% when previously checked Reinforced low calorie diet/exercise as tolerated. (7) Hypothyroidism (acquired): Code(s): E03.9 - Hypothyroidism, unspecified Category: Medical Plan: Patient's TFTs were normal on her recent labs Her TPO Ab was elevated at 765 IU/ml when checked in December 2023, consistent with autoimmune thyroiditis or Bang's disease Continue Levothyroxine 75 mcg QD Will recheck her TFTs in 4 months for follow-up (8) Vitamin B12 deficiency: Code(s): E53.8 - Deficiency of other specified B group vitamins Category: Medical Plan: Continue Vitamin B12 1000 mcg QD (9) Vitamin D deficiency: Code(s): E55.9 - Vitamin D deficiency, unspecified Category: Medical Plan: Continue Vitamin D3 2000 units QD (10) Asthma: Comment: Mild. Needs to use Albuterol MDI 2 puffs q 4-6 Hrs only PRN Code(s): J45.909 - Unspecified asthma, uncomplicated Category: Medical Qualifiers: Asthma complication type: uncomplicated Asthma persistence: unspecified Asthma severity: unspecified severity Qualified Code(s): J45.909 - Unspecified asthma, uncomplicated Plan: Controlled Continue Albuterol HFA 1 to 2 inhalations 4 times a day as needed but patient states that she has not needed to use this lately (11) Allergic rhinitis: Code(s): J30.9 - Allergic rhinitis, unspecified Category: Medical Qualifiers: Allergic rhinitis seasonality: unspecified Allergic rhinitis trigger: unspecified Qualified Code(s): J30.9 - Allergic rhinitis, unspecified Plan: Continue Loratadine 10 mg QD and Fluticasone nasal spray 50 mcg QD PRN (Rx refilled) (12) Anxiety: Code(s): F41.9 - Anxiety disorder, unspecified Category: Medical Plan: Continue Lorazepam 0.5 mg BID PRN (13) Depression: Code(s): F32.9 - Major depressive disorder, single episode, unspecified Category: Medical Qualifiers: Active/Remission status: currently active Depression Type: major depressive disorder Major depression episode severity: unspecified Major depression recurrence: recurrent Qualified Code(s): F33.9 - Major depressive disorder, recurrent, unspecified Plan: Continue Duloxetine 30 mg BID and Mirtazapine 7.5 mg Q HS Follow up with psychiatry as scheduled (14) Obesity (BMI 30-39.9): Code(s): E66.9 - Obesity, unspecified Category: Medical Plan: Reinforce diet/exercise as tolerated/lose weight Plan Follow up in 4 months Orders: Orders Lipid Panel 4 Months E78.00 - Pure hypercholesterolemia, unspecified Free T4 (Free Thyroxine) 4 Months E03.9 - Hypothyroidism, unspecified Complete Blood Count Auto Diff 4 Months D64.9 - Anemia, unspecified Comprehensive [place]. Panel Fast 4 Months E78.00 - Pure hypercholesterolemia, unspecified Thyroid Stimulating Hormone 4 Months E03.9 - Hypothyroidism, unspecified Medications: Refilled fluticasone propionate 50 mcg/actuation administer into each nostril 2 sprays intranasal DAILY PRN 16 grams 5RF allergy symptoms 30 days
--- OUTSIDE RECORDS SUMMARY | 2025-06-26 16:45 | XMS_ITS | Data Portability ---
Author Organization [place] - [facility] Formerly [facility], Allergy Address [address] [address] Assessment Encounter Date Assessment Date Assessment LastModified [...] this plan and has no further questions. [email or web address] Not available 04/14/2024 12:04:24 Plan of Treatment Reminders Order Date Submit Date Provider Last Modified By Organization Details Last Modified Time Details Appointments Establish ed 30 2025 11:00A Satinder Vines MD Not available Not available Not available Lab None recorded. Referral None recorded. Procedures allergy testing, skin prick (PROC) - she is on atenolol 2024 025 [email or web address] Not available 12/24/2024 08:49:01 intraderm al allergy skin testing (PROC) 2024 025 [email or web address] Not available 12/24/2024 08:49:01 pulmonary function test procedure (PROC) 2024 025 [email or web address] Not available 12/24/2024 08:49:02 pulse oximetry (PROC) 2024 025 [email or web address] Not available 12/24/2024 08:49:02 Surgeries None recorded. Imaging None recorded. Medication Orders omeprazol e 20 mg capsule,d elayed release 2023 024 [facility] #[id number], [address] [facility], [place], [address], 04/14/2024 12:05:18 Patient TargetsNo targets recorded. Patient InstructionsNo instructions recorded. Reason for Referral None Reported. 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; Note: Date Diagnosed : 0 10:26 AM (C11.1) Not Available [facility] 4 03:12:10 Follow-up visit Active 2020 Encounter for follow-up examinati on after completed treatment for malignant neoplasm; Note: Date Diagnosed : 02/22/2021 9:25 AM (Z08) Not Available [facility] 4 03:12:11 Mass of neck 748134313 Active 2021 Localized swelling, mass and lump, neck; Note: Date Diagnosed : 08/04/2021 10:20 AM (R22.1) Not Available [facility] 4 03:12:11 Neck swelling 675910010 Active 2021 Localized swelling, mass and lump, neck; Note: Date Diagnosed : 08/04/2021 10:20 AM (R22.1) Not Available [facility] 4 03:12:11 Allergic rhinitis 97487184 Active 2021 Allergic rhinitis, unspecifi ed; Note: Date Diagnosed : 08/04/2021 10:20 AM (J30.9) Allergi c rhinitis, unspecifi ed; Note: Date Diagnosed : 02/22/2021 9:25 AM (J30.9) ; Start Date : 1 Not Available [facility] 4 03:12:11 Nasal congestio n 30006182 Active 2021 Nasal congestio n; Note: Date Diagnosed : 09/13/2021 12:25 PM (R09.81) Not Available [facility] 4 03:12:10 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 6368783144 Active 2021 Personal history of malignant neoplasm of unspecifi ed site of lip, oral cavity, and pharynx; Note: Date Diagnosed : 03/27/2022 8:41 AM (Z85.819) Not Available [facility] 4 03:12:10 History of malignant neoplasm of pharynx 79114167512 107 Active 2021 Personal history of malignant neoplasm: Other and unspecifi ed oral cavity and pharynx; Note: Date Diagnosed : 03/27/2022 8:41 AM (V10.02) Not Available [facility] 4 03:12:10 Gastroeso phageal reflux disease without esophagit is 966352761 Active 2023 CARYN ROBERTS PA-C [address] [facility] [address], [place], [address] , [facility] - [facility] 4 12:04:31 Chronic hoarsenes s 99551512133 05 Active 2023 CARYN ROBERTS PA-C [address] [facility] [address], [place], [address] , [facility] - [facility] 4 12:04:38 Seasonal allergic rhinitis 466704948 Active 2024 EDWIN CAIN MD [address] [facility],[place] [address], [place], [address] , [facility] 10:32:51 Non-aller gic rhinitis 14273481392 1 Active 2024 EDWIN CAIN MD [address] [place] [address], [phone] , [facility] 10:34:40 Problem Notes None recorded. Procedures Surgical History Date Name Laterality Status Provider Name and Address Organization Details Recorded Time 12/02/2024 FFL_RE completed EDWIN CAIN MD [address] [place] [address], [phone], [facility] 12/02/2024 10:32:16 06/04/2024 FFL_RE completed EDWIN CAIN MD [address] [place] [address], [phone], [facility] 06/04/2024 16:27:33 04/14/2024 FOL_DP completed CARYN ROBERTS PA-C [address] [place] [address], [phone], [facility] 04/14/2024 12:03:17 Imaging Results None recorded. Procedure Notes None recorded. Medical Equipment None Reported. Medications Name Sig Start Date Stop Date Status Note LastModified by Organization Details LastModified Time amoxicill in 500 mg capsule TAKE 1 CAPSULE BY MOUTH EVERY 12 HOURS UNTIL GONE active Not Available Not Available No t Available doxycycli ne hyclate 100 mg capsule TAKE 1 CAPSULE BY MOUTH TWICE A DAY FOR 10 DAYS active Not Available Not Available No t Available clindamyc in HCl 300 mg capsule TAKE 1 CAPSULE BY MOUTH EVERY 6 HOURS FOR 5 DAYS 04/14 completed Not Available Not Available Not Available cetirizin e 10 mg tablet 2020 active Medicati on ID: [id number] D uration Value: 30 Prescri bed By Name: Edwin corral MD Brand Name: cetirizi ne Send Method: E-Prescr ibed Sub s Allowed: subs OK Speci al Instruct ion: Take 1 tablet by mouth every day Medi cation nericNam e: cetirizi ne Not Available Not [...] mg tablet 2019 active Medicati on ID: [id number] B rand Name: hydrocod one-acet aminophe n [...] Not Available Not Available No t Available cyanocoba dhiraj (vit B-12) 1,000 mcg tablet TAKE 1 TABLET BY MOUTH EVERY DAY active Not Available Not Available No t Available sulfameth oxazole 800 mg-trimet hoprim 160 mg tablet TAKE 1 TABLET BY MOUTH TWICE A DAY FOR 5 DAYS 04/14 completed Not Available Not Available Not Available tramadol 50 mg tablet TAKE 1 TABLET BY MOUTH AT BEDTIME ONLY NEEDED FOR SEVERE PAIN active Not Available Not Available No t Available acetamino phen ER 650 mg tablet,ex tended release TAKE 1 TABLET BY MOUTH EVERY 8 HOURS NEEDED FOR PAIN active Not Available Not Available No t Available levothyro xine 75 mcg tablet TAKE 1 TABLET BY MOUTH EVERY DAY active Not Available Not Available No t Available lorazepam 0.5 mg tablet TAKE 1 TABLET BY MOUTH TWICE A DAY NEEDED FOR ANXIETY active Not Available Not [...] CAPSULE BY MOUTH EVERY 6 HOURS FOR 1 WEEK active Not Available Not Available No t Available omeprazol e 20 mg capsule,d elayed release TAKE 1 CAPSULE BY MOUTH EVERY DAY 2023 active Not Available Not Available Not Avai lable albuterol sulfate HFA 90 mcg/actua tion aerosol inhaler 2019 active Medicati on ID: [id number] B rand Name: albutero l sulfate Send Method: E-Prescr ibed Sub s Allowed: subs OK Medic ationGen ericName : albutero l sulfate Not Available Not Available Not Available fluticaso ne propionat e 50 mcg/actua tion nasal spray,nia pension 2019 active Medicati on ID: [id number] B rand Name: fluticas one propiona te Send Method: E-Prescr ibed Sub s Allowed: subs OK Medic ationGen ericName : fluticas one propiona te Not Available Not Available Not Available loratadin e 10 mg tablet 2019 active Medicati on ID: [id number] B rand Name: loratadi ne Send Method: E-Prescr ibed Sub s Allowed: subs OK Medic ationGen ericName : loratadi ne Not Available Not Available Not Available oxycodone 5 mg tablet TAKE 1/2 [...] completed Not Available Not Available Not Available cholecalc iferol (vitamin D3) 50 mcg (2,000 unit) capsule TAKE 1 CAPSULE BY MOUTH EVERY DAY active Not Available Not Available No t Available Vitals Date Recorded Body height Body mass index (BMI) Body weight Provider Name and Address Organization Details Last Updated DateTime 12/02/2024 157.48 cm 33.3 kg/m2 09034.81 g Servando Vallejo [facility] 12/02/2024 10:22:32 Date Recorded Body height Body mass index (BMI) Body weight Provider Name and Address Organization Details Last Updated DateTime 04/14/2024 157.48 cm 33.3 kg/m2 71741.81 g Klarissa Drake [place] - [facility] 04/14/2024 11:22:18 Date Recorded Body height Body mass index (BMI) Body weight Provider Name and Address Organization Details Last Updated DateTime 06/04/2024 157.48 cm 33.3 kg/m2 83339.81 g Selene Mchugh [place] - [facility] 06/04/2024 15:24:27 Social History None recorded. Functional Status None recorded. Mental Status None recorded. Family History Nothing Reported. Medical History No medical history recorded. Gynecological HistoryNo gynecological history recorded. Obstetrics History GPAL:G 0 P 0 0 0 0 Past Encounters Encounter ID Performer Location Encounter Start Date Encounter Closed Date Diagnosis/Indication Diagnosis SNOMED-CT Code Diagnosis ICD10 Code Diagnosis IMO Codes Diagnosis Note CARYN ROBERTS PA-C [facility] [address] [address] 04/14/2024 11:02:04 04/14/2024 11:34:51 Gastroesophageal reflux disease without esophagitis 673614492 K21.9 Chronic hoarseness 86217 61859 105 R49.0 History of malignant neoplasm of head and/or neck 924020304 Z85.89 [id number] EDWIN CAIN MD [facility] [address] [address] 06/04/2024 15:09:34 06/04/2024 16:14:46 History of malignant neoplasm of head and/or neck 993170554 Z85.89 Exam and Laryngosco py showed no evidence of disease. We will continue routine surveillan ce. I gave reassuranc e I don't see a vocal cord lesion on exam today. She will f/u in 6 months for continued surveillan ce. Screening for malignant neoplasm of respiratory tract 765177272 Z12.2 Exam and Laryngosco py showed no evidence of disease. We will continue [place] surveillan [place]. [id number] EDWIN CAIN MD [facility] [address] [address] 12/02/2024 09:41:10 12/02/2024 10:34:13 History of malignant neoplasm of head and/or neck 382673080 Z85.89 Exam and Laryngosco py showed no evidence of disease. We will continue routine surveillan ce. I gave reassuranc e I again don't see a vocal cord lesion on exam today. She will f/u in 6 months for continued surveillan ce. Screening for malignant neoplasm of respiratory tract 906612279 Z12.2 Exam and Laryngosco py showed no evidence of disease. We will continue routine surveillan ce. Seasonal a llergic rhinitis 538762188 J30.2 [id number] continue zyrtec PRN, Exam and history are consistent with allergic rhinitis. We will obtain allergy testing to clarify the extent of allergy with f/u to review. Health Concerns Section Related Observation LastModified by Organization Detai ls LastModified Time None Recorded Concern Status LastModified by Organization Details LastModified Time None Recorded Advance Directives Directive None Recorded Payers Insurance Date Sequence Insurance Name Policy Number Policy Lara Covered Member ID Lara Member ID Guarantor Name 12/02/2024 1 [facility] Vivian Dorsey [id number] Vivian Dorsey 12/02/2024 2 [facility] (MEDICAID HMO) Vivian Dorsey [id number] Vivian Dorsey 12/02/2024 1 [place] [employer] Vivian Dorsey [id number] Vivian Dorsey 12/02/2024 2 [place] [facility] Vivian Dorsey [id number] Vivian Dorsey 12/02/2024 1 [facility] Vivian Dorsey [id number] Vivian Dorsey 12/02/2024 2 [facility] Vivian Dorsey [id number] Vivian Dorsey Notes Date Note Type Note Provider Name and Address Organization Details Recorded Time 04/14/2024 text/html ROS as noted in the HPI 63-year-old female presents for reevaluation. She has a history [...] after her initial diagnosis. 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 Her posttreatment PET was clear. She was lost to f/u and saw Caryn who noted a possible right vocal cord lesion. 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 Her posttreatment PET was clear. She was lost to f/u briefly and presents for routine surveillance. No epistaxis, neck masses or throat pain. [facility] allergies with benefit. EDWIN CAIN MD [address] [facility] [place] [address], [place], [address], [facility] - [facility] 12/02/2024 10:35:30 OBGyn Episode No OBEpisode recorded.
[2025-06-26 16:55] VITALS: BP 142/96
== END 2025-06-26 16:59 | disposition home or self-care (01) ==
LOC: HO.HMCH 16:09
PROVIDERS: PCP Internal Medicine; Visit Provider Internal Medicine
DX: I12.9 Hypertensive chronic kidney disease with stage 1 through stage 4 chronic kidney disease, or unspecified chronic kidney disease (principal); N18.31 Chronic kidney disease, stage 3a; C11.9 Malignant neoplasm of nasopharynx, unspecified; E66.9 Obesity, unspecified; Z68.31 Body mass index [BMI] 31.0-31.9, adult; G62.9 Polyneuropathy, unspecified; E78.00 Pure hypercholesterolemia, unspecified; R73.01 Impaired fasting glucose; E03.9 Hypothyroidism, unspecified; E53.8 Deficiency of other specified B group vitamins; E55.9 Vitamin D deficiency, unspecified; J45.909 Unspecified asthma, uncomplicated; J30.9 Allergic rhinitis, unspecified; F41.9 Anxiety disorder, unspecified; F33.9 Major depressive disorder, recurrent, unspecified

== ENCOUNTER → 2025-06-26 16:08 | Outpatient (BNVA) | payer MEDICARE, MEDICAID, SELFPAY | PROVIDERS: PCP Internal Medicine; Visit Provider Internal Medicine | DX: Z71.2 Person consulting for explanation of examination or test findings (principal); C11.9 Malignant neoplasm of nasopharynx, unspecified; G62.9 Polyneuropathy, unspecified; E78.00 Pure hypercholesterolemia, unspecified; N18.31 Chronic kidney disease, stage 3a; R73.01 Impaired fasting glucose; E03.9 Hypothyroidism, unspecified; E55.9 Vitamin D deficiency, unspecified; J30.9 Allergic rhinitis, unspecified; F41.9 Anxiety disorder, unspecified; F33.9 Major depressive disorder, recurrent, unspecified; E66.9 Obesity, unspecified | CPT/HCPCS: 99212 ==